=== PATIENT | female | born 1975 | race Asian ===

== ENCOUNTER 2020-11-27 10:47 | Outpatient (REF) | payer OTHER, SELFPAY ==
[2020-12-01 22:52] LABS: HPV mRNA E6/E7 rflx Not Detected (Not Detected)
== END 2020-11-27 10:48 | disposition home or self-care (01) ==
LOC: HO.LAB 10:47
PROVIDERS: PCP Internal Medicine; Visit Provider Advanced Practice Midwife
DX: Z01.419 Encounter for gynecological examination (general) (routine) without abnormal findings (principal); Z11.51 Encounter for screening for human papillomavirus (HPV); E66.9 Obesity, unspecified; Z68.37 Body mass index [BMI] 37.0-37.9, adult
CPT/HCPCS: 36415; 87624; 88142

== ENCOUNTER 2021-02-03 09:02 | Outpatient (REF) | payer OTHER, SELFPAY ==
[2021-02-03 11:25] LABS: MANUAL DIFF FLAG NO
[2021-02-03 11:34] LABS: Basophils Percent Auto 0.3 % (0-2); Eosinophils Absolute Auto 0.2 X10*3/uL (0.0-0.4); Eosinophils Percent Auto 2.6 % (0-4); Hematocrit 40.9 % (37-47); Hemoglobin 13.9 g/dl (12.0-16.0); Imm Gran Abs Auto 0.03 X10*3/uL (0.00-0.03); Imm Gran Pct Auto 0.5 % (0.0-0.4); Lymphocytes Absolute Auto 2.4 X10*3/uL (1.2-4.9); Lymphocytes Percent Auto 36.9 % (20-40); Mean Corpuscular Hemoglobin 29.1 pg (27.0-33.0); Mean Corpuscular Volume 85.7 fL (80-98); Mean Platelet Volume 13.1 fL (9.4-12.3); Monocytes Absolute Auto 0.3 X10*3/uL (0.1-1.2); Monocytes Percent Auto 4.4 % (2-11); Neutrophils Absolute Auto 3.6 X10*3/uL (2.0-8.3); Neutrophils Percent Auto 55.3 % (45-73); Platelet Count 137 X10*3/uL (160-400); Red Blood Count 4.77 X10*6/uL (4.20-5.50); Red Cell Distribution Width 12.1 % (11.0-16.0); White Blood Count 6.4 X10*3/uL (4.8-10.8)
[2021-02-03 11:41] LABS: Estimated Average Glucose 206 mg/dL; Hemoglobin A1c % 8.8 %
[2021-02-03 11:57] LABS: Creatinine Urine 148.28 mg/dL; Microalbum/Creatinine Ratio Ur 13.4 ug/mg cr
[2021-02-03 12:26] LABS: Alanine Aminotransferase 91 U/L (0-31); Albumin Level 4.2 g/dL (3.5-5.0); Alkaline Phosphatase 101 U/L (39-117); Anion Gap 15 (12-20); Aspartate Amino Transferase 50 U/L (5-31); Bilirubin Total 0.6 mg/dL (0.0-1.0); Blood Urea Nitrogen 12 mg/dL (9-16); Calcium 8.4 mg/dL (8.4-10.2); Carbon Dioxide 16 mmol/L (22-29); Chloride 109 mmol/L (96-108); Cholesterol 171 mg/dL; Estimated Glomerular Filt Rate > 60; Glucose Fasting 272 mg/dL (60-99); HDL Cholesterol 40 mg/dL; LDL Cholesterol Calculated 90 mg/dl; Potassium 4.1 mmol/L (3.3-5.1); Sodium 136 mmol/L (135-145); Total Protein 7.4 g/dL (6.5-8.0); Triglycerides 207 mg/dL
[2021-02-05 20:52] LABS: TS Negative Control Passed; TS Panel A 3; TS Panel B 1; TS Positive Control Passed; TSpotTB Negative (SeeBelow)
== END 2021-02-03 09:03 | disposition home or self-care (01) ==
LOC: HO.HMGCLDS 09:02
PROVIDERS: Absent Provider Physician Assistant Medical; PCP Internal Medicine; Visit Provider Physician Assistant Medical
DX: L40.0 Psoriasis vulgaris (principal); E66.9 Obesity, unspecified; E78.5 Hyperlipidemia, unspecified; E11.65 Type 2 diabetes mellitus with hyperglycemia; Z79.899 Other long term (current) drug therapy
CPT/HCPCS: 36415; 80053; 80061; 82043; 83036; 85025; 86481

== ENCOUNTER 2021-09-13 18:19 | Emergency (ER) | payer OTHER, SELFPAY ==
[2021-09-13 18:35] VITALS: BP 142/88; BP 166/84; PULSE 92; PULSE 97; RESP 16; TEMP 36.2; O2SAT 98; BMI 36.8
[2021-09-13 18:39] VITALS: BP 142/88; PULSE 92; RESP 16; TEMP 36.2; O2SAT 98
--- NOTE | 2021-09-13 18:47 | ED_ITS ---
HPI - Psych General Chief Complaint: Psychiatric Symptoms Stated Complaint: crisis Time Seen by Provider: 09/13/21 18:41 Source: patient Limitations: no limitations History of Present Illness HPI Narrative: c/o depression SI, she has hx of prior psych hospitalization in the past MD complaint: suicidal ideation Onset (ago): day(s) (2) Duration: constant History of same: Yes Relieving factors: none Exacerbating factors: none Context: significant life stressor Associated psychiatric symptoms: depression and suicidal ideation Associated symptoms: denies other symptoms Related Data Previous Rx's Medication Instructions Recorded blood sugar diagnostic (FreeStyle #100 ea 09/29/20 Lite Strips) blood-glucose meter (FreeStyle #1 ea 09/29/20 Lite Meter) metformin 1,000 mg tablet 1,000 mg PO BID #60 tab 11/09/20 fluconazole 150 mg tablet 150 mg PO ONCE #1 tab 02/04/21 (Diflucan) lancets 28 gauge (FreeStyle #100 ea 02/04/21 Lancets) Allergies Allergy/AdvReac Type Severity Reaction Status Date / Time No Known Allergies Allergy Verified 02/04/21 12:46 [No Known Allergies*] Review of Systems Review of Systems: Yes all other systems are reviewed and are negative Eyes: Eyes: Reports no additional eye complaints Cardiovascular: Cardiovascular: Reports no additional cardiovascular complaints Respiratory: Respiratory: Reports no additional respiratory complaints Musculoskeletal: Musculoskeletal: Reports no additional musculoskeletal complaints PMFSH Past Medical History Attestation statement: The following information was validated with the patient. Medical History Bipolar disorder Dyslipidemia Obesity Psoriasis Type 2 diabetes mellitus with hyperglycemia, without long-term current use of insulin Surgical History H/O LEEP History of removal of cyst History of tooth extraction Remove/insert IUD Family History Family History Father Asthma Emphysema lung Diabetes mellitus Mother History of heart attack Cervical cancer Iron deficiency CVD (cardiovascular disease) Paternal Grandfather History of heart attack Daughter No problems noted. Son No problems noted. Social History Social History Alcohol intake: former Advance Directives: No Advance Directives Information Provided: No Physical Exam Vital Signs: Vital Signs: Last Vital Signs Temp 97.1 F 09/13/21 18:39 Pulse 92 09/13/21 18:39 Resp 16 09/13/21 18:39 BP 142/88 H 09/13/21 18:39 Pulse Ox 98 09/13/21 18:39 Body Mass Index 36.8 Const: General: cooperative and no acute distress HENMT: Head: Yes normal to inspection and Yes normocephalic Face and sinus: Yes normal facial exam Mouth: Normal oral and palatal mucosa present Throat: Yes posterior oropharynx normal Neck: Neck: Yes normal visual inspection and Yes full ROM Thyroid: Thyroid normal Chest: Chest palpation & inspection: normal inspection of the chest Resp: Effort & Inspection: normal respiratory effort Auscultation: clear to auscultation bilaterally Cardio: Jugular venous distension: no JVD Rate: regular rate Rhythm: regular rhythm GI: Inspection: Yes normal to inspection Palpation (GI): Soft to palpation, not firm, nontender and no guarding Auscultation: normal bowel sounds Extrem: Other: self inflicted abrasions both forearms Course Reevaluation(s) Reevaluation #1: signed off to Dr Dale [facility] [place] - Psych Lab Data Result diagrams: 09/13/21 19:50 09/13/21 19:50 Labs: Lab Results 09/13/21 09/13/21 09/13/21 Range/Units 19:21 19:21 19:22 WBC (4.8-10.8) X10*3/uL RBC (4.20-5.50) X10*6/uL Hgb (12.0-16.0) g/dl Hct (37.0-47.0) % MCV (80.0-98.0) fL MCH (27.0-33.0) pg MCHC (31.0-35.0) g/dl RDW (11.0-16.0) % Plt Count (160-400) X10*3/uL MPV (9.4-12.3) fL Immature Gran % (Auto) (0.0-0.4) % Neut % (Auto) (45-73) % Lymph % (Auto) (20-40) % [place] % (Auto) (2-11) % Eos % (Auto) (0-4) % Baso % (Auto) (0-2) % Lymph # (Auto) (1.2-4.9) X10*3/uL [place] # (Auto) (0.1-1.2) X10*3/uL Eos # (Auto) (0.0-0.4) X10*3/uL Baso # (Auto) (0.0-0.2) X10*3/uL Abs Immat Gran (auto) (0.00-0.03) X10*3/uL Absolute Neuts (auto) (2.0-8.3) x10*3/uL Absolute Nucleated RBC (0.0-0.012) X10*3/uL Nucleated RBC % (auto) (0.0-0.2) /100WBC Sodium (135-145) mmol/L Potassium (3.3-5.1) mmol/L Chloride (96-108) mmol/L Carbon Dioxide (22-29) mmol/L Anion Gap (12-20) BUN (9-16) mg/dL Creatinine (0.5-1.4) mg/dL Estim Creat Clear Calc Estimated GFR Random Glucose (60-115) mg/dL Calcium (8.4-10.2) mg/dL Urine Color YELLOW Urine Appearance CLEAR Urine pH 5.5 (5.0-8.0) Ur Specific [place] 1.020 (1.005-1.025) Urine Protein NEG (NEG-TRACE) MG/DL Urine Glucose (UA) NEG (NEG) MG/DL Urine Ketones 15 (NEG) MG/DL Urine Blood NEG (NEG) Urine Nitrite NEG (NEG) Ur Leukocyte Esterase NEG (NEG) Urine RBC 0 (0) /HPF Urine WBC 0-2 (0-4) /HPF Ur Squamous Epith Cells 2+ /LPF Urine Bacteria TRACE /LPF Urine Mucus 1+ /LPF Urine Test (NEGATIVE) Urine Opiates Screen Not Detected (Not Detect) Urine Fentanyl Screen Not Detected (Not Detect) Ur Barbiturates Screen Not Detected (Not Detect) Ur Phencyclidine Scrn Not Detected (Not Detect) Ur Amphetamines Screen Not Detected (Not Detect) U Benzodiazepines Scrn Not Detected (Not Detect) Urine Cocaine Screen Not Detected (Not Detect) U Marijuana (THC) Screen Not Detected (Not Detect) Ethyl Alcohol mg/dL COVID-19 ([place]) Negative (Negative) COVID-19 Clin Com See Note 09/13/21 09/13/21 09/13/21 Range/Units 19:22 19:50 19:50 WBC 7.3 (4.8-10.8) X10*3/uL RBC 5.10 (4.20-5.50) X10*6/uL Hgb 14.8 (12.0-16.0) g/dl Hct 42.2 (37.0-47.0) % MCV 82.7 (80.0-98.0) fL MCH 29.0 (27.0-33.0) pg MCHC 35.1 H (31.0-35.0) g/dl RDW 12.0 (11.0-16.0) % Plt Count 149 L (160-400) X10*3/uL MPV 12.0 (9.4-12.3) fL Immature Gran % (Auto) 0.4 (0.0-0.4) % Neut % (Auto) 65.9 (45-73) % Lymph % (Auto) 29.9 (20-40) % [place] % (Auto) 3.0 (2-11) % Eos % (Auto) 0.5 (0-4) % Baso % (Auto) 0.3 (0-2) % Lymph # (Auto) 2.2 (1.2-4.9) X10*3/uL [place] # (Auto) 0.2 (0.1-1.2) X10*3/uL Eos # (Auto) 0.0 (0.0-0.4) X10*3/uL Baso # (Auto) 0.0 (0.0-0.2) X10*3/uL Abs Immat Gran (auto) 0.03 (0.00-0.03) X10*3/uL Absolute Neuts (auto) 4.8 (2.0-8.3) x10*3/uL Absolute Nucleated RBC 0.000 (0.0-0.012) X10*3/uL Nucleated RBC % (auto) 0.0 (0.0-0.2) /100WBC Sodium 137 (135-145) mmol/L Potassium 4.2 (3.3-5.1) mmol/L Chloride 105 (96-108) mmol/L Carbon Dioxide 22 (22-29) mmol/L Anion Gap 14 (12-20) BUN 5 L D (9-16) mg/dL Creatinine 0.73 (0.5-1.4) mg/dL Estim Creat Clear Calc 110.3 Estimated GFR > 60 Random Glucose 201 H (60-115) mg/dL Calcium 8.9 (8.4-10.2) mg/dL Urine Color Urine Appearance Urine pH (5.0-8.0) Ur Specific [place] (1.005-1.025) Urine Protein (NEG-TRACE) MG/DL Urine Glucose (UA) (NEG) MG/DL Urine Ketones (NEG) MG/DL Urine Blood (NEG) Urine Nitrite (NEG) Ur Leukocyte Esterase (NEG) Urine RBC (0) /HPF Urine WBC (0-4) /HPF Ur Squamous Epith Cells /LPF Urine Bacteria /LPF Urine Mucus /LPF Urine Test NEGATIVE (NEGATIVE) Urine Opiates Screen (Not Detect) Urine Fentanyl Screen (Not Detect) Ur Barbiturates Screen (Not Detect) Ur Phencyclidine Scrn (Not Detect) Ur Amphetamines Screen (Not Detect) U Benzodiazepines Scrn (Not Detect) Urine Cocaine Screen (Not Detect) U Marijuana (THC) Screen (Not Detect) Ethyl Alcohol mg/dL COVID-19 ([place]) (Negative) COVID-19 Clin Com 09/13/21 Range/Units 19:50 WBC (4.8-10.8) X10*3/uL RBC (4.20-5.50) X10*6/uL Hgb (12.0-16.0) g/dl Hct (37.0-47.0) % MCV (80.0-98.0) fL MCH (27.0-33.0) pg MCHC (31.0-35.0) g/dl RDW (11.0-16.0) % Plt Count (160-400) X10*3/uL MPV (9.4-12.3) fL Immature Gran % (Auto) (0.0-0.4) % Neut % (Auto) (45-73) % Lymph % (Auto) (20-40) % [place] % (Auto) (2-11) % Eos % (Auto) (0-4) % Baso % (Auto) (0-2) % Lymph # (Auto) (1.2-4.9) X10*3/uL [place] # (Auto) (0.1-1.2) X10*3/uL Eos # (Auto) (0.0-0.4) X10*3/uL Baso # (Auto) (0.0-0.2) X10*3/uL Abs Immat Gran (auto) (0.00-0.03) X10*3/uL Absolute Neuts (auto) (2.0-8.3) x10*3/uL Absolute Nucleated RBC (0.0-0.012) X10*3/uL Nucleated RBC % (auto) (0.0-0.2) /100WBC Sodium (135-145) mmol/L Potassium (3.3-5.1) mmol/L Chloride (96-108) mmol/L Carbon Dioxide (22-29) mmol/L Anion Gap (12-20) BUN (9-16) mg/dL Creatinine (0.5-1.4) mg/dL Estim Creat Clear Calc Estimated GFR Random Glucose (60-115) mg/dL Calcium (8.4-10.2) mg/dL Urine Color Urine Appearance Urine pH (5.0-8.0) Ur Specific [place] (1.005-1.025) Urine Protein (NEG-TRACE) MG/DL Urine Glucose (UA) (NEG) MG/DL Urine Ketones (NEG) MG/DL Urine Blood (NEG) Urine Nitrite (NEG) Ur Leukocyte Esterase (NEG) Urine RBC (0) /HPF Urine WBC (0-4) /HPF Ur Squamous Epith Cells /LPF Urine Bacteria /LPF Urine Mucus /LPF Urine Test (NEGATIVE) Urine Opiates Screen (Not Detect) Urine Fentanyl Screen (Not Detect) Ur Barbiturates Screen (Not Detect) Ur Phencyclidine Scrn (Not Detect) Ur Amphetamines Screen (Not Detect) U Benzodiazepines Scrn (Not Detect) Urine Cocaine Screen (Not Detect) U Marijuana (THC) Screen (Not Detect) Ethyl Alcohol < 10 mg/dL COVID-19 ([place]) (Negative) COVID-19 Clin Com Discharge Plan Discharge Clinical Impression: Depression Prescriptions: No Action metformin 1,000 mg tablet 1,000 mg PO BID Qty: 60 RF: 5 (DME) FreeStyle Lite Strips Strip See Rx Instructions .ROUTE .MEDSUPPLY Qty: 100 RF: 8 (DME) blood-glucose meter [FreeStyle Lite Meter] Kit See Rx Instructions .ROUTE .MEDSUPPLY Qty: 1 RF: 0 (DME) lancets [FreeStyle Lancets] 28 gauge misc See Rx Instructions .ROUTE .MEDSUPPLY Qty: 100 RF: 8 fluconazole [Diflucan] 150 mg tablet 150 mg PO ONCE Qty: 1 RF: 0
[2021-09-13 19:39] LABS: Appearance Urine CLEAR; Color Urine YELLOW; Glucose Urine UA NEG (NEG); Leukocyte Esterase Urine NEG (NEG); Nitrite Urine NEG (NEG); PH 5.5 (5.0-8.0); Urine Blood NEG (NEG); Urine Ketones 15 MG/DL (NEG); Urine Protein NEG (NEG-TRACE)
[2021-09-13 19:40] LABS: UPreg QC Valid YES; Urine Pregnancy NEGATIVE (NEGATIVE)
[2021-09-13 19:45] LABS: COVID-19 Test Negative (Negative)
[2021-09-13 19:49] LABS: Amphetamine Screen Urine Not Detected (Not Detect); Barbiturates, Urine Not Detected (Not Detect); Benzodiazepines Screen Urine Not Detected (Not Detect); Cannabinoid Screen Urine Not Detected (Not Detect); Cocaine Screen Urine Not Detected (Not Detect); Fentanyl, urine Not Detected (Not Detect); Opiate Screen Urine Not Detected (Not Detect); Phencyclidine Screen Urine Not Detected (Not Detect)
[2021-09-13 19:49] LABS: Bacteria Urine TRACE /LPF; Mucus Urine 1+ /LPF; RBC Urine 0 /HPF (0); Squamous Epithelial Cell Urine 2+ /LPF; WBC Urine 0-2 /HPF (0-4)
[2021-09-13 19:59] LABS: Basophils Percent Auto 0.3 % (0-2); Eosinophils Percent Auto 0.5 % (0-4); Hematocrit 42.2 % (37.0-47.0); Hemoglobin 14.8 g/dl (12.0-16.0); Imm Gran Abs Auto 0.03 X10*3/uL (0.00-0.03); Imm Gran Pct Auto 0.4 % (0.0-0.4); Lymphocytes Absolute Auto 2.2 X10*3/uL (1.2-4.9); Lymphocytes Percent Auto 29.9 % (20-40); MANUAL DIFF FLAG NO; Mean Corpuscular HGB Conc 35.1 g/dl (31.0-35.0); Mean Corpuscular Volume 82.7 fL (80.0-98.0); Monocytes Absolute Auto 0.2 X10*3/uL (0.1-1.2); Neutrophils Absolute Auto 4.8 x10*3/uL (2.0-8.3); Neutrophils Percent Auto 65.9 % (45-73); Platelet Count 149 X10*3/uL (160-400); White Blood Count 7.3 X10*3/uL (4.8-10.8)
[2021-09-13 20:22] LABS: Anion Gap 14 (12-20); Blood Urea Nitrogen 5 mg/dL (9-16); Calcium 8.9 mg/dL (8.4-10.2); Carbon Dioxide 22 mmol/L (22-29); Chloride 105 mmol/L (96-108); Creatinine Clr Calc Pharmacy 110.3; Estimated Glomerular Filt Rate > 60; Glucose Random 201 mg/dL (60-115); Potassium 4.2 mmol/L (3.3-5.1); Sodium 137 mmol/L (135-145)
[2021-09-13 20:23] LABS: Ethanol < 10 mg/dL
[2021-09-13] MEDS: Acetaminophen 325 MG TABLET 650 MG PO (23:26)
[2021-09-14 00:21] VITALS: BP 146/89; PULSE 86; RESP 16; TEMP 36.7; O2SAT 96
[2021-09-14 06:08] LABS: Glucose, Whole Blood 192 mg/dL (60-115)
--- NOTE | 2021-09-14 06:20 | PC.NURSE ---
Patient slept through the night, no distress observed/reported, POC at 0600 was 192, behavior pleasant and calm, VSS, patient is disposition Ana F/U by care team and likely to get discharge, will continue to monitor.
--- NOTE | 2021-09-14 07:17 | PC.NURSE ---
patient appears in no distress at present respirations are even and unlabored.
[2021-09-14 07:56] VITALS: BP 137/80; PULSE 92; RESP 13; TEMP 36.8; O2SAT 96
--- NOTE | 2021-09-14 10:24 | PHA.MEDREC ---
Pharmacy Consult ? Medication Reconciliation Pharmacy has completed the medication reconciliation. Patient reports she is suppose to be on metformin but has not taken any medications in 2 years. Margie Schumacher, PharmD
--- NOTE | 2021-09-14 10:30 | MHC.CARE ---
CARE Team met with patient this morning, she was alert and oriented and easy to engage. She spoke about the events leading up to yesterday, was insightful and articulate, appeared to be speaking with honesty. Identified the triggers (anniversary dates, stress managing her children and their father/numerous providers) with limited natural supports, recent break up. At this time patient denied feeling suicidal, she is remorseful about her actions yesterday, said she wants to live. She is in a DBT group and identified several coping skills, has a therapy appointment today. Detailed safety plan completed with patient including ways to distract, friends, providers and Crisis contact information. Provider, SAMIR Benites updated and in agreement with plan. Patient transported home via [facility]
--- NOTE | 2021-09-15 17:43 | MHC.CARE ---
Pt called back inform the CARE team that she was able to obtain an appointment with her therapist for Monday and also able to obtain more appointments throughout the week. Pt informed this film writer she is doing better and she was advised to call us for any questions or support.
== END 2021-09-14 10:43 | disposition home or self-care (01) ==
PROVIDERS: Emergency Provider Emergency Medicine; PCP Internal Medicine
DX: F32.A Depression, unspecified (principal); R45.851 Suicidal ideations; F31.9 Bipolar disorder, unspecified; F43.10 Post-traumatic stress disorder, unspecified; E11.9 Type 2 diabetes mellitus without complications; Z20.822 Contact with and (suspected) exposure to COVID-19; Z79.899 Other long term (current) drug therapy
CPT/HCPCS: 36415; 80048; 80307; 81001; 81025; 82077; 82947; 85025; 87635; 99284

== ENCOUNTER 2021-09-26 10:37 | Inpatient (IN) | payer OTHER, SELFPAY ==
[2021-09-26 10:56] VITALS: BP 135/90; BP 137/87; PULSE 88; PULSE 91; RESP 18; TEMP 37.6; O2SAT 100; O2SAT 97; BMI 37.8
--- NOTE | 2021-09-26 11:32 | ED_ITS ---
HPI - Psych General Chief Complaint: Psychiatric Symptoms Stated Complaint: CRISIS,SI,SELF INFLICTED CUTS L ARM, SECTION 12 Time Seen by Provider: 09/26/21 11:03 Source: patient Mode of arrival: EMS Limitations: no limitations History of Present Illness HPI Narrative: 46-year-old female with past medical history of anxiety, depression, bipolar, PTSD, presents for feeling suicidal with a plan. Her plan is to kill herself with the pills that her brother did not find. She states to me that she is determined to kill herself when she gets discharged. Patient cut her left upper extremity and left upper thigh today with broken glass. States she feels numb, she has no hope, no choice. She has been more depressed for the last 2 months, and her aunt recently . States she is not taking any of her medications because she does not care about herself anymore. States she does not even care about staying alive for her children. Patient states she is not on any psychiatric medications for last 2 years due to homelessness. She currently lives with her brother. She has a therapist and attended DBT group. Denies homicidal ideation, denies hallucinations. States she had 2 prior psychiatric hospitalizations in the last 2 years. States she has had prior suicidal ideation. Denies taking any pills today, denies drug use, denies alcohol use. MD complaint: suicidal ideation, feels depressed and anxiety Onset (ago): month(s) Duration: constant History of same: Yes Relieving factors: none Exacerbating factors: other (Recent family member's ) Context: not taking psychiatric medications and significant life stressor Associated psychiatric symptoms: depression and suicidal ideation Associated symptoms: nausea Treatments prior to arrival: placed on mental health hold If self harm: admits thoughts of self harm, has plan and self-inflicted trauma Details of plan: To take pills that her brother has Related Data Home Medications Medication Instructions Recorded Confirmed No Known Home Meds 09/14/21 09/26/21 Allergies Allergy/AdvReac Type Severity Reaction Status Date / Time No Known Allergies Allergy Verified 02/04/21 12:46 [No Known Allergies*] Review of Systems Constitutional: Constitutional: Denies body ache(s), Denies chills, Reports fatigue, Denies fever(s), Reports headache(s), Denies malaise and Denies weakness Eyes: Eyes: Denies diplopia ENT: Denies vertigo, Denies dizziness, Denies otalgia, Reports headache(s), Denies mouth pain, Denies post nasal drip, Denies sinus pain, Denies sinus pressure, Denies sore throat and Denies throat swelling Cardiovascular: Cardiovascular: Denies chest pain, Denies syncope, Denies leg edema, Denies lightheadedness, Denies Loss of Consciousness, Denies palpitations and Denies dyspnea Respiratory: Respiratory: Denies chest congestion, Denies cough and Denies dyspnea Gastrointestinal: Gastrointestinal: Denies abdominal pain, Denies hematochezia, Denies constipation, Reports diarrhea, Reports nausea and Denies vomiting Musculoskeletal: Musculoskeletal: Reports no additional musculoskeletal complaints Neurologic: Denies confusion, Denies vertigo, Denies dizziness, Denies syncope, Reports headache(s) and Denies weakness Psychiatric: Psychiatric: Reports anxiety, Denies confusion, Reports depression, Denies auditory hallucinations, Reports hopelessness, Reports anhedonia, Denies paranoia, Denies visual hallucinations, Denies hallucinations, Denies tactile hallucinations, Denies homicidal ideation and Reports suicidal ideation Endocrine: Endocrine: Reports fatigue and Denies palpitations Allergic/Immunologic: Allergic/Immunologic: Denies throat swelling PMFSH Past Medical History Medical History Bipolar disorder Dyslipidemia Obesity Psoriasis Type 2 diabetes mellitus with hyperglycemia, without long-term current use of insulin Surgical History H/O LEEP History of removal of cyst History of tooth extraction Remove/insert IUD Family History Family History Father Asthma Emphysema lung Diabetes mellitus Mother History of heart attack Cervical cancer Iron deficiency CVD (cardiovascular disease) Paternal Grandfather History of heart attack Daughter No problems noted. Son No problems noted. Social History Social History Alcohol intake: former Advance Directives: No Advance Directives Information Provided: No Patient : No Physical Exam Vital Signs: Vital Signs: Last Vital Signs Temp 99.7 F 09/26/21 10:56 Pulse 91 09/26/21 10:56 Resp 18 09/26/21 10:56 BP 137/87 09/26/21 10:56 Pulse Ox 97 09/26/21 10:56 BMI result Body Mass Index 37.8 Const: General: alert, awake and acute distress (anxious, tearful) moderate; No confusion Nutritional Appearance: well nourished Orientation/consciousness: patient oriented x3 and No confusion Limitations: no limitations HENMT: Head: Yes normal to inspection, Yes normocephalic and Yes atraumatic Ears: hearing grossly normal bilaterally, external ears normal, TM's normal bilaterally and EAC's normal General nose exam: Normal external nose present Face and sinus: Yes normal facial exam and Yes sinuses nontender Mouth: Normal oral and palatal mucosa present Throat: Yes posterior oropharynx normal Eyes: Conjunctivae: conjunctivae normal Pupils: Equal, round and reactive pupils present EOM: EOMs intact bilaterally Neck: Neck: Yes full ROM, Yes no lymphadenopathy and Yes supple Resp: Effort & Inspection: normal respiratory effort and able to speak in complete sentences Auscultation: clear to auscultation bilaterally, no crackles, no rales, no rhonchi and no wheezes Cardio: Rate: regular rate Rhythm: regular rhythm Heart sounds: S1 normal heart sound present and S2 normal heart sound present GI: Inspection: Yes normal to inspection Palpation (GI): Soft to palpation, nontender, no guarding and not rigid Percussion: Yes normal to percussion Auscultation: normal bowel sounds Skin: Other: Multiple superficial cuts to left upper extremity, several superficial cuts to left upper anterior thigh No bleeding, no cellulitis Neuro: General: patient oriented x3 and No confusion Cranial nerves: Yes Equal, round and reactive pupils present Extrem: General: Yes normal to inspection and Yes full ROM Psych: Appearance: grossly normal Affect: normal affect Attitude: cooperative Thought process: Normal thought process present Course Course Course Narrative: 46-year-old patient who is suicidal with plan. On exam, patient is tearful and distressed. She feels nauseous. Gave Ativan, Zofran, psych admit labs. Patient has superficial cuts to her left upper extremity and left upper thigh Reevaluation(s) Reevaluation #1: Spoke to be a chin, patient is actively suicidal, patient will be a bed search MDM - Psych Lab Data Result diagrams: 09/26/21 12:05 09/26/21 12:05 Labs: Lab Results 09/26/21 09/26/21 09/26/21 Range/Units 12:05 12:05 12:05 WBC 5.7 (4.8-10.8) X10*3/uL RBC 4.95 (4.20-5.50) X10*6/uL Hgb 14.6 (12.0-16.0) g/dl Hct 41.6 (37.0-47.0) % MCV 84.0 (80.0-98.0) fL MCH 29.5 (27.0-33.0) pg MCHC 35.1 H (31.0-35.0) g/dl RDW 12.1 (11.0-16.0) % Plt Count 163 (160-400) X10*3/uL MPV 11.9 (9.4-12.3) fL Immature Gran % (Auto) 0.2 (0.0-0.4) % Neut % (Auto) 63.1 (45-73) % Lymph % (Auto) 31.5 (20-40) % [place] % (Auto) 4.0 (2-11) % Eos % (Auto) 0.7 (0-4) % Baso % (Auto) 0.5 (0-2) % Lymph # (Auto) 1.8 (1.2-4.9) X10*3/uL [place] # (Auto) 0.2 (0.1-1.2) X10*3/uL Eos # (Auto) 0.0 (0.0-0.4) X10*3/uL Baso # (Auto) 0.0 (0.0-0.2) X10*3/uL Abs Immat Gran (auto) 0.01 (0.00-0.03) X10*3/uL Absolute Neuts (auto) 3.6 (2.0-8.3) x10*3/uL Absolute Nucleated RBC 0.000 (0.0-0.012) X10*3/uL Nucleated RBC % (auto) 0.0 (0.0-0.2) /100WBC Sodium 138 (135-145) mmol/L Potassium 4.0 (3.3-5.1) mmol/L Chloride 105 (96-108) mmol/L Carbon Dioxide 23 (22-29) mmol/L Anion Gap 14 (12-20) BUN 9 (9-16) mg/dL Creatinine 0.80 (0.5-1.4) mg/dL Estim Creat Clear Calc 102.1 Estimated GFR > 60 Random Glucose 290 H (60-115) mg/dL Calcium 9.3 (8.4-10.2) mg/dL Total Bilirubin 1.4 H (0.0-1.0) mg/dL AST 37 H (5-31) U/L ALT 59 H (0-31) U/L Alkaline Phosphatase 98 (39-117) U/L Total Protein 7.8 (6.5-8.0) g/dL Albumin 4.3 (3.5-5.0) g/dL Urine Color Urine Appearance Urine pH (5.0-8.0) Ur Specific [place] (1.005-1.025) Urine Protein (NEG-TRACE) MG/DL Urine Glucose (UA) (NEG) MG/DL Urine Ketones (NEG) MG/DL Urine Blood (NEG) Urine Nitrite (NEG) Ur Leukocyte Esterase (NEG) Urine RBC (0) /HPF Urine WBC (0-4) /HPF Ur Squamous Epith Cells /LPF Calcium Oxalate Crystal /LPF Amorphous Sediment /LPF Urine Bacteria /LPF Urine Test (NEGATIVE) Salicylates < 5.0 L (15-30) mg/dL Urine Opiates Screen (Not Detect) Urine Fentanyl Screen (Not Detect) Acetaminophen < 1 (<30) mcg/mL Ur Barbiturates Screen (Not Detect) Ur Phencyclidine Scrn (Not Detect) Ur Amphetamines Screen (Not Detect) U Benzodiazepines Scrn (Not Detect) Urine Cocaine Screen (Not Detect) U Marijuana (THC) Screen (Not Detect) Ethyl Alcohol mg/dL COVID-19 ([place]) Negative (Negative) COVID-19 Clin Com See Note 09/26/21 09/26/21 09/26/21 Range/Units 12:05 12:38 12:38 WBC (4.8-10.8) X10*3/uL RBC (4.20-5.50) X10*6/uL Hgb (12.0-16.0) g/dl Hct (37.0-47.0) % MCV (80.0-98.0) fL MCH (27.0-33.0) pg MCHC (31.0-35.0) g/dl RDW (11.0-16.0) % Plt Count (160-400) X10*3/uL MPV (9.4-12.3) fL Immature Gran % (Auto) (0.0-0.4) % Neut % (Auto) (45-73) % Lymph % (Auto) (20-40) % [place] % (Auto) (2-11) % Eos % (Auto) (0-4) % Baso % (Auto) (0-2) % Lymph # (Auto) (1.2-4.9) X10*3/uL [place] # (Auto) (0.1-1.2) X10*3/uL Eos # (Auto) (0.0-0.4) X10*3/uL Baso # (Auto) (0.0-0.2) X10*3/uL Abs Immat Gran (auto) (0.00-0.03) X10*3/uL Absolute Neuts (auto) (2.0-8.3) x10*3/uL Absolute Nucleated RBC (0.0-0.012) X10*3/uL Nucleated RBC % (auto) (0.0-0.2) /100WBC Sodium (135-145) mmol/L Potassium (3.3-5.1) mmol/L Chloride (96-108) mmol/L Carbon Dioxide (22-29) mmol/L Anion Gap (12-20) BUN (9-16) mg/dL Creatinine (0.5-1.4) mg/dL Estim Creat Clear Calc Estimated GFR Random Glucose (60-115) mg/dL Calcium (8.4-10.2) mg/dL Total Bilirubin (0.0-1.0) mg/dL AST (5-31) U/L ALT (0-31) U/L Alkaline Phosphatase (39-117) U/L Total Protein (6.5-8.0) g/dL Albumin (3.5-5.0) g/dL Urine Color YELLOW Urine Appearance CLOUDY Urine pH 5.5 (5.0-8.0) Ur Specific [place] >= 1.030 H (1.005-1.025) Urine Protein 2+ H (NEG-TRACE) MG/DL Urine Glucose (UA) 500 H (NEG) MG/DL Urine Ketones 15 (NEG) MG/DL Urine Blood 1+ H (NEG) Urine Nitrite NEG (NEG) Ur Leukocyte Esterase NEG (NEG) Urine RBC 0-2 (0) /HPF Urine WBC 0-2 (0-4) /HPF Ur Squamous Epith Cells 3+ /LPF Calcium Oxalate Crystal 1+ /LPF Amorphous Sediment 2+ /LPF Urine Bacteria 2+ /LPF Urine Test NEGATIVE (NEGATIVE) Salicylates (15-30) mg/dL Urine Opiates Screen (Not Detect) Urine Fentanyl Screen (Not Detect) Acetaminophen (<30) mcg/mL Ur Barbiturates Screen (Not Detect) Ur Phencyclidine Scrn (Not Detect) Ur Amphetamines Screen (Not Detect) U Benzodiazepines Scrn (Not Detect) Urine Cocaine Screen (Not Detect) U Marijuana (THC) Screen (Not Detect) Ethyl Alcohol < 10 mg/dL COVID-19 ([place]) (Negative) COVID-19 Clin Com 09/26/21 Range/Units 12:38 WBC (4.8-10.8) X10*3/uL RBC (4.20-5.50) X10*6/uL Hgb (12.0-16.0) g/dl Hct (37.0-47.0) % MCV (80.0-98.0) fL MCH (27.0-33.0) pg MCHC (31.0-35.0) g/dl RDW (11.0-16.0) % Plt Count (160-400) X10*3/uL MPV (9.4-12.3) fL Immature Gran % (Auto) (0.0-0.4) % Neut % (Auto) (45-73) % Lymph % (Auto) (20-40) % [place] % (Auto) (2-11) % Eos % (Auto) (0-4) % Baso % (Auto) (0-2) % Lymph # (Auto) (1.2-4.9) X10*3/uL [place] # (Auto) (0.1-1.2) X10*3/uL Eos # (Auto) (0.0-0.4) X10*3/uL Baso # (Auto) (0.0-0.2) X10*3/uL Abs Immat Gran (auto) (0.00-0.03) X10*3/uL Absolute Neuts (auto) (2.0-8.3) x10*3/uL Absolute Nucleated RBC (0.0-0.012) X10*3/uL Nucleated RBC % (auto) (0.0-0.2) /100WBC Sodium (135-145) mmol/L Potassium (3.3-5.1) mmol/L Chloride (96-108) mmol/L Carbon Dioxide (22-29) mmol/L Anion Gap (12-20) BUN (9-16) mg/dL Creatinine (0.5-1.4) mg/dL Estim Creat Clear Calc Estimated GFR Random Glucose (60-115) mg/dL Calcium (8.4-10.2) mg/dL Total Bilirubin (0.0-1.0) mg/dL AST (5-31) U/L ALT (0-31) U/L Alkaline Phosphatase (39-117) U/L Total Protein (6.5-8.0) g/dL Albumin (3.5-5.0) g/dL Urine Color Urine Appearance Urine pH (5.0-8.0) Ur Specific [place] (1.005-1.025) Urine Protein (NEG-TRACE) MG/DL Urine Glucose (UA) (NEG) MG/DL Urine Ketones (NEG) MG/DL Urine Blood (NEG) Urine Nitrite (NEG) Ur Leukocyte Esterase (NEG) Urine RBC (0) /HPF Urine WBC (0-4) /HPF Ur Squamous Epith Cells /LPF Calcium Oxalate Crystal /LPF Amorphous Sediment /LPF Urine Bacteria /LPF Urine Test (NEGATIVE) Salicylates (15-30) mg/dL Urine Opiates Screen Not Detected (Not Detect) Urine Fentanyl Screen Not Detected (Not Detect) Acetaminophen (<30) mcg/mL Ur Barbiturates Screen Not Detected (Not Detect) Ur Phencyclidine Scrn Not Detected (Not Detect) Ur Amphetamines Screen Not Detected (Not Detect) U Benzodiazepines Scrn Not Detected (Not Detect) Urine Cocaine Screen Not Detected (Not Detect) U Marijuana (THC) Screen Not Detected (Not Detect) Ethyl Alcohol mg/dL COVID-19 ([place]) (Negative) COVID-19 Clin Com Discharge Plan Discharge Clinical Impression: Suicidal ideation, Acute hyperglycemia Patient Disposition: Still a Patient Prescriptions: No Action No Known Home Meds RF: 0
[2021-09-26] MEDS: LORazepam 1 MG TABLET 2 MG PO ×2 (11:34→22:56)
[2021-09-26] MEDS: Ondansetron ODT 4 MG TAB.RAPDIS TRANSLINGU ×2 (11:34→20:47)
[2021-09-26 12:14] LABS: MANUAL DIFF FLAG NO
[2021-09-26 12:16] LABS: Basophils Percent Auto 0.5 % (0-2); Eosinophils Percent Auto 0.7 % (0-4); Hematocrit 41.6 % (37.0-47.0); Hemoglobin 14.6 g/dl (12.0-16.0); Imm Gran Abs Auto 0.01 X10*3/uL (0.00-0.03); Imm Gran Pct Auto 0.2 % (0.0-0.4); Lymphocytes Absolute Auto 1.8 X10*3/uL (1.2-4.9); Lymphocytes Percent Auto 31.5 % (20-40); Mean Corpuscular HGB Conc 35.1 g/dl (31.0-35.0); Mean Corpuscular Hemoglobin 29.5 pg (27.0-33.0); Mean Platelet Volume 11.9 fL (9.4-12.3); Monocytes Absolute Auto 0.2 X10*3/uL (0.1-1.2); Neutrophils Absolute Auto 3.6 x10*3/uL (2.0-8.3); Neutrophils Percent Auto 63.1 % (45-73); Platelet Count 163 X10*3/uL (160-400); Red Blood Count 4.95 X10*6/uL (4.20-5.50); Red Cell Distribution Width 12.1 % (11.0-16.0); White Blood Count 5.7 X10*3/uL (4.8-10.8)
[2021-09-26 12:28] LABS: COVID-19 Test Negative (Negative)
[2021-09-26 12:38] LABS: Ethanol < 10 mg/dL
[2021-09-26 12:42] LABS: Acetaminophen LAB < 1 mcg/mL (<30); Alanine Aminotransferase 59 U/L (0-31); Albumin Level 4.3 g/dL (3.5-5.0); Alkaline Phosphatase 98 U/L (39-117); Anion Gap 14 (12-20); Aspartate Amino Transferase 37 U/L (5-31); Bilirubin Total 1.4 mg/dL (0.0-1.0); Blood Urea Nitrogen 9 mg/dL (9-16); Calcium 9.3 mg/dL (8.4-10.2); Carbon Dioxide 23 mmol/L (22-29); Chloride 105 mmol/L (96-108); Creatinine Clr Calc Pharmacy 102.1; Estimated Glomerular Filt Rate > 60; Glucose Random 290 mg/dL (60-115); Salicylate < 5.0 mg/dL (15-30); Sodium 138 mmol/L (135-145); Total Protein 7.8 g/dL (6.5-8.0)
[2021-09-26 13:06] LABS: Appearance Urine CLOUDY; Color Urine YELLOW; Glucose Urine UA 500 MG/DL (NEG); Leukocyte Esterase Urine NEG (NEG); Nitrite Urine NEG (NEG); PH 5.5 (5.0-8.0); Specific Gravity - Urine >= 1.030 (1.005-1.025); UACC Culture Trigger NO; Urine Blood 1+ (NEG); Urine Ketones 15 MG/DL (NEG); Urine Protein 2+ MG/DL (NEG-TRACE)
[2021-09-26 13:09] LABS: UPreg QC Valid YES; Urine Pregnancy NEGATIVE (NEGATIVE)
[2021-09-26 13:24] LABS: WBC Urine 0-2 /HPF (0-4)
[2021-09-26 13:25] LABS: Amorphous Sediment Urine 2+ /LPF; Bacteria Urine 2+ /LPF; Calcium Oxalate Crystals Urine 1+ /LPF; RBC Urine 0-2 /HPF (0); Squamous Epithelial Cell Urine 3+ /LPF
[2021-09-26 14:23] LABS: Amphetamine Screen Urine Not Detected (Not Detect); Barbiturates, Urine Not Detected (Not Detect); Benzodiazepines Screen Urine Not Detected (Not Detect); Cannabinoid Screen Urine Not Detected (Not Detect); Cocaine Screen Urine Not Detected (Not Detect); Fentanyl, urine Not Detected (Not Detect); Opiate Screen Urine Not Detected (Not Detect); Phencyclidine Screen Urine Not Detected (Not Detect)
[2021-09-26] MEDS: LORazepam 1 MG TABLET PO (16:26)
--- NOTE | 2021-09-26 17:05 | PC.NURSE ---
patients brother phone number: [phone]
[2021-09-26] MEDS: metFORMIN HCl 500 MG TABLET PO (20:07)
[2021-09-26 20:08] LABS: Glucose, Whole Blood 289 mg/dL (60-115)
[2021-09-26] MEDS: OLANZapine 10 MG TABLET PO (22:56)
--- NOTE | 2021-09-26 23:14 | PC.NURSE ---
Patient reported having intrusive thought, patient was observed head banging, provider notified/ordered Ativan 2 mg PO and Olanzapine 10 mg PO, administered as ordered/pending effect, will continue to monitor.
--- NOTE | 2021-09-27 06:09 | PC.NURSE ---
Patient slept through the night, no distress observed/reported, behavior appropriate at time does head banging due to intrusive thought process as reported by the patient, mood depressed and sad, medication compliant, disposition is section 12 inpatient bed search with no update on bed search status, vss, will continue to monitor.
[2021-09-27 09:28] VITALS: BP 113/71; PULSE 86; RESP 16; TEMP 36.4; O2SAT 98
[2021-09-27 18:00] VITALS: BP 136/86; PULSE 107; RESP 18; TEMP 36.5; O2SAT 97
[2021-09-27] MEDS: hydrOXYzine HCL 25 MG TABLET PO (21:30)
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
[2021-09-28 06:00] VITALS: BP 128/62; PULSE 72; RESP 18; TEMP 36.2; O2SAT 96
[2021-09-28 08:33] LABS: Estimated Average Glucose 235 mg/dL; Hemoglobin A1c % 9.8 %
[2021-09-28 08:46] LABS: Cholesterol 172 mg/dL; HDL Cholesterol 34 mg/dL; LDL Cholesterol Calculated 104 mg/dl; Magnesium 2.1 mg/dL (1.6-2.6); Triglycerides 173 mg/dL
[2021-09-28 09:07] LABS: Free T4 (Free Thyroxine) 1.04 ng/dL (0.71-1.85); Thyroid Stimulating Hormone 2.25 uIU/mL (0.32-4.0)
[2021-09-28 09:34] LABS: Folate 17.1 ng/mL (> or = 4.0); Vitamin B12 405 pg/mL (200-900)
[2021-09-28] MEDS: LORazepam 1 MG TABLET PO (11:55)
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
[2021-09-28] MEDS: lamoTRIgine 25 MG TABLET PO (19:00)
[2021-09-28] MEDS: QUEtiapine Fumarate 50 MG TABLET PO (19:01)
[2021-09-28] MEDS: hydrOXYzine HCL 25 MG TABLET PO (19:04)
[2021-09-29 06:00] VITALS: BP 113/57; PULSE 75; RESP 16; TEMP 36.2; O2SAT 95
[2021-09-29] MEDS: Sertraline HCL 25 MG TABLET PO (08:43)
[2021-09-29] MEDS: LORazepam 1 MG TABLET PO (15:56)
[2021-09-29] MEDS: Bacitracin Oint 14 GM TUBE 1 APPL TOPICAL (16:04)
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
[2021-09-29 16:10] LABS: Glucose, Whole Blood 303 mg/dL (60-115)
[2021-09-29 17:56] VITALS: BP 137/75; PULSE 108; RESP 16; TEMP 37.3; O2SAT 96
[2021-09-29] MEDS: Melatonin 3 MG TABLET PO (20:13)
[2021-09-29] MEDS: Prazosin HCL 1 MG CAPSULE PO (20:13)
[2021-09-29] MEDS: lamoTRIgine 25 MG TABLET PO (20:13)
[2021-09-29] MEDS: QUEtiapine Fumarate 50 MG TABLET PO (20:13)
[2021-09-30 06:32] VITALS: BP 132/66; PULSE 82; RESP 18; TEMP 36.2; O2SAT 94
[2021-09-30 07:00] VITALS: BMI 34.7
[2021-09-30 08:03] LABS: Glucose, Whole Blood 225 mg/dL (60-115)
[2021-09-30] MEDS: Sertraline HCL 25 MG TABLET PO (08:51)
[2021-09-30 12:08] LABS: Glucose, Whole Blood 328 mg/dL (60-115)
[2021-09-30] MEDS: metFORMIN HCl 500 MG TABLET PO ×2 (12:11→17:34)
[2021-09-30] MEDS: Magnesium Hydrox/Alum Hydrox 30 ML ORAL.SUSP PO (14:16)
[2021-09-30 16:27] LABS: Glucose, Whole Blood 307 mg/dL (60-115)
[2021-09-30 18:00] VITALS: BP 131/69; PULSE 99; RESP 18; TEMP 36.7; O2SAT 96
[2021-09-30 20:02] VITALS: BP 132/66; PULSE 82
[2021-09-30] MEDS: Prazosin HCL 1 MG CAPSULE PO (20:02)
[2021-09-30] MEDS: Melatonin 3 MG TABLET PO (20:04)
[2021-09-30] MEDS: QUEtiapine Fumarate 50 MG TABLET PO (20:04)
[2021-09-30] MEDS: lamoTRIgine 25 MG TABLET PO (20:04)
[2021-09-30] MEDS: Bacitracin Oint 14 GM TUBE 1 APPL TOPICAL (20:39)
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
[2021-10-01 06:00] VITALS: BP 127/71; PULSE 102; RESP 14; TEMP 36.3; O2SAT 98
[2021-10-01] MEDS: metFORMIN HCl 500 MG TABLET PO (08:31)
[2021-10-01] MEDS: Sertraline HCL 50 MG TABLET PO (08:31)
[2021-10-01 08:44] LABS: Glucose, Whole Blood 220 mg/dL (60-115)
[2021-10-01] MEDS: Bacitracin Oint 14 GM TUBE 1 APPL TOPICAL (08:49)
--- NOTE | 2021-10-01 11:19 | PM.PSYDC ---
DS: Providers Provider Date of Service: 10/01/21 Date of admission: 09/27/21 15:08 Date of discharge: 10/01/21 Primary care physician: Unknown Physician Admitting clinician: Kareen Kelly Attending physician on admission: Chapo Bolden Attending physician on discharge: Chapo Boldne Discharging clinician: Kareen Kelly DS: Diagnosis Discharge Diagnosis (1) PTSD (post-traumatic stress disorder): Status: Acute (2) Bipolar disorder: Status: Acute DS: Medications Discharge Medications Home Medications: Previous Rx's Medication Instructions Recorded lamotrigine 25 mg tablet 25 mg PO BEDTIME #15 tab 10/01/21 melatonin 3 mg tablet 3 mg PO BEDTIME #15 tab 10/01/21 metformin 500 mg tablet 500 mg PO BIDWM #30 tab 10/01/21 prazosin 1 mg capsule 1 mg PO BEDTIME #15 cap 10/01/21 quetiapine 100 mg tablet (Seroquel) 100 mg PO BEDTIME #15 tab 10/01/21 sertraline 50 mg tablet 50 mg PO DAILY #15 tab 10/01/21 Mental Status Exam Mental Status Exam Patient Appearance: Appropriate Patient Orientation: Person, Place, Time and Situation Level of Consciousness: Alert Patient Behavior: Appropriate, Talkative and Good Eye Contact Mood Description: Anxious and Nervous Affect Description: Flat Patient Cognition Impaired: No Ability to Follow Directions: Good Speech Pattern: Spontaneous Speech Memory Description: Intact Hallucinations: None Delusions: Not Present Thought Process: Goal Oriented Thought Content: positive for Circumstantial and positive for Suicidal Ideation (denies) Depressive Symptoms: Increased Anxiety and Thoughts of /Suicide (denies) Judgement: Good Data Data Completed and Pending Completed studies during hospitalization [Text1]: 09/26/21 09/26/21 09/26/21 12:05 12:05 12:05 WBC 5.7 RBC 4.95 Hgb 14.6 Hct 41.6 MCV 84.0 MCH 29.5 MCHC 35.1 H RDW 12.1 Plt Count 163 MPV 11.9 Immature Gran % (Auto) 0.2 Neut % (Auto) 63.1 Lymph % (Auto) 31.5 [place] % (Auto) 4.0 Eos % (Auto) 0.7 Baso % (Auto) 0.5 Lymph # (Auto) 1.8 [place] # (Auto) 0.2 Eos # (Auto) 0.0 Baso # (Auto) 0.0 Abs Immat Gran (auto) 0.01 Absolute Neuts (auto) 3.6 Absolute Nucleated RBC 0.000 Nucleated RBC % (auto) 0.0 Sodium 138 Potassium 4.0 Chloride 105 Carbon Dioxide 23 Anion Gap 14 BUN 9 Creatinine 0.80 Estim Creat Clear Calc 102.1 Estimated GFR > 60 POC Glucose Random Glucose 290 H Estimat Average Glucose Hemoglobin A1c % Calcium 9.3 Magnesium Total Bilirubin 1.4 H AST 37 H ALT 59 H Alkaline Phosphatase 98 Total Protein 7.8 Albumin 4.3 Triglycerides Cholesterol LDL Cholesterol, Calc HDL Cholesterol Vitamin B12 Folate TSH Free T4 Urine Color Urine Appearance Urine pH Ur Specific [place] Urine Protein Urine Glucose (UA) Urine Ketones Urine Blood Urine Nitrite Ur Leukocyte Esterase Urine RBC Urine WBC Ur Squamous Epith Cells Calcium Oxalate Crystal Amorphous Sediment Urine Bacteria Urine Test Salicylates < 5.0 L Urine Opiates Screen Urine Fentanyl Screen Acetaminophen < 1 Ur Barbiturates Screen Ur Phencyclidine Scrn Ur Amphetamines Screen U Benzodiazepines Scrn Urine Cocaine Screen U Marijuana (THC) Screen Ethyl Alcohol COVID-19 ([place]) Negative COVID-19 Clin Com See Note 09/26/21 09/26/21 09/26/21 12:05 12:38 12:38 WBC RBC Hgb Hct MCV MCH MCHC RDW Plt Count MPV Immature Gran % (Auto) Neut % (Auto) Lymph % (Auto) [place] % (Auto) Eos % (Auto) Baso % (Auto) Lymph # (Auto) [place] # (Auto) Eos # (Auto) Baso # (Auto) Abs Immat Gran (auto) Absolute Neuts (auto) Absolute Nucleated RBC Nucleated RBC % (auto) Sodium Potassium Chloride Carbon Dioxide Anion Gap BUN Creatinine Estim Creat Clear Calc Estimated GFR POC Glucose Random Glucose Estimat Average Glucose Hemoglobin A1c % Calcium Magnesium Total Bilirubin AST ALT Alkaline Phosphatase Total Protein Albumin Triglycerides Cholesterol LDL Cholesterol, Calc HDL Cholesterol Vitamin B12 Folate TSH Free T4 Urine Color YELLOW Urine Appearance CLOUDY Urine pH 5.5 Ur Specific [place] >= 1.030 H Urine Protein 2+ H Urine Glucose (UA) 500 H Urine Ketones 15 Urine Blood 1+ H Urine Nitrite NEG Ur Leukocyte Esterase NEG Urine RBC 0-2 Urine WBC 0-2 Ur Squamous Epith Cells 3+ Calcium Oxalate Crystal 1+ Amorphous Sediment 2+ Urine Bacteria 2+ Urine Test NEGATIVE Salicylates Urine Opiates Screen Urine Fentanyl Screen Acetaminophen Ur Barbiturates Screen Ur Phencyclidine Scrn Ur Amphetamines Screen U Benzodiazepines Scrn Urine Cocaine Screen U Marijuana (THC) Screen Ethyl Alcohol < 10 COVID-19 ([place]) COVID-19 Clin Com 09/26/21 09/26/21 09/28/21 12:38 20:03 07:51 WBC RBC Hgb Hct MCV MCH MCHC RDW Plt Count MPV Immature Gran % (Auto) Neut % (Auto) Lymph % (Auto) [place] % (Auto) Eos % (Auto) Baso % (Auto) Lymph # (Auto) [place] # (Auto) Eos # (Auto) Baso # (Auto) Abs Immat Gran (auto) Absolute Neuts (auto) Absolute Nucleated RBC Nucleated RBC % (auto) Sodium Potassium Chloride Carbon Dioxide Anion Gap BUN Creatinine Estim Creat Clear Calc Estimated GFR POC Glucose 289 H Random Glucose Estimat Average Glucose 235 Hemoglobin A1c % 9.8 Calcium Magnesium Total Bilirubin AST ALT Alkaline Phosphatase Total Protein Albumin Triglycerides Cholesterol LDL Cholesterol, Calc HDL Cholesterol Vitamin B12 Folate TSH Free T4 Urine Color Urine Appearance Urine pH Ur Specific [place] Urine Protein Urine Glucose (UA) Urine Ketones Urine Blood Urine Nitrite Ur Leukocyte Esterase Urine RBC Urine WBC Ur Squamous Epith Cells Calcium Oxalate Crystal Amorphous Sediment Urine Bacteria Urine Test Salicylates Urine Opiates Screen Not Detected Urine Fentanyl Screen Not Detected Acetaminophen Ur Barbiturates Screen Not Detected Ur Phencyclidine Scrn Not Detected Ur Amphetamines Screen Not Detected U Benzodiazepines Scrn Not Detected Urine Cocaine Screen Not Detected U Marijuana (THC) Screen Not Detected Ethyl Alcohol COVID-19 ([place]) COVID-19 Clin Com 09/28/21 09/28/21 09/29/21 07:51 07:51 16:01 WBC RBC Hgb Hct MCV MCH MCHC RDW Plt Count MPV Immature Gran % (Auto) Neut % (Auto) Lymph % (Auto) [place] % (Auto) Eos % (Auto) Baso % (Auto) Lymph # (Auto) [place] # (Auto) Eos # (Auto) Baso # (Auto) Abs Immat Gran (auto) Absolute Neuts (auto) Absolute Nucleated RBC Nucleated RBC % (auto) Sodium Potassium Chloride Carbon Dioxide Anion Gap BUN Creatinine Estim Creat Clear Calc Estimated GFR POC Glucose 303 H Random Glucose Estimat Average Glucose Hemoglobin A1c % Calcium Magnesium 2.1 Total Bilirubin AST ALT Alkaline Phosphatase Total Protein Albumin Triglycerides 173 Cholesterol 172 LDL Cholesterol, Calc 104 HDL Cholesterol 34 Vitamin B12 405 Folate 17.1 TSH 2.25 Free T4 1.04 Urine Color Urine Appearance Urine pH Ur Specific [place] Urine Protein Urine Glucose (UA) Urine Ketones Urine Blood Urine Nitrite Ur Leukocyte Esterase Urine RBC Urine WBC Ur Squamous Epith Cells Calcium Oxalate Crystal Amorphous Sediment Urine Bacteria Urine Test Salicylates Urine Opiates Screen Urine Fentanyl Screen Acetaminophen Ur Barbiturates Screen Ur Phencyclidine Scrn Ur Amphetamines Screen U Benzodiazepines Scrn Urine Cocaine Screen U Marijuana (THC) Screen Ethyl Alcohol COVID-19 ([place]) COVID-19 [employer] 09/30/21 09/30/21 09/30/21 08:00 12:05 16:16 WBC RBC Hgb Hct MCV MCH MCHC RDW Plt Count MPV Immature Gran % (Auto) Neut % (Auto) Lymph % (Auto) [place] % (Auto) Eos % (Auto) Baso % (Auto) Lymph # (Auto) [place] # (Auto) Eos # (Auto) Baso # (Auto) Abs Immat Gran (auto) Absolute Neuts (auto) Absolute Nucleated RBC Nucleated RBC % (auto) Sodium Potassium Chloride Carbon Dioxide Anion Gap BUN Creatinine Estim Creat Clear Calc Estimated GFR POC Glucose 225 H 328 H 307 H Random Glucose Estimat Average Glucose Hemoglobin A1c % Calcium Magnesium Total Bilirubin AST ALT Alkaline Phosphatase Total Protein Albumin Triglycerides Cholesterol LDL Cholesterol, Calc HDL Cholesterol Vitamin B12 Folate TSH Free T4 Urine Color Urine Appearance Urine pH Ur Specific [place] Urine Protein Urine Glucose (UA) Urine Ketones Urine Blood Urine Nitrite Ur Leukocyte Esterase Urine RBC Urine WBC Ur Squamous Epith Cells Calcium Oxalate Crystal Amorphous Sediment Urine Bacteria Urine Test Salicylates Urine Opiates Screen Urine Fentanyl Screen Acetaminophen Ur Barbiturates Screen Ur Phencyclidine Scrn Ur Amphetamines Screen U Benzodiazepines Scrn Urine Cocaine Screen U Marijuana (THC) Screen Ethyl Alcohol COVID-19 ([place]) COVID-19 [employer] 10/01/21 08:40 WBC RBC Hgb Hct MCV MCH MCHC RDW Plt Count MPV Immature Gran % (Auto) Neut % (Auto) Lymph % (Auto) [place] % (Auto) Eos % (Auto) Baso % (Auto) Lymph # (Auto) [place] # (Auto) Eos # (Auto) Baso # (Auto) Abs Immat Gran (auto) Absolute Neuts (auto) Absolute Nucleated RBC Nucleated RBC % (auto) Sodium Potassium Chloride Carbon Dioxide Anion Gap BUN Creatinine Estim Creat Clear Calc Estimated GFR POC Glucose 220 H Random Glucose Estimat Average Glucose Hemoglobin A1c % Calcium Magnesium Total Bilirubin AST ALT Alkaline Phosphatase Total Protein Albumin Triglycerides Cholesterol LDL Cholesterol, Calc HDL Cholesterol Vitamin B12 Folate TSH Free T4 Urine Color Urine Appearance Urine pH Ur Specific [place] Urine Protein Urine Glucose (UA) Urine Ketones Urine Blood Urine Nitrite Ur Leukocyte Esterase Urine RBC Urine WBC Ur Squamous Epith Cells Calcium Oxalate Crystal Amorphous Sediment Urine Bacteria Urine Test Salicylates Urine Opiates Screen Urine Fentanyl Screen Acetaminophen Ur Barbiturates Screen Ur Phencyclidine Scrn Ur Amphetamines Screen U Benzodiazepines Scrn Urine Cocaine Screen U Marijuana (THC) Screen Ethyl Alcohol COVID-19 ([place]) COVID-19 Clin Com 09/26/21 12:38 Urine clean catch - Clean Catch Midstream Urine Culture - Final Strep agalactiae (Grp B) DS: Summary Hospital Course Hospital Course: Admission to adult psychiatry to address symptoms of PTSD, Bipolar Disorder, situational crisis and cessation of medications. Care plan, medication regime and out patient plan of care prior to admission were reviewed. Education was provided regarding management of symptoms, medication and side effects. Nursing and social service worked with Leisa on collateral contacts, planning care, education regarding management of symptoms, medicines and discharge planning. Lamictal, Seroquel and Sertraline were re-started. Prazosin was initiated. Leisa plans to attend [facility] after discharge to continue to process relationship issues which contributed to her crisis prior to admission. Time spent discussing smoking cessation with patient: 3 to 10 minutes Status at Discharge Cognitive/behavioral status at discharge: non-psychotic, non suicidal Functional status at discharge: independent ambulation Overall status at discharge: patient is progressing back to baseline Time Spent with Patient Time attestation: Total time spent providing and/or coordinating discharge services: 35 Time spent: Greater than 30 minutes Discharge Plan Discharge Patient Disposition: Home, Self-Care Discharge Diagnosis: PTSD Bipolar Disorder Referrals: Hosea PARRA [Other] - 10/29/21 10:30 am (Initial Psychiatric Medication Evaluation following Discharge from [facility] Call [facility] to confirm whether this is an in office or tele-health appointment.) [facility] [Other] - 1 Week (Referral for [facility]) Delicia Moctezuma [Other] - 10/07/21 2:00 pm (Follow-up appointment with outpatient therapist following discharge from [facility] Karen Jain MD [Physician] - 1 Week (office will call her with appointment) Discharge Medications: New metformin 500 mg Tablet 500 mg PO BIDWM Qty: 30 RF: 1 prazosin 1 mg Capsule 1 mg PO BEDTIME Qty: 15 RF: 1 melatonin 3 mg Tablet 3 mg PO BEDTIME Qty: 15 RF: 1 lamotrigine 25 mg Tablet 25 mg PO BEDTIME Qty: 15 RF: 1 sertraline 50 mg Tablet 50 mg PO DAILY Qty: 15 RF: 1 quetiapine [Seroquel] 100 mg tablet 100 mg PO BEDTIME Qty: 15 RF: 1 Discharge Orders: Discharge Order (Routine); Ordered 10/01/21 Ordered By: Kareen Kelly Diet: advance to usual diet and diabetic diet Activity on Discharge: As tolerated Stand Alone Forms: Patient Portal Discharge page, Community Support Care Plan Goals: Mood Stabilization Health Concerns: PTSD Bipolar Disorder Diabetes-hyperglycemia; Re-started on Metformin Plan of Treatment: Take medications as directed Attend appointments as scheduled Monitor blood sugars regularly Assessment: Non-psychotic, non-suicidal. Pt reports feeling prepared for discharge, wanting to return to her life and family. Believes she has a better emotional grasp on loss of relationship and is ready to move forward and feeling able to set appropriate boundaries. Discharge Date/Time: 10/01/21 14:30
[2021-10-01] MEDS: Magnesium Hydrox/Alum Hydrox 30 ML ORAL.SUSP PO (12:14)
== END 2021-10-01 14:30 | disposition home or self-care (01) | DRG 753 ==
LOC: HO.ED 18:49 → HO.PM5 09-27 15:15
PROVIDERS: Physician Assistant; Admitting Provider Psychiatry & Neurology Psychiatry; Emergency Provider Emergency Medicine; Visit Provider Clinical Nurse Specialist Psychiatric/Mental Health, Adult
DX: F31.9 Bipolar disorder, unspecified (principal); R45.851 Suicidal ideations; Z91.19 Patient's noncompliance with other medical treatment and regimen; F43.10 Post-traumatic stress disorder, unspecified; Z20.822 Contact with and (suspected) exposure to COVID-19; Z23 Encounter for immunization; Z79.84 Long term (current) use of oral hypoglycemic drugs; Z79.899 Other long term (current) drug therapy
CPT/HCPCS: 36415; 80053; 80061; 80143; 80179; 80307; 81001; 81025; 82077; 82607; 82746; 82947; 83036; 83735; 84439; 84443; 85025; 87086; 87147; 87635; 90686; 99285

== ENCOUNTER 2021-10-08 08:40 | Emergency (ER) | payer OTHER, SELFPAY ==
[2021-10-08] VITALS (11 sets, daily range): BP systolic 102–114; BP diastolic 46–67; PULSE 64–91; RESP 16–18; TEMP 36.4–37.1; O2SAT 93–100; BMI 32.5
--- NOTE | 2021-10-08 08:39 | ED_ITS ---
HPI - Overdose General Chief Complaint: Psychiatric Symptoms Stated Complaint: overdose on psych med Time Seen by Provider: 10/08/21 08:47 Source: patient Mode of arrival: EMS Limitations: no limitations History of Present Illness MD complaint: intentional overdose Onset (ago): hour(s) (7am) Intent: suicide attempt How Overdose Was Discovered: called family/friend Context: Intentional Overdose: other Associated symptoms: depression Treatments Prior to Arrival: none Related Data Previous Rx's Medication Instructions Recorded lamotrigine 25 mg tablet 25 mg PO BEDTIME #15 tab 10/01/21 melatonin 3 mg tablet 3 mg PO BEDTIME #15 tab 10/01/21 metformin 500 mg tablet 500 mg PO BIDWM #30 tab 10/01/21 prazosin 1 mg capsule 1 mg PO BEDTIME #15 cap 10/01/21 quetiapine 100 mg tablet (Seroquel) 100 mg PO BEDTIME #15 tab 10/01/21 sertraline 50 mg tablet 50 mg PO DAILY #15 tab 10/01/21 Allergies Allergy/AdvReac Type Severity Reaction Status Date / Time trazodone AdvReac Unknown Weakness Verified 09/28/21 01:08 Review of Systems Review of Systems: Constitutional : No Fever, No Chills ENT/Mouth : No Ear Pain, No Nasal Congestion, No sore throat Eyes: No Eye Pain, No Swelling, No Redness Cardiovascular : No Chest Pain, No SOB Respiratory : No Cough, No Sputum, No Dyspnea Gastrointestinal : No Nausea, No Vomiting, No Diarrhea, No Hematochezia, No Melena Genitourinary : No Dysuria, No Urinary Frequency, No Hematuria Musculoskeletal : No Myalgias Skin : No Skin Lesions, No rash Neuro : No Weakness, No Numbness, No Paresthesias, No Dizziness, No Headache Psych : positive Anxiety, positive Depression, positive SI no HI Heme/Lymph: No Lymphadenopathy Endocrine : No Polyuria, No Polydipsia All other systems reviewed and are negative [facility] Past Medical History Medical History Bipolar disorder Dyslipidemia Obesity Psoriasis PTSD (post-traumatic stress disorder) Type 2 diabetes mellitus with hyperglycemia, without long-term current use of i nsulin Surgical History H/O LEEP History of removal of cyst History of tooth extraction Remove/insert IUD Family History Family History Father Asthma Emphysema lung Diabetes mellitus Mother History of heart attack Cervical cancer Iron deficiency CVD (cardiovascular disease) Paternal Grandfather History of heart attack Daughter No problems noted. Son No problems noted. Social History Social History Household Members: Other Household Members Other:: Brother Housing: House Do you presently have visiting nurse or other home services: No Alcohol intake: former Patient Tobacco Use Status: Current someday Tobacco user Tobacco use type: Cigarette e-Cigarette/Vaping Use: Never Used Second Hand Smoke Exposure: No Advance Directives: No Advance Directives Information Provided: No service: No Sexual orientation: Straight/Heterosexual Physical Exam Vital Signs: Vital Signs: Last Vital Signs Temp 97.6 F 10/08/21 16:00 Pulse 91 10/08/21 16:00 Resp 18 10/08/21 16:00 BP 114/60 10/08/21 16:00 Pulse Ox 93 10/08/21 16:00 BMI result Body Mass Index 32.5 Appearance: Alert. Oriented X3. No acute distress. Eyes: Pupils equal, round and reactive to light. ENT: Pharynx normal. Neck: Normal inspection. Neck supple. CVS: Normal heart rate and rhythm. Pulses normal. Respiratory: No respiratory distress. Breath sounds normal. Abdomen: Soft and nontender. Skin: Skin warm and dry. Normal skin color. Normal skin turgor. Extremities: No lower extremity edema. No calf ttp Neuro: Oriented X 3. No motor deficit. No sensory deficit. CN2 -12 intact no clonus 2+ patella reflexes bilaterally Course Course Course Narrative: medically cleared at this time stable EKG and labs obs x 6 hours easily woken Physician observation started at 109pm Patient placed in physician observation because the patient needed more time for [facility] to assess the need for inpatient assessment given attempt. At the time observation was started the patient's vitals were stable, patient is alert and oriented, Neuro: nonfocal, CV RRR, Lungs clear signed out pending consult MDM - Overdose MDM Narrative Medical decision making narrative: 46 yo female with DM, PTSD, depression took 250mg of her boyfriends chlorpromazine in SI attempt at 7am at this time will obtain EKG, tox labs, she is on section 12, will have RN consult poison control - once medically cleared will discuss with [facility] Lab Data Result diagrams: 10/08/21 09:49 10/08/21 12:39 Labs: Lab Results 10/08/21 10/08/21 10/08/21 Range/Units 09:42 09:49 09:49 WBC 3.9 L (4.8-10.8) X10*3/uL RBC 4.61 (4.20-5.50) X10*6/uL Hgb 13.4 (12.0-16.0) g/dl Hct 38.9 (37.0-47.0) % MCV 84.4 (80.0-98.0) fL MCH 29.1 (27.0-33.0) pg MCHC 34.4 (31.0-35.0) g/dl RDW 12.1 (11.0-16.0) % Plt Count 143 L (160-400) X10*3/uL MPV 12.1 (9.4-12.3) fL Immature Gran % (Auto) 0.5 H (0.0-0.4) % Neut % (Auto) 61.3 (45-73) % Lymph % (Auto) 33.3 (20-40) % [place] % (Auto) 4.1 (2-11) % Eos % (Auto) 0.5 (0-4) % Baso % (Auto) 0.3 (0-2) % Lymph # (Auto) 1.3 (1.2-4.9) X10*3/uL [place] # (Auto) 0.2 (0.1-1.2) X10*3/uL Eos # (Auto) 0.0 (0.0-0.4) X10*3/uL Baso # (Auto) 0.0 (0.0-0.2) X10*3/uL Abs Immat Gran (auto) 0.02 (0.00-0.03) X10*3/uL Absolute Neuts (auto) 2.4 (2.0-8.3) x10*3/uL Absolute Nucleated RBC 0.000 (0.0-0.012) X10*3/uL Nucleated RBC % (auto) 0.0 (0.0-0.2) /100WBC PT 11.9 (9.9-13.0) SEC INR 1.0 (0.9-1.1) APTT 23.6 L (24.1-38.0) SEC VBG pH (7.32-7.43) VBG pCO2 mmHg VBG pO2 mmHg VBG HCO3 (22-26) mmol/L VBG O2 Saturation % VBG Base Excess mmol/L Sodium (135-145) mmol/L Potassium (3.3-5.1) mmol/L Chloride (96-108) mmol/L Carbon Dioxide (22-29) mmol/L Anion Gap (12-20) BUN (9-16) mg/dL Creatinine (0.5-1.4) mg/dL Estim Creat Clear Calc Estimated GFR Random Glucose (60-115) mg/dL Calcium (8.4-10.2) mg/dL Magnesium (1.6-2.6) mg/dL Total Bilirubin (0.0-1.0) mg/dL Direct Bilirubin (0.0-0.5) mg/dL AST (5-31) U/L ALT (0-31) U/L Alkaline Phosphatase (39-117) U/L Total Protein (6.5-8.0) g/dL Albumin (3.5-5.0) g/dL Beta HCG, Quant < 2 mIU/mL Salicylates (15-30) mg/dL Acetaminophen (<30) mcg/mL Ethyl Alcohol mg/dL COVID-19 ([place]) (Negative) COVID-19 Clin Com 10/08/21 10/08/21 10/08/21 Range/Units 09:49 09:49 09:49 WBC (4.8-10.8) X10*3/uL RBC (4.20-5.50) X10*6/uL Hgb (12.0-16.0) g/dl Hct (37.0-47.0) % MCV (80.0-98.0) fL MCH (27.0-33.0) pg MCHC (31.0-35.0) g/dl RDW (11.0-16.0) % Plt Count (160-400) X10*3/uL MPV (9.4-12.3) fL Immature Gran % (Auto) (0.0-0.4) % Neut % (Auto) (45-73) % Lymph % (Auto) (20-40) % [place] % (Auto) (2-11) % Eos % (Auto) (0-4) % Baso % (Auto) (0-2) % Lymph # (Auto) (1.2-4.9) X10*3/uL [place] # (Auto) (0.1-1.2) X10*3/uL Eos # (Auto) (0.0-0.4) X10*3/uL Baso # (Auto) (0.0-0.2) X10*3/uL Abs Immat Gran (auto) (0.00-0.03) X10*3/uL Absolute Neuts (auto) (2.0-8.3) x10*3/uL Absolute Nucleated RBC (0.0-0.012) X10*3/uL Nucleated RBC % (auto) (0.0-0.2) /100WBC PT (9.9-13.0) SEC INR (0.9-1.1) APTT (24.1-38.0) SEC VBG pH (7.32-7.43) VBG pCO2 mmHg VBG pO2 mmHg VBG HCO3 (22-26) mmol/L VBG O2 Saturation % VBG Base Excess mmol/L Sodium 136 (135-145) mmol/L Potassium 3.6 (3.3-5.1) mmol/L Chloride 104 (96-108) mmol/L Carbon Dioxide 23 (22-29) mmol/L Anion Gap 13 (12-20) BUN 7 L (9-16) mg/dL Creatinine 0.88 (0.5-1.4) mg/dL Estim Creat Clear Calc 85.7 Estimated GFR > 60 Random Glucose 278 H (60-115) mg/dL Calcium 8.7 D (8.4-10.2) mg/dL Magnesium 2.1 (1.6-2.6) mg/dL Total Bilirubin 1.2 H (0.0-1.0) mg/dL Direct Bilirubin 0.5 (0.0-0.5) mg/dL AST 34 H (5-31) U/L ALT 48 H (0-31) U/L Alkaline Phosphatase 93 (39-117) U/L Total Protein 7.1 (6.5-8.0) g/dL Albumin 4.0 (3.5-5.0) g/dL Beta HCG, Quant mIU/mL Salicylates < 5.0 L (15-30) mg/dL Acetaminophen < 1 (<30) mcg/mL Ethyl Alcohol < 10 mg/dL COVID-19 ([place]) Negative (Negative) COVID-19 Clin Com See Note 10/08/21 10/08/21 Range/Units 09:53 12:39 WBC (4.8-10.8) X10*3/uL RBC (4.20-5.50) X10*6/uL Hgb (12.0-16.0) g/dl Hct (37.0-47.0) % MCV (80.0-98.0) fL MCH (27.0-33.0) pg MCHC (31.0-35.0) g/dl RDW (11.0-16.0) % Plt Count (160-400) X10*3/uL MPV (9.4-12.3) fL Immature Gran % (Auto) (0.0-0.4) % Neut % (Auto) (45-73) % Lymph % (Auto) (20-40) % [place] % (Auto) (2-11) % Eos % (Auto) (0-4) % Baso % (Auto) (0-2) % Lymph # (Auto) (1.2-4.9) X10*3/uL [place] # (Auto) (0.1-1.2) X10*3/uL Eos # (Auto) (0.0-0.4) X10*3/uL Baso # (Auto) (0.0-0.2) X10*3/uL Abs Immat Gran (auto) (0.00-0.03) X10*3/uL Absolute Neuts (auto) (2.0-8.3) x10*3/uL Absolute Nucleated RBC (0.0-0.012) X10*3/uL Nucleated RBC % (auto) (0.0-0.2) /100WBC PT (9.9-13.0) SEC INR (0.9-1.1) APTT (24.1-38.0) SEC VBG pH 7.43 (7.32-7.43) VBG pCO2 34 mmHg VBG pO2 84 mmHg VBG HCO3 23 (22-26) mmol/L VBG O2 Saturation 97.0 % VBG Base Excess -0.6 mmol/L Sodium 137 (135-145) mmol/L Potassium 3.8 (3.3-5.1) mmol/L Chloride 105 (96-108) mmol/L Carbon Dioxide 24 (22-29) mmol/L Anion Gap 12 (12-20) BUN 7 L (9-16) mg/dL Creatinine 0.83 (0.5-1.4) mg/dL Estim Creat Clear Calc 90.9 Estimated GFR > 60 Random Glucose 225 H (60-115) mg/dL Calcium 8.9 (8.4-10.2) mg/dL Magnesium (1.6-2.6) mg/dL Total Bilirubin 1.1 H (0.0-1.0) mg/dL Direct Bilirubin 0.5 (0.0-0.5) mg/dL AST 34 H (5-31) U/L ALT 49 H (0-31) U/L Alkaline Phosphatase 90 (39-117) U/L Total Protein 7.0 (6.5-8.0) g/dL Albumin 4.0 (3.5-5.0) g/dL Beta HCG, Quant mIU/mL Salicylates (15-30) mg/dL Acetaminophen (<30) mcg/mL Ethyl Alcohol mg/dL COVID-19 ([place]) (Negative) COVID-19 Clin Com ECG Data Attestation: I personally reviewed and interpreted this ECG as follows: ECG interpretation date: 10/08/21 ECG interpretation time: 09:19 Interpretation: Rate: 81 Rhythm: NSR [place]: left Normal P waves. Normal RENEE. Normal QRS complex. ST T wave : inverted III and aVF, no LAURYN qTC: normal prior studies: no acute ischemia The study has been interpreted contemporaneously by me. EKG #2 Rate: 81 Rhythm: NSR [place]: left Normal P waves. Normal RENEE. Normal QRS complex. ST T wave : nonspecific, no LAURYN qTC: normal prior studies: normal no change The study has been interpreted contemporaneously by me. EKG #3 Rate: 93 Rhythm: NSR [place]: left Normal P waves. Normal RENEE. Normal QRS complex. ST T wave : nonspecific no LAURYN qTC: normal prior studies: normal no change The study has been interpreted contemporaneously by me. . Discharge Plan Discharge Clinical Impression: Suicide attempt Intentional overdose Qualifiers: Encounter type: initial encounter Qualified Code(s): T50.902A - Poisoning by unspecified drugs, medicaments and biological substances, intentional self-harm, initial encounter Prescriptions: No Action metformin 500 mg Tablet 500 mg PO BIDWM Qty: 30 RF: 1 prazosin 1 mg Capsule 1 mg PO BEDTIME Qty: 15 RF: 1 melatonin 3 mg Tablet 3 mg PO BEDTIME Qty: 15 RF: 1 lamotrigine 25 mg Tablet 25 mg PO BEDTIME Qty: 15 RF: 1 sertraline 50 mg Tablet 50 mg PO DAILY Qty: 15 RF: 1 quetiapine [Seroquel] 100 mg tablet 100 mg PO BEDTIME Qty: 15 RF: 1
--- NOTE | 2021-10-08 08:48 | ECG_ITS ---
Test Reason : OVERDOSE Blood Pressure : / mmHG Vent. Rate : 081 BPM Atrial Rate : 081 BPM P-R Int : 152 ms QRS Dur : 084 ms QT Int : 400 ms P-R-T Axes : 061 -39 021 degrees QTc Int : 464 ms Normal sinus rhythm Left axis deviation Possible Inferior infarct Abnormal ECG When compared with ECG of 08-OCT-2019 00:03, Incomplete right bundle branch block is no longer Present Referred By: Effie Marshall Electronically Signed By:WOLFGANG SUNSHINE MD
[2021-10-08 09:56] LABS: MANUAL DIFF FLAG NO
[2021-10-08 09:57] LABS: Basophils Percent Auto 0.3 % (0-2); Eosinophils Percent Auto 0.5 % (0-4); Hematocrit 38.9 % (37.0-47.0); Hemoglobin 13.4 g/dl (12.0-16.0); Imm Gran Abs Auto 0.02 X10*3/uL (0.00-0.03); Imm Gran Pct Auto 0.5 % (0.0-0.4); Lymphocytes Absolute Auto 1.3 X10*3/uL (1.2-4.9); Lymphocytes Percent Auto 33.3 % (20-40); Mean Corpuscular HGB Conc 34.4 g/dl (31.0-35.0); Mean Corpuscular Hemoglobin 29.1 pg (27.0-33.0); Mean Corpuscular Volume 84.4 fL (80.0-98.0); Mean Platelet Volume 12.1 fL (9.4-12.3); Monocytes Absolute Auto 0.2 X10*3/uL (0.1-1.2); Monocytes Percent Auto 4.1 % (2-11); Neutrophils Absolute Auto 2.4 x10*3/uL (2.0-8.3); Neutrophils Percent Auto 61.3 % (45-73); Platelet Count 143 X10*3/uL (160-400); Red Blood Count 4.61 X10*6/uL (4.20-5.50); Red Cell Distribution Width 12.1 % (11.0-16.0); White Blood Count 3.9 X10*3/uL (4.8-10.8)
--- NOTE | 2021-10-08 10:10 | PHA.MEDREC ---
Pharmacy Consult ? Medication Reconciliation Pharmacy has completed the medication reconciliation.
[2021-10-08 10:12] LABS: COVID-19 Test Negative (Negative)
[2021-10-08 10:20] LABS: Ethanol < 10 mg/dL
[2021-10-08 10:20] LABS: VBG Base Excess -0.6 mmol/L; VBG HCO3 23 mmol/L (22-26); VBG pCO2 34 mmHg; VBG pH 7.43 (7.32-7.43); VBG pO2 84 mmHg
[2021-10-08 10:21] LABS: Venous Blood Gas Refer to POC result
[2021-10-08 10:25] LABS: Acetaminophen LAB < 1 mcg/mL (<30); Alanine Aminotransferase 48 U/L (0-31); Alkaline Phosphatase 93 U/L (39-117); Anion Gap 13 (12-20); Aspartate Amino Transferase 34 U/L (5-31); Bilirubin Direct 0.5 mg/dL (0.0-0.5); Bilirubin Total 1.2 mg/dL (0.0-1.0); Blood Urea Nitrogen 7 mg/dL (9-16); Calcium 8.7 mg/dL (8.4-10.2); Carbon Dioxide 23 mmol/L (22-29); Chloride 104 mmol/L (96-108); Creatinine Clr Calc Pharmacy 85.7; Estimated Glomerular Filt Rate > 60; Glucose Random 278 mg/dL (60-115); Magnesium 2.1 mg/dL (1.6-2.6); Potassium 3.6 mmol/L (3.3-5.1); Salicylate < 5.0 mg/dL (15-30); Sodium 136 mmol/L (135-145); Total Protein 7.1 g/dL (6.5-8.0)
[2021-10-08 10:26] LABS: Prothrombin Time 11.9 SEC (9.9-13.0)
[2021-10-08 10:31] LABS: Partial Thromboplastin Time 23.6 SEC (24.1-38.0)
[2021-10-08 10:31] LABS: HCG Quantitative < 2 mIU/mL
[2021-10-08] MEDS: Magnesium Sulfate/H2O 2 GM/50 ML PIGGYBACK IV (12:10)
[2021-10-08] MEDS: 0.9 % Sodium Chloride 1,000 ML 999 ML IVCONT (12:11)
--- NOTE | 2021-10-08 13:00 | ECG_ITS ---
Test Reason : PSYCH Blood Pressure : / mmHG Vent. Rate : 081 BPM Atrial Rate : 081 BPM P-R Int : 142 ms QRS Dur : 080 ms QT Int : 388 ms P-R-T Axes : 052 -29 -01 degrees QTc Int : 450 ms Normal sinus rhythm Possible Inferior infarct Nonspecific ST and T wave abnormality When compared with ECG of 08-OCT-2021 09:08, No significant change was found Referred By: Effie Marshall Electronically Signed By:WOLFGANG SUNSHINE MD
[2021-10-08 13:05] LABS: Alanine Aminotransferase 49 U/L (0-31); Alkaline Phosphatase 90 U/L (39-117); Anion Gap 12 (12-20); Aspartate Amino Transferase 34 U/L (5-31); Bilirubin Direct 0.5 mg/dL (0.0-0.5); Bilirubin Total 1.1 mg/dL (0.0-1.0); Blood Urea Nitrogen 7 mg/dL (9-16); Calcium 8.9 mg/dL (8.4-10.2); Carbon Dioxide 24 mmol/L (22-29); Chloride 105 mmol/L (96-108); Creatinine Clr Calc Pharmacy 90.9; Estimated Glomerular Filt Rate > 60; Glucose Random 225 mg/dL (60-115); Potassium 3.8 mmol/L (3.3-5.1); Sodium 137 mmol/L (135-145)
--- NOTE | 2021-10-08 15:48 | ECG_ITS ---
Test Reason : OVERDOSE Blood Pressure : / mmHG Vent. Rate : 093 BPM Atrial Rate : 093 BPM P-R Int : 140 ms QRS Dur : 074 ms QT Int : 376 ms P-R-T Axes : 069 -39 004 degrees QTc Int : 467 ms Normal sinus rhythm Left axis deviation Inferior infarct , age undetermined Abnormal ECG When compared with ECG of 08-OCT-2021 12:31, No significant change was found Referred By: Effie Marshall Electronically Signed By:WOLFGANG SUNSHINE MD
--- NOTE | 2021-10-08 16:23 | PC.NURSE ---
Pt. is lethargic but arousable and able to communicate effectively. ABle to maintain an awakened state. Denies any complaints at this time. Denying SI/HI. calm and coooperative
--- NOTE | 2021-10-08 19:32 | PC.NURSE ---
Patient is in bed resting quietly, when asked how she had been, she reported same thing , issues with boy friend, I need a break from my situation, denied SI/HI/AVH at this time, disposition per report cleared by BHN and care team for crises, pending providers decision, no distress observed/reported, will continue to monitor.
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
--- NOTE | 2021-10-12 17:52 | MHC.CARE ---
CARE Team has made several attempts to check in with pt, but has been unable to reach her at the number she provided. Pt was discharged to respite on 10/08 so it is possible that pt is still in respite which is why she has been unreachable.
== END 2021-10-08 21:55 | disposition home or self-care (01) ==
PROVIDERS: Emergency Provider Emergency Medicine; PCP Internal Medicine
DX: T40.1X1A Poisoning by heroin, accidental (unintentional), initial encounter (principal); R45.851 Suicidal ideations; F43.10 Post-traumatic stress disorder, unspecified; F31.9 Bipolar disorder, unspecified; F11.10 Opioid abuse, uncomplicated; F17.210 Nicotine dependence, cigarettes, uncomplicated; Z20.822 Contact with and (suspected) exposure to COVID-19; Z71.51 Drug abuse counseling and surveillance of drug abuser; Z71.6 Tobacco abuse counseling; Z79.899 Other long term (current) drug therapy
CPT/HCPCS: 36415; 80048; 80076; 80143; 80179; 82077; 82803; 83735; 84702; 85025; 85610; 85730; 87635; 93005; 96361; 96365; 99284; J3475

== ENCOUNTER 2021-11-05 14:35 | Outpatient (REF) | payer OTHER, SELFPAY ==
[2021-11-05 15:37] LABS: Binax Internal Control QC Valid; Binax Lot number: 9864; Binax Now Covid-19 Ag Negative (Negative)
== END 2021-11-05 14:36 | disposition home or self-care (01) ==
LOC: HO.LAB 14:35
PROVIDERS: Visit Provider Internal Medicine
DX: Z20.822 Contact with and (suspected) exposure to COVID-19 (principal)
CPT/HCPCS: C9803

== ENCOUNTER 2021-11-22 11:15 | Outpatient (REF) | payer OTHER, SELFPAY ==
[2021-11-22 14:08] LABS: Alanine Aminotransferase 56 U/L (0-31); Albumin Level 4.4 g/dL (3.5-5.0); Alkaline Phosphatase 92 U/L (39-117); Anion Gap 14 (12-20); Aspartate Amino Transferase 53 U/L (5-31); Bilirubin Total 0.8 mg/dL (0.0-1.0); Blood Urea Nitrogen 10 mg/dL (9-16); Calcium 9.5 mg/dL (8.4-10.2); Carbon Dioxide 25 mmol/L (22-29); Chloride 103 mmol/L (96-108); Cholesterol 213 mg/dL; Estimated Glomerular Filt Rate > 60; Glucose Fasting 192 mg/dL (60-99); HDL Cholesterol 40 mg/dL; LDL Cholesterol Calculated 136 mg/dl; Potassium 4.3 mmol/L (3.3-5.1); Sodium 138 mmol/L (135-145); Total Protein 8.4 g/dL (6.5-8.0); Triglycerides 186 mg/dL
[2021-11-22 14:22] LABS: Vitamin D 25-OH Total 11.4 ng/mL (>30)
[2021-11-22 14:27] LABS: Creatinine Urine 215.86 mg/dL; Microalbum/Creatinine Ratio Ur 18.9 ug/mg cr
== END 2021-11-22 11:16 | disposition home or self-care (01) ==
LOC: HO.HMGCLDS 11:15
PROVIDERS: Visit Provider Internal Medicine
DX: Z00.01 Encounter for general adult medical examination with abnormal findings (principal); E11.65 Type 2 diabetes mellitus with hyperglycemia; E66.9 Obesity, unspecified; E78.5 Hyperlipidemia, unspecified
CPT/HCPCS: 36415; 80053; 80061; 82043; 82306

== ENCOUNTER 2021-12-03 09:19 | Outpatient (REF) | payer OTHER, SELFPAY ==
[2021-12-04 14:24] LABS: BV Int Neg Control Negative (Negative); BV Int Pos Control Positive (Positive)
[2021-12-04 18:31] LABS: CT PCR NOT DETECTED (Not Detect.); NG PCR NOT DETECTED (Not Detect.)
== END 2021-12-03 09:20 | disposition home or self-care (01) ==
LOC: HO.LAB 09:19
PROVIDERS: PCP Internal Medicine; Visit Provider Advanced Practice Midwife
DX: Z01.411 Encounter for gynecological examination (general) (routine) with abnormal findings (principal); N89.8 Other specified noninflammatory disorders of vagina; N94.10 Unspecified dyspareunia; Z20.2 Contact with and (suspected) exposure to infections with a predominantly sexual mode of transmission
CPT/HCPCS: 87480; 87491; 87510; 87591; 87660

== ENCOUNTER 2022-01-20 08:36 | Outpatient (REF) | payer OTHER, SELFPAY ==
[2022-01-20 11:10] LABS: Thyroid Stimulating Hormone 2.59 uIU/mL (0.32-4.0)
[2022-01-20 18:45] LABS: CT PCR NOT DETECTED (Not Detect.); NG PCR NOT DETECTED (Not Detect.)
[2022-01-21 11:15] LABS: BV Int Neg Control Negative (Negative); BV Int Pos Control Positive (Positive)
== END 2022-01-20 08:37 | disposition home or self-care (01) ==
LOC: HO.LAB 08:36
PROVIDERS: PCP Internal Medicine; Visit Provider Advanced Practice Midwife
DX: Z11.3 Encounter for screening for infections with a predominantly sexual mode of transmission (principal); R10.2 Pelvic and perineal pain; N95.1 Menopausal and female climacteric states; R39.9 Unspecified symptoms and signs involving the genitourinary system; R23.2 Flushing
CPT/HCPCS: 36415; 81003; 81025; 84443; 87480; 87491; 87510; 87591; 87660; 99212

== ENCOUNTER 2022-02-14 09:13 | Outpatient (REF) | payer OTHER, SELFPAY ==
[2022-02-14 12:38] LABS: Alanine Aminotransferase 66 U/L (0-31); Aspartate Amino Transferase 37 U/L (5-31); Cholesterol 220 mg/dL; HDL Cholesterol 45 mg/dL; LDL Cholesterol Calculated 133 mg/dl; Triglycerides 213 mg/dL
[2022-02-14 12:39] LABS: Vitamin D 25-OH Total 31.8 ng/mL (>30)
== END 2022-02-14 09:14 | disposition home or self-care (01) ==
LOC: HO.HMGCLDS 09:13
PROVIDERS: Visit Provider Internal Medicine
DX: E11.65 Type 2 diabetes mellitus with hyperglycemia (principal); E55.9 Vitamin D deficiency, unspecified; E66.9 Obesity, unspecified; E78.5 Hyperlipidemia, unspecified; N76.0 Acute vaginitis
CPT/HCPCS: 36415; 80061; 82306; 84450; 84460

== ENCOUNTER 2022-09-02 06:42 | Outpatient (REF) | payer OTHER, SELFPAY ==
[2022-09-02 12:30] LABS: Creatinine Urine 66.19 mg/dL
[2022-09-02 12:33] LABS: Alanine Aminotransferase 37 U/L (0-31); Anion Gap 18 (12-20); Aspartate Amino Transferase 37 U/L (5-31); Blood Urea Nitrogen 21 mg/dL (9-16); Calcium 9.2 mg/dL (8.4-10.2); Carbon Dioxide 22 mmol/L (22-29); Chloride 105 mmol/L (96-108); Cholesterol 123 mg/dL; Estimated Glomerular Filt Rate > 60; Glucose Fasting 171 mg/dL (60-99); HDL Cholesterol 41 mg/dL; LDL Cholesterol Calculated 57 mg/dl; Potassium 4.4 mmol/L (3.3-5.1); Sodium 141 mmol/L (135-145); Triglycerides 127 mg/dL
[2022-09-02 12:53] LABS: Estimated Average Glucose 166 mg/dL; Hemoglobin A1c % 7.4 %
== END 2022-09-02 06:43 | disposition home or self-care (01) ==
LOC: HO.HMGCLDS 06:42
PROVIDERS: PCP Internal Medicine; Visit Provider Internal Medicine
DX: E11.65 Type 2 diabetes mellitus with hyperglycemia (principal); E66.9 Obesity, unspecified; E78.5 Hyperlipidemia, unspecified
CPT/HCPCS: 36415; 80048; 80061; 82043; 83036; 84450; 84460

== ENCOUNTER 2022-11-15 11:27 | Outpatient (REF) | payer OTHER, SELFPAY ==
--- NOTE | ~2022-11-15 | MM_ITS ---
EXAMINATION: MM SCREENING DIGITAL BREAST TOMOSYNTHESIS, BILATERAL CLINICAL INFORMATION: Screening. Asymptomatic. The lifetime risk of breast cancer based on the Tyrer-Cuzick Model is 10.2%. COMPARISON: Mammography: August 27, 2018 and studies dating back to April 08, 2016 TECHNIQUE: Digital breast tomosynthesis is performed in both the craniocaudal and mediolateral oblique views along with computer-aided detection (CAD). Synthesized 2D images are generated from the tomosynthesis. FINDINGS: There are scattered areas of fibroglandular density (ACR BI-RADS breast composition Category b). There are no significant masses, abnormal calcifications, or other abnormalities. MM/MM tomosynthesis screening BI IMPRESSION: No significant changes ASSESSMENT: BI-RADS 1: Negative RECOMMENDATION: Routine annual mammography screening. This patient's information was entered into a reminder system with a target due date for their next mammogram.
== END 2022-11-15 11:28 | disposition home or self-care (01) ==
LOC: HO.MAMMO 11:27
PROVIDERS: PCP Internal Medicine; Visit Provider Internal Medicine
DX: Z12.31 Encounter for screening mammogram for malignant neoplasm of breast (principal)
CPT/HCPCS: 77063; 77067

== ENCOUNTER → 2022-12-23 11:04 | Outpatient (BNVA) | payer OTHER, SELFPAY | PROVIDERS: PCP Internal Medicine; Visit Provider Nurse Practitioner Family | DX: R74.8 Abnormal levels of other serum enzymes (principal); K92.2 Gastrointestinal hemorrhage, unspecified; R10.9 Unspecified abdominal pain; Z12.11 Encounter for screening for malignant neoplasm of colon | CPT/HCPCS: 99202 ==

== ENCOUNTER 2023-01-09 08:52 | Outpatient (REF) | payer OTHER, SELFPAY ==
[2023-01-09 12:41] LABS: Alanine Aminotransferase 19 U/L (0-31); Albumin Level 4.5 g/dL (3.5-5.0); Alkaline Phosphatase 65 U/L (39-117); Aspartate Amino Transferase 15 U/L (5-31); Bilirubin Direct 0.2 mg/dL (0.0-0.5); Bilirubin Total 0.7 mg/dL (0.0-1.0); Iron 70 mcg/dL (30-160); Percent Iron Saturation 26 % (15-50); Total Iron Binding Capacity 274 mcg/dL (228-428); Total Protein 7.5 g/dL (6.5-8.0); Unsaturated Iron Binding 204 ug/dL
[2023-01-09 12:59] LABS: Ferritin 80 ng/mL (10-250)
== END 2023-01-09 08:53 | disposition home or self-care (01) ==
LOC: HO.HMGCLDS 08:52
PROVIDERS: Nurse Practitioner Family; PCP Internal Medicine; Visit Provider Internal Medicine
DX: R10.9 Unspecified abdominal pain (principal); K92.2 Gastrointestinal hemorrhage, unspecified; R74.8 Abnormal levels of other serum enzymes
CPT/HCPCS: 36415; 80076; 82728; 83540

== ENCOUNTER 2023-01-17 10:22 | Outpatient (REF) | payer OTHER, SELFPAY ==
[2023-01-17 12:21] LABS: Estimated Average Glucose 146 mg/dL; Hemoglobin A1c % 6.7 %
[2023-01-17 14:00] LABS: Alanine Aminotransferase 26 U/L (0-31); Anion Gap 13 (12-20); Aspartate Amino Transferase 21 U/L (5-31); Blood Urea Nitrogen 11 mg/dL (9-16); Calcium 8.8 mg/dL (8.4-10.2); Carbon Dioxide 22 mmol/L (22-29); Chloride 107 mmol/L (96-108); Cholesterol 146 mg/dL; Estimated Glomerular Filt Rate > 60; Glucose Fasting 141 mg/dL (60-99); HDL Cholesterol 41 mg/dL; LDL Cholesterol Calculated 79 mg/dl; Potassium 4.1 mmol/L (3.3-5.1); Sodium 138 mmol/L (135-145); Triglycerides 134 mg/dL
== END 2023-01-17 10:23 | disposition home or self-care (01) ==
LOC: HO.HMGCLDS 10:22
PROVIDERS: PCP Internal Medicine; Visit Provider Internal Medicine
DX: E66.9 Obesity, unspecified (principal); E11.65 Type 2 diabetes mellitus with hyperglycemia; E78.5 Hyperlipidemia, unspecified
CPT/HCPCS: 36415; 80048; 80061; 83036; 84450; 84460

== ENCOUNTER → 2023-01-27 11:09 | Outpatient (BNVA) | payer OTHER, SELFPAY | PROVIDERS: PCP Internal Medicine; Visit Provider Nurse Practitioner Family | DX: R19.7 Diarrhea, unspecified (principal); E55.9 Vitamin D deficiency, unspecified | CPT/HCPCS: 99212 ==

== ENCOUNTER 2023-05-04 06:07 | Day surgery (SDC) | payer OTHER, SELFPAY ==
[2023-05-02 14:11] VITALS: BMI 34.7
--- NOTE | 2023-05-04 06:07 | MHC.SHP ---
Pre-Procedural Eval Section A Date of Service: 05/04/23 Section B Chief Complaint: Encounter for screening for malignant neoplasm Relevant Family History (Specify if Yes): No Relevant Social History: None Present Medications: see Short Stay Collaborative assessment Medical History: Significant History (Bipolar disorder Dyslipidemia Obesity Pneumothorax Psoriasis PTSD (post-traumatic stress disorder) Type 2 diabetes mellitus without complication, with no history of insulin use) History of Previous Operations: Relevant previous surgery/procedure and date(s) (H/O LEEP History of removal of cyst History of tooth extraction Remove/insert IUD) Allergies: Allergies Allergy/AdvReac Type Severity Reaction Status Date / Time trazodone AdvReac Unknown Weakness Verified 01/27/23 11:24 Review of Systems Sugical H&P ROS: Negative: Constitution, Cardiovascular, Respiratory, Neurological, Psychiatric, Hem-Onc, Allergic/Immunologic, Gastrointestinal, Genitourinary, Musculoskeletal, Integumentary, Endocrine and Eyes/Ears/Nose/Throat Exam Surgical H&P Exam: Normal: HEENT, Normal: Heart, Normal: Lungs, Normal: Extremities, Normal: Abdomen and Normal: Neurological and Significant Findings: Skin (psoriasis) Plan Diagnosis/Plan: Unchanged I have reviewed the history and physical and performed a pertinent physical examination on my patient. No changes have occurred unless specified. Time Spent With Patient Time: Total time managing care of this patient today ____ minutes.
[2023-05-04 06:35] VITALS: BP 129/85; PULSE 78; RESP 16; TEMP 36.6; O2SAT 97
[2023-05-04 06:36] LABS: UPreg QC Valid YES; Urine Pregnancy NEGATIVE (NEGATIVE)
[2023-05-04 06:45] LABS: Glucose, Whole Blood 125 mg/dL (60-115)
[2023-05-04] MEDS: Lactated Ringers 1,000 ML 100 ML IVCONT (06:48)
[2023-05-04] MEDS: Sodium Phosphate,Mono-Dibasic 133 ML ENEMA PR ×2 (06:53→07:03)
--- NOTE | 2023-05-04 06:55 | PC.NURSE ---
left lateral position for fleet enema. aware of plan. ant well.
--- NOTE | 2023-05-04 07:00 | PC.NURSE ---
output dark yellow unable to see through toilet water. second fleet to be performed.
--- NOTE | 2023-05-04 07:04 | PC.NURSE ---
nat left lateral fleet enema procedure.
--- NOTE | 2023-05-04 07:15 | PC.NURSE ---
yellow output less dark and no solids.
--- NOTE | 2023-05-04 07:23 | HO.ANESPROP2 ---
[facility] Active Problems Active Problems: All Active Problems (Updated 05/02/23 @ 14:09 by Nani Yanes RN) Breast cancer screening (Acute) Obesity (BMI 30-39.9) (Acute) Abscessed tooth (Acute) Perimenopause (Acute) Hot flashes (Acute) Type 2 diabetes mellitus without complication, with no history of insulin use (Acute) PTSD (post-traumatic stress disorder) (Acute) Bipolar disorder (Acute) Psoriasis (Acute) Dyslipidemia (Acute) Past Medical History Medical History (Updated 05/02/23 @ 14:09 by Nani Yanes RN) Bipolar disorder Dyslipidemia Obesity Pneumothorax Psoriasis PTSD (post-traumatic stress disorder) Type 2 diabetes mellitus without complication, with no history of insulin use Family History Family History Father Asthma Emphysema lung Diabetes mellitus Mother History of heart attack Cervical cancer Iron deficiency CVD (cardiovascular disease) Paternal Grandfather History of heart attack Daughter No problems noted. Son No problems noted. Family history of problems with anesthesia: No Surgical History Surgical History H/O LEEP History of removal of cyst History of tooth extraction Remove/insert IUD History of Problems with Anesthesia: No Social History Social History Household Members: Other Household Members Other:: Brother Housing: House Do you presently have visiting nurse or other home services: No Alcohol intake: former Patient Tobacco Use Status: Never used Tobacco e-Cigarette/Vaping Use: Never Used Second Hand Smoke Exposure: No Advance Directives: No Advance Directives Information Provided: Yes service: No Current occupational status: unemployed Sexual orientation: Straight/Heterosexual Cognitive needs: No Hearing needs: No Vision needs: No Meds Allergies Allergy/AdvReac Type Severity Reaction Status Date / Time trazodone AdvReac Unknown Weakness Verified 01/27/23 11:24 Active Medications: Current Medications Lactated Ringer's (Lr) 1,000 mls @ 100 mls/hr IVCONT .Q10H WAI Last Admin: 05/04/23 06:48 Dose: 100 mls/hr Home Medications Medication Instructions Recorded Confirmed Last Taken Type quetiapine 150 mg tablet,extended 150 mg PO BEDTIME 02/14/22 05/02/23 Unknown History release 24 hr sertraline 100 mg tablet 100 mg PO DAILY 02/14/22 05/02/23 Unknown History Exam Exam Date and Time: May 04, [id number] Height,Weight and Vital Signs: Height 5 ft 4 in Weight 91.626 kg Last Vital Signs Temp 97.9 F 05/04/23 06:35 Pulse 78 05/04/23 06:35 Resp 16 05/04/23 06:35 BP 129/85 05/04/23 06:35 Pulse Ox 97 05/04/23 06:35 O2 Del Method Room Air 05/04/23 06:35 Pertinent Lab Results Pertinent Lab Results: Laboratory Tests 05/04/23 05/04/23 06:11 06:41 POC Glucose 125 H Urine Test NEGATIVE Airway Mallampati Class: II TM Dist: >3cm Neck ROM: Full Assessment and Plan Assessment Anesthesia Assessment: Anesthesia Plan Discussed and Chart Reviewed Final Anesthetic Review Family History of Problems with Anesthesia: No History of Problems with Anesthesia: No NPO: Yes ASA Class: III Final Preanesthetic Review: No Changes in Pt Med Stat, Meds/Allgs Chart Reviewed, Consent Obtained/Reviewed and Anes Risks/Benef Reviewed Patient Risk: Intermediate Procedure Risk: Low Anesthetic Plan Anesthetic Plan: MAC: Disposition: Standard PACU
--- NOTE | 2023-05-04 07:58 | P.OP_ITS ---
Operative Note Operative Note Date of Service: 05/04/23 Narrative: Operative Information Procedure Description: Colonoscopy Indication: screening Anesthesia: MAC COLONOSCOPY Instrument: Olympus variable stiffness pediatric scope 190L Colonoscopy Monitoring: Vital signs and clinical assessment, continuous EKG monitoring, Pulse oximetry, Carbon Dioxide monitoring and blood pressure monitoring were done throughout the procedure. Colon withdrawal time was 11 minutes. Procedure: The patient was placed in the left lateral decubitis position and pre-procedure medications were administered. After a digital rectal examination of the ano-rectum, the video colonoscope was inserted into the rectum and advanced through the colon to the cecum/TI. The colonoscope was slowly withdrawn in a retrograde panoramic fashion and the colon mucosa was carefully examined including a retroflexed view of the rectum. Findings and interventions are described below. Procedure Difficulty: easy Findings: Terminal Ileum-normal Cecum:normal Ascending Colon: normal Transverse Colon -normal Descending Colon:normal Sigmoid Colon: normal Rectum: Retroflexion with small internal hemorrhoids, grade I Anorectum - normal Colon preparation: [place] Bowel Preparation Scale Right colon; 2 Transverse colon: 3 Left colon; 3 (0 = Unprepared colon segment with mucosa not seen due to solid stool that cannot be cleared. 1 = Portion of mucosa of the colon segment seen, but other areas of the colon segment not well seen due to staining, residual stool and/or opaque liquid. 2 = Minor amount of residual staining, small fragments of stool and/or opaque liquid, but mucosa of colon segment seen well. 3 = Entire mucosa of colon segment seen well with no residual staining, small fragments of stool or opaque liquid) Impression and Post Procedure Diagnosis: internal hemorrhoids Plan: High fiber diet leaflet Avoid straining at stool, epsom salts and sitz bath, anusol supps or cream Repeat Colonoscopy in 10 years or earlier if clinically indicated Above findings were reviewed with the patient and relevant handouts were provided if indicated.
[2023-05-04 08:02] VITALS: BP 100/49; PULSE 84; RESP 18; TEMP 36.4; O2SAT 98
[2023-05-04 08:17] VITALS: BP 124/71; PULSE 84; RESP 18; TEMP 36.4; O2SAT 96
== END 2023-05-04 08:52 | disposition home or self-care (01) ==
PROVIDERS: Anesthesiology; PCP Internal Medicine; Visit Provider Internal Medicine Gastroenterology
PROC: 0DJD8ZZ Inspection of Lower Intestinal Tract, Via Natural or Artificial Opening Endoscopic (ICD-10-PCS; CPT 45378; principal; 2023-05-04 07:30)
DX: Z12.11 Encounter for screening for malignant neoplasm of colon (principal); K64.0 First degree hemorrhoids; E11.65 Type 2 diabetes mellitus with hyperglycemia; E78.5 Hyperlipidemia, unspecified; F31.9 Bipolar disorder, unspecified; F43.10 Post-traumatic stress disorder, unspecified; L40.9 Psoriasis, unspecified; E66.9 Obesity, unspecified; Z68.33 Body mass index [BMI] 33.0-33.9, adult; Z79.899 Other long term (current) drug therapy; Z88.8 Allergy status to other drugs, medicaments and biological substances
CPT/HCPCS: 45378; 81025; 82947

== ENCOUNTER → 2023-05-04 06:07 | Outpatient (BNV) | payer OTHER, SELFPAY | PROVIDERS: PCP Internal Medicine; Visit Provider Internal Medicine Gastroenterology | DX: Z12.11 Encounter for screening for malignant neoplasm of colon (principal) | CPT/HCPCS: 45378 ==

== ENCOUNTER 2023-05-17 07:57 | Outpatient (AMB) | payer OTHER, SELFPAY ==
[2023-05-17 08:03] VITALS: BP 136/71; PULSE 78; BMI 35.5
--- NOTE | 2023-05-17 08:03 | A.OFFVIS_ITS ---
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 Patient reports occasional postprandial abdominal bloating without diarrhea or constipation. History of sleep apnea not on CPAP anymore. Patient is not on any anticoagulation medication. Reports no issues with anesthesia in the past. Discussed with patient the importance good bowel prep the for the procedure. What to expect before during and after procedure discussed patient. Stressed the importance of clear liquid diet day before procedure. I will see her after the procedure, sooner on as needed basis. Patient is agreeable to this plan and verbalizes understanding of instructions. She was given the opportunity to ask questions and all questions answered ? Thank you for allowing me to participate in her care Plan Orders Orders Vitamin B12 and Folate 01/27/23 R19.7 Vitamin D 25-OH (D2 and D3) 01/27/23 E55.9 COLONOSCOPY Findings: Terminal Ileum-normal Cecum:normal Ascending Colon: normal Transverse Colon -normal Descending Colon:normal Sigmoid Colon:? normal Rectum: Retroflexion with small internal hemorrhoids, grade I Anorectum - normal Colon preparation: [place] Bowel Preparation Scale Right colon; 2 Transverse colon: 3 Left colon; 3 (0 = Unprepared colon segment with mucosa not seen due to solid stool that cannot be cleared. 1 = Portion of mucosa of the colon segment seen, but other areas of the colon segment not well seen due to staining, residual stool and/or opaque liquid. 2 = Minor amount of residual staining, small fragments of stool and/or opaque liquid, but mucosa of colon segment seen well. 3 = Entire mucosa of colon segment seen well with no residual staining, small fragments of stool or opaque liquid) Impression and Post Procedure Diagnosis: internal hemorrhoids Plan: High fiber diet leaflet Avoid straining at stool, epsom salts and sitz bath, anusol supps or cream Repeat Colonoscopy in 10 years or earlier if clinically indicated TODAY'S VISIT Patient is here today for and to discuss results. Patient denies any ill effects the prep anesthesia or procedure itself. Patient states that she is feeling well. Moving her bowels without any issues. Denies any GI concerning symptoms. Patient denies any melena, hematochezia unintentional weight loss or ribbon like stools. Patient denies any dyspepsia, dysphagia or odynophagia colonoscopy results discussed with patient. PFSH Medical History Bipolar disorder Dyslipidemia Obesity Pneumothorax Psoriasis PTSD (post-traumatic stress disorder) Type 2 diabetes mellitus without complication, with no history of insulin use Surgical History H/O LEEP History of removal of cyst History of tooth extraction Hx of colonoscopy Remove/insert IUD Family History Father Asthma Emphysema lung Diabetes mellitus Mother History of heart attack Cervical cancer Iron deficiency CVD (cardiovascular disease) Paternal Grandfather History of heart attack Daughter No problems noted. Son No problems noted. Social History Household Members: Other Household Members Other:: Brother Housing: House Do you presently have visiting nurse or other home services: No Alcohol intake: former Patient Tobacco Use Status: Never used Tobacco e-Cigarette/Vaping Use: Never Used Second Hand Smoke Exposure: No service: No Current occupational status: unemployed Sexual orientation: Straight/Heterosexual Cognitive needs: No Hearing needs: No Vision needs: No Female Reproductive History Menstrual Age of Menarche: 14 Review of Systems Const Denies weight gain and Denies weight loss ENT Reports no additional complaints, Denies dysphagia and Denies odynophagia Card Reports no additional complaints Resp Reports no additional complaints GI Denies abdominal pain, Denies belching, Denies melena, Denies bloating, Denies change in bowel habits, Denies dysphagia, Denies excessive flatus, Denies dyspepsia, Denies heartburn, Denies diarrhea, Denies loose stools, Denies nausea, Denies odynophagia and Denies vomiting Musc Reports no additional complaints Neuro Reports no additional complaints Psych Reports no additional complaints Endo Reports no additional complaints Physical Exam Vital Signs: BMI result Body Mass Index 35.5 Const General: healthy appearing, no acute distress and well developed Nutritional Appearance: obese Orientation/consciousness: patient oriented x3 HEENT Head: Yes normal to inspection, Yes normocephalic and Yes atraumatic Face and sinus: Yes normal facial exam Mouth: Normal oral and palatal mucosa present Throat: Yes posterior oropharynx normal, Yes tonsils normal and Yes uvula midline Eyes General: appearance normal, both eyes and all related structures Neck Neck: Yes normal visual inspection, Yes full ROM and Yes trachea midline Thyroid: Thyroid normal Resp Effort & Inspection: normal respiratory effort, able to speak in complete sentences, no tracheal deviation and symmetric chest movement Auscultation: clear to auscultation bilaterally Cardio Rate: regular rate Heart sounds: S1 normal heart sound present and S2 normal heart sound present GI Inspection: Yes normal to inspection, No distended and Yes obesity Palpation (GI): Soft to palpation, not firm, nontender and No hepatosplenomegaly present Auscultation: normal bowel sounds General: Yes no CVA tenderness Back/Spine/Pelvis Back: no CVA tenderness Skin General skin exam: elasticity normal, turgor normal and dry skin Neuro General: patient oriented x3 Psych Appearance: grossly normal Mental Status: mental status grossly normal Speech and movement: Normal speech and movement present Affect: normal affect Assessment & Plan Assessment & Plan (1) Status post colonoscopy: Code(s): Z98.890 - Other specified postprocedural states Plan: Colonoscopy will be repeated in 10 years. No polyps found. Internal hemorrhoid s. Patient reports no rectal pain or bleeding. Patient denies any ill effects from the prep, anesthesia or procedure itself. High-fiber diet discussed with patient. Patient will follow-up with us on as needed basis. She is agreeable to plan of care and verbalizes understanding of instructions. She was given the opportunity to ask questions and all questions answered. Thank you allowing me to participate in her care Coding Level of Care Code Est Pt Level 3 (74813) Diagnoses Status post colonoscopy Z98.890 Time Spent (min) 25 Comment 15 minutes spent with patient and additional 10 minutes spent reviewing her records
== END 2023-05-17 08:21 | disposition home or self-care (01) ==
PROVIDERS: PCP Internal Medicine; Visit Provider Nurse Practitioner Family
DX: Z98.890 Other specified postprocedural states (principal)
CPT/HCPCS: 99213

== ENCOUNTER → 2023-05-17 07:57 | Outpatient (BNVA) | payer OTHER, SELFPAY | PROVIDERS: PCP Internal Medicine; Visit Provider Nurse Practitioner Family | DX: Z98.890 Other specified postprocedural states (principal) | CPT/HCPCS: 99212 ==

== ENCOUNTER 2023-06-05 08:43 | Outpatient (AMB) | payer OTHER, SELFPAY ==
--- NOTE | 2023-06-05 09:09 | MHC.OFFWIV ---
Intake Vital Signs 06/05/23 09:13 Weight 202 lb BP 130/90 H Blood Pressure Location Lt brachial Position Sitting Pulse 80 Pulse Source Pulse Oximeter Temp 98 F Temp Source Oral Pulse Oximetry (%) 98 Oxygen Delivery Method Room Air Intake Visit Reasons: EP ?rash on both legs and arms (lobby) Intake Note: Patient here because she has been getting these rashes for about 1 month. she states she has been also having a sore throat for about a week, she has also states that she thought she felt like her right side of neck was swollen. Patient Tobacco Use Status: Never used Tobacco Allergies trazodone Adverse Reaction (Unknown, Verified 06/05/23 09:54) Weakness Medication List - Last Reconciled 06/05/23 by Kieran Mead MD [email or web address] (Jardiance) 25 mg PO QAM metformin 1,000 mg PO BIDWMEAL 3 months quetiapine ER 150 mg PO BEDTIME rosuvastatin 5 mg PO DAILY Do you need a note to return to daycare/school/sports/work: No HPI EP ?rash on both legs and arms (lobby) HPI Details 48-year-old female presents to the office for a sick visit. Patient has history of extensive psoriasis. She takes medications and a cream form for it. In addition she has developed a few lesions or rashes in her upper thighs which are itchy. Symptoms are present for the past week or so. Patient is also diabetic. [facility] Medical History Bipolar disorder Dyslipidemia Obesity Pneumothorax Psoriasis PTSD (post-traumatic stress disorder) Type 2 diabetes mellitus without complication, with no history of insulin use Surgical History H/O LEEP History of removal of cyst History of tooth extraction Hx of colonoscopy Remove/insert IUD Family History Father Asthma Emphysema lung Diabetes mellitus Mother History of heart attack Cervical cancer Iron deficiency CVD (cardiovascular disease) Paternal Grandfather History of heart attack Daughter No problems noted. Son No problems noted. Social History Household Members: Other Household Members Other:: Brother Housing: House Do you presently have visiting nurse or other home services: No Alcohol intake: former Patient Tobacco Use Status: Never used Tobacco e-Cigarette/Vaping Use: Never Used Second Hand Smoke Exposure: No service: No Current occupational status: unemployed Sexual orientation: Straight/Heterosexual Cognitive needs: No Hearing needs: No Vision needs: No Female Reproductive History Menstrual Age of Menarche: 14 Physical Exam Vital Signs: Last Vital Signs Temp 98 F 06/05/23 09:13 Pulse 80 06/05/23 09:13 BP 130/90 H 06/05/23 09:13 Pulse Ox 98 06/05/23 09:13 Oxygen Delivery Method Room Air 06/05/23 09:13 Skin Other: Established sore eyes is in her elbows knees and ankles. In addition there are new papules with scratch roblero in her thigh and lower leg. Assessment & Plan Assessment & Plan (1) Rash: Code(s): R21 - Rash and other nonspecific skin eruption Plan: Most likely allergic in nature. Tapering dose of prednisone given. Coding Level of Care Code Est Pt Level 4 (21936) Diagnoses Rash R21
[2023-06-05 09:13] VITALS: BP 130/90; PULSE 80; TEMP 36.6; O2SAT 98
== END 2023-06-05 10:18 | disposition home or self-care (01) ==
PROVIDERS: PCP Internal Medicine; Visit Provider Internal Medicine
DX: R21 Rash and other nonspecific skin eruption (principal)
CPT/HCPCS: 99214

== ENCOUNTER 2023-06-05 09:53 | Outpatient (REF) | payer OTHER, SELFPAY ==
[2023-06-05 12:25] LABS: Estimated Average Glucose 183 mg/dL
[2023-06-05 13:11] LABS: Cholesterol 175 mg/dL; Glucose Fasting 187 mg/dL (60-99); HDL Cholesterol 40 mg/dL; LDL Cholesterol Calculated 92 mg/dl; Triglycerides 218 mg/dL
[2023-06-06 02:48] LABS: Creatinine Urine 47.64 mg/dL; Microalbumin Urine < 5.0 mg/L
== END 2023-06-05 09:54 | disposition home or self-care (01) ==
LOC: HO.HMGCLDS 09:53
PROVIDERS: PCP Internal Medicine; Visit Provider Internal Medicine
DX: E11.9 Type 2 diabetes mellitus without complications (principal); E78.5 Hyperlipidemia, unspecified
CPT/HCPCS: 36415; 80061; 82043; 82947; 83036

== ENCOUNTER 2023-08-15 12:59 | Outpatient (AMB) | payer OTHER, SELFPAY ==
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
[2023-08-15 13:24] VITALS: BP 140/96; PULSE 85; O2SAT 99; BMI 34.9
== END 2023-08-15 14:34 | disposition home or self-care (01) ==
PROVIDERS: PCP Internal Medicine; Visit Provider Internal Medicine
DX: Z23 Encounter for immunization (principal)
CPT/HCPCS: 90471; 90686; 99214

== ENCOUNTER 2023-11-16 11:28 | Outpatient (REF) | payer OTHER, SELFPAY | END 2023-11-16 11:29 | disposition home or self-care (01) | LOC: HO.MAMMO 11:28 | PROVIDERS: PCP Internal Medicine; Visit Provider Internal Medicine | DX: Z12.31 Encounter for screening mammogram for malignant neoplasm of breast (principal) | CPT/HCPCS: 77063; 77067 ==

== ENCOUNTER → 2023-11-16 12:00 | Outpatient (BNV) | payer OTHER, SELFPAY | PROVIDERS: PCP Internal Medicine; Visit Provider Radiology Diagnostic Radiology | DX: Z12.31 Encounter for screening mammogram for malignant neoplasm of breast (principal) | CPT/HCPCS: 77063; 77067 ==

== ENCOUNTER 2023-11-21 08:53 | Outpatient (AMB) | payer OTHER, SELFPAY ==
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
[2023-11-21 09:47] VITALS: BP 112/74; PULSE 78; O2SAT 97; BMI 34.3
== END 2023-11-21 10:35 | disposition home or self-care (01) ==
PROVIDERS: PCP Internal Medicine; Visit Provider Internal Medicine
DX: E11.9 Type 2 diabetes mellitus without complications (principal)
CPT/HCPCS: 83036; 99396

== ENCOUNTER 2023-11-21 10:35 | Outpatient (REF) | payer OTHER, SELFPAY ==
[2023-11-21 14:02] LABS: Alanine Aminotransferase 40 U/L (0-31); Anion Gap 13 (12-20); Aspartate Amino Transferase 29 U/L (5-31); Blood Urea Nitrogen 12 mg/dL (9-16); Calcium 9.5 mg/dL (8.4-10.2); Carbon Dioxide 24 mmol/L (22-29); Chloride 105 mmol/L (96-108); Cholesterol 131 mg/dL (<200); Estimated Glomerular Filt Rate > 60; Glucose Fasting 163 mg/dL (60-99); HDL Cholesterol 39 mg/dL (>40); LDL Cholesterol Calculated 60 mg/dL (<100); Potassium 4.1 mmol/L (3.3-5.1); Sodium 138 mmol/L (135-145); Triglycerides 164 mg/dL (<150)
[2023-11-21 14:06] LABS: Creatinine Urine 60.98 mg/dL; Microalbum/Creatinine Ratio Ur 19.6 ug/mg cr (<30)
[2023-11-21 14:11] LABS: Vitamin D 25-OH Total 55.9 ng/mL (>30)
== END 2023-11-21 10:36 | disposition home or self-care (01) ==
LOC: HO.HMGCLDS 10:35
PROVIDERS: PCP Internal Medicine; Visit Provider Internal Medicine
DX: E11.65 Type 2 diabetes mellitus with hyperglycemia (principal); E66.9 Obesity, unspecified; E78.5 Hyperlipidemia, unspecified
CPT/HCPCS: 36415; 80048; 80061; 82043; 82306; 82570; 84450; 84460

== ENCOUNTER 2024-01-17 13:01 | Outpatient (AMB) | payer OTHER, SELFPAY ==
[2024-01-17 13:12] VITALS: BP 100/68; BMI 33.6
--- NOTE | 2024-01-17 13:12 | MHC.OFFVIS ---
Intake Vital Signs 01/17/24 13:12 Height 5 ft 4 in Weight 196 lb BMI 33.6 BP 100/68 Intake Visit Reasons: AUB Intake Note: Has had her period every other week for the last 5 weeks and she feel like its going to start again soon. Clipping Marker Required: No Information Interpreted: non-clinical & clinical Affiliate Manager: Affiliate Manager Present (Mehrdad) Allergies trazodone Adverse Reaction (Unknown, Verified 01/17/24 13:16) Weakness Medication List - Last Reconciled 01/17/24 by Yeimy Weeks CNM empagliflozin (Jardiance) 25 mg PO QAM metformin 1,000 mg PO BIDWMEAL 3 months rosuvastatin 5 mg PO DAILY tapinarof 1% (Vtama) appl topical Is last menstrual period known: Yes Last menstrual period: 01/08/24 HPI AUB HPI Details Patient has a history of normal regular cycles. But for the last 5 weeks she has had 3 different periods she had period in October that was normal with a normal spacing and cycle after that then in the beginning of November then 5 days later in mid November and then again in December she had 3 periods a few days apart from each other that all felt like normal periods. She has had a history of diabetes for about 8 years she is trying to get her diabetes under better control she has lost about 10 lb in the last 6 months that she is feels very good about she is taking Jardiance and metformin. She does not have an blood sugar sensor but would be interested in 1. She has a follow-up appointment with her primary coming up next month and she has an annual exam with Luzmaria coming up at the beginning of February as well. She thought this was all just because of her jason menopausal state but then when the 1 came she made this appointment. In the past she was using pills for control then she used Depo-Provera and then she used the Mirena but she had it in for a number of years and her hemochromatosis was affected by not having the menses so she had to take it out. She has not been sexually active for the last 5 years so she has not needed anything. [facility] Medical History (Updated 01/17/24 @ 14:26 by Yeimy Weeks CNM) Diabetes mellitus with hyperglycemia, without long-term current use of insulin Pneumothorax Type 2 diabetes mellitus without complication, with no history of insulin use PTSD (post-traumatic stress disorder) Psoriasis Obesity Dyslipidemia Surgical History Hx of colonoscopy History of removal of cyst History of tooth extraction Remove/insert IUD H/O LEEP Family History Father Asthma Emphysema lung Diabetes mellitus Mother History of heart attack Cervical cancer Iron deficiency CVD (cardiovascular disease) Paternal Grandfather History of heart attack Daughter No problems noted. Son No problems noted. Social History Household Members: Other Household Members Other:: Brother Housing: House Do you presently have visiting nurse or other home services: No Alcohol intake: former Patient Tobacco Use Status: Never used Tobacco e-Cigarette/Vaping Use: Never Used Second Hand Smoke Exposure: No service: No Current occupational status: employed Sexual orientation: Straight/Heterosexual Cognitive needs: No Hearing needs: No Vision needs: Yes Female Reproductive History Menstrual Age of Menarche: 14 Duration of menses: 6-7 days Date of last menstrual period: 01/08/24 control method: none Total pregnancies: 4 Full term: 2 Number of Living Children: 2 Physical Exam Vital Signs: Last Vital Signs BP 100/68 01/17/24 13:12 BMI result Body Mass Index 33.6 Assessment & Plan Assessment & Plan (1) Obesity (BMI 30-39.9): Code(s): E66.9 - Obesity, unspecified (2) Perimenopause: Code(s): N95.1 - Menopausal and female climacteric states (3) History of irregular menstrual bleeding: Comment: Normally has regular monthly cycles. Has had 3 regular periods in the last 5 weeks,(01/17/24) Code(s): Z87.42 - Personal history of other diseases of the female genital tract (4) Hemochromatosis: Code(s): E83.119 - Hemochromatosis, unspecified Plan Discussed the range of possibilities with jason menopausal bleeding patterns this may in fact be normal but it would be nunez to at least check things out and 1st step would be to check with an ultrasound to make sure there is nothing aberrant in her uterus or ovaries I would not be surprised if she did not have some cystic structure show up ovarian nunez that could contribute to the irregular bleeding pattern but we shall see she may in fact end up needing an endometrial biopsy just to double check but since she is premenopausal and the bleeding patterns were normal and like normal menses and not deranged or unusual in character it may or may not be necessary but remains to be seen. Discussed that often Mirena is can be useful to help manage irregular bleeding patterns but she did have difficulty when her iron level built up so much from not having regular monthly bleeds that the ended up being a problem for her. She already has an annual exam with Luzmaria coming up in a few weeks so I am ordering the ultrasound and she will have a follow-up with me but if it is too many appointments and she already sees Luzmaria she may end of reviewing it with Luzmaria. Orders: Orders US pelvic and transvaginal Today E66.9 - Obesity, unspecified, N95.1 - Menopausal and female climacteric states, Z87.42 - Personal history of other diseases of the female genital tract Coding Level of Care Code Est Pt Level 3 (87177) Diagnoses Obesity (BMI 30-39.9) E66.9 Perimenopause N95.1 History of irregular menstrual bleeding Z87.42 Hemochromatosis E83.119
== END 2024-01-17 15:25 | disposition home or self-care (01) ==
LOC: HO.HWSM 13:01
PROVIDERS: PCP Internal Medicine; Visit Provider Advanced Practice Midwife
DX: E66.9 Obesity, unspecified (principal); N95.1 Menopausal and female climacteric states; Z87.42 Personal history of other diseases of the female genital tract; E83.119 Hemochromatosis, unspecified
CPT/HCPCS: 99213

== ENCOUNTER → 2024-01-17 13:01 | Outpatient (BNVA) | payer OTHER, SELFPAY | PROVIDERS: PCP Internal Medicine; Visit Provider Advanced Practice Midwife | DX: N95.1 Menopausal and female climacteric states (principal); E83.119 Hemochromatosis, unspecified; E66.9 Obesity, unspecified; Z68.33 Body mass index [BMI] 33.0-33.9, adult; Z87.42 Personal history of other diseases of the female genital tract | CPT/HCPCS: 99212 ==

== ENCOUNTER 2024-02-19 07:49 | Outpatient (REF) | payer OTHER, SELFPAY ==
[2024-02-19 10:44] LABS: Estimated Average Glucose 131 mg/dL; Hemoglobin A1c % 6.2 % (<6.0)
[2024-02-19 11:29] LABS: Alanine Aminotransferase 23 U/L (0-31); Anion Gap 13 (12-20); Aspartate Amino Transferase 15 U/L (5-31); Blood Urea Nitrogen 14 mg/dL (9-16); Calcium 9.2 mg/dL (8.4-10.2); Carbon Dioxide 24 mmol/L (22-29); Chloride 106 mmol/L (96-108); Cholesterol 110 mg/dL (<200); Estimated Glomerular Filt Rate > 60; Glucose Fasting 125 mg/dL (60-99); HDL Cholesterol 37 mg/dL (>40); LDL Cholesterol Calculated 53 mg/dL (<100); Potassium 4.1 mmol/L (3.3-5.1); Sodium 139 mmol/L (135-145); Triglycerides 101 mg/dL (<150)
== END 2024-02-19 07:50 | disposition home or self-care (01) ==
LOC: HO.HMGCLDS 07:49
PROVIDERS: PCP Internal Medicine; Visit Provider Internal Medicine
DX: E11.9 Type 2 diabetes mellitus without complications (principal); E78.5 Hyperlipidemia, unspecified
CPT/HCPCS: 36415; 80048; 80061; 83036; 84450; 84460

== ENCOUNTER 2024-02-22 07:52 | Outpatient (AMB) | payer OTHER, SELFPAY ==
--- NOTE | 2024-02-22 07:53 | A.OFFPC_ITS ---
Vital Signs 02/22/24 07:56 Height 5 ft 4 in Weight 196 lb BMI 33.6 BP 122/72 Blood Pressure Location Rt brachial Position Sitting Pulse 80 Pulse Source Pulse Oximeter Pulse Oximetry (%) 99 Oxygen Delivery Method Room Air Intake Visit Reasons: f/u DM Intake Note: Pt is here today for her DM f/u Allergies trazodone Adverse Reaction (Unknown, Verified 02/22/24 08:26) Weakness Medication List - Last Reconciled 02/22/24 by Karen Jain MD empagliflozin (Jardiance) 25 mg PO QAM metformin 1,000 mg PO BIDWMEAL 3 months rosuvastatin 5 mg PO DAILY tapinarof 1% (Vtama) appl topical Tobacco use date assessed: 02/22/24 Dental Screening Dental Screen Date: 02/22/24 Did you have a dental visit in the last 12 months?: No Was dental information given to patient?: Patient declined HPI f/u DM HPI Details 49-year-old lady with diabetes mellitus, hyperlipidemia, obesity, psoriasis, here today for her follow-up. She has been compliant with her medications, walks daily to work, and has been compliant with her diet. Diabetes control is better, with hemoglobin A1c at 6.2%, and fasting lipids are within normal limits. She is also currently on a new cream for her psoriasis prescribed by Dr. Shipman which has been working very well . Complains of thick yellow crusting in toenails of right foot, has been present now for several years, would like referral to see podiatry. Has seen a slot editor in [place] in the past which she states did not really help PENDING SALE TO [facility] Medical History Toenail fungus Pneumothorax Type 2 diabetes mellitus without complication, with no history of insulin use PTSD (post-traumatic stress disorder) Psoriasis Obesity Dyslipidemia Surgical History Hx of colonoscopy History of removal of cyst History of tooth extraction Remove/insert IUD H/O LEEP Family History Father Asthma Emphysema lung Diabetes mellitus Mother History of heart attack Cervical cancer Iron deficiency CVD (cardiovascular disease) Paternal Grandfather History of heart attack Daughter No problems noted. Son No problems noted. Social History Household Members: Other Household Members Other:: Brother Housing: House Do you presently have visiting nurse or other home services: No Alcohol intake: former Patient Tobacco Use Status: Never used Tobacco e-Cigarette/Vaping Use: Never Used Second Hand Smoke Exposure: No service: No Current occupational status: employed Sexual orientation: Straight/Heterosexual Cognitive needs: No Hearing needs: No Vision needs: Yes Female Reproductive History Menstrual Age of Menarche: 14 Questionnaire Thrive Questionnaire Date Thrive assessed: 11/21/23 NIKKI-7 AMB Questionnaire NIKKI-7 Date NIKKI - 7 assessed: 11/21/23 Source: Developed by Drs. Joshua Rosales, Jamila Chinchilla, Shahram Fisher and colleagues, with an educational elle from [employer]. Review of Systems Const Reports no additional complaints Eyes Reports no additional complaints ENT Reports no additional complaints and Denies dysphagia Card Reports no additional complaints Resp Reports no additional complaints GI Denies abdominal pain, Denies belching, Denies melena, Denies bloating, Denies change in bowel habits, Denies dysphagia, Denies excessive flatus, Denies dyspepsia and Denies heartburn Reports no additional complaints Musc Reports no additional complaints Skin/Breast Reports as per HPI Neuro Reports no additional complaints Psych Reports no additional complaints Endo Reports no additional complaints Jose/Lymph Reports no additional complaints Aller/Immun Reports no additional complaints Physical exam (Primary Care) Vital Signs: Last Vital Signs Pulse 80 02/22/24 07:56 BP 122/72 02/22/24 07:56 Pulse Ox 99 02/22/24 07:56 Oxygen Delivery Method Room Air 02/22/24 07:56 BMI result Body Mass Index 33.6 Tobacco/Smoking Status: Tobacco use Status Tobacco use date assessed 02/22/24 02/22/24 07:55 Patient Tobacco Use Status Never used Tobacco 02/22/24 07:55 Tobacco use type 01/18/24 09:33 e-Cigarette/Vaping Use Never Used 02/22/24 07:55 Thrive Assessment: Date of Thrive Assessment Date Thrive assessed 11/21/23 02/22/24 07:55 Const Other: Obese, alert, oriented x3, ambulatory normal gait General: no acute distress, alert and Physically active Nutritional Appearance: obese Orientation/consciousness: patient oriented x3 HENMT Head: Yes normocephalic General nose exam: Normal external nose present Face and sinus: Yes face symmetric Mouth: Normal oral and palatal mucosa present, oropharynx normal and moist mucous membranes Eyes General: appearance normal, both eyes and all related structures Neck Other: Supple, no lymphadenopathy, thyroid gland nonpalpable Neck: Yes full ROM, Yes no lymphadenopathy and Yes supple Resp Effort & Inspection: normal respiratory effort and able to speak in complete sentences Auscultation: clear to auscultation bilaterally Cardio Other: S1-S2 present regular rate and rhythm Rate: regular rate Rhythm: regular rhythm Heart sounds: S1 normal heart sound present and S2 normal heart sound present GI Other: Normal bowel sounds, soft, nontender with no mass palpated Auscultation: normal bowel sounds Other: Sees OBGYN for her routine Pap and pelvic exam has appointment for March 06, 2024 General: Yes no CVA tenderness Back/Spine/Pelvis Back: no CVA tenderness and No back tenderness Skin Other: slightly raised erythematous white plaque on extensor surfaces of both elbows Nails: yellow and thickened (Toes on right foot) Neuro General: patient oriented x3, gait normal, tone normal, moves all extremities, Normal light touch and pain sensation, no focal motor deficits and CN's II-XI intact bilaterally Extrem General: Yes full ROM, Yes no joint enlargement, Yes no pedal edema, Yes no calf tenderness and Yes normal gait Psych Appearance: grossly normal and well kempt Mental Status: mental status grossly normal Speech and movement: Normal speech and movement present Affect: normal affect Attitude: cooperative Thought process: Normal thought process present Thought content: Normal thought content present Results Reviewed Results Reviewed: Laboratory Tests 06/05/23 11/21/23 11/21/23 10:00 09:40 10:45 Estimat Average Glucose Hgb A1c (Clinic) 7.3 H Hemoglobin A1c % 8.0 Urine Creatinine 60.98 Urine Microalbumin 12.0 Microalb/Creat Ratio 19.6 02/19/24 07:52 Estimat Average Glucose 131 Hgb A1c (Clinic) Hemoglobin A1c % 6.2 H Urine Creatinine Urine Microalbumin Microalb/Creat Ratio Name: Leisa Segovia Radha Age/Sex: 49/F : 1975 Unit#: [id number] Attend Dr: Karen Jain MD Re02/19/24 Status: DEP REF Location: [facility] Disch: SPEC : [id number] DAVID: 02/19/24 STATUS: COMP REQ : [id number] RECD: 02/19/24-[address]: Karen Jain MD COMP: 02/19/24 ENTERED: 02/19/[address] [facility] [address]: ORDERED: Met Prof Fast, AST, ALT, Lipid Panel Test Result Flag Reference Sodium 139 135-145 mmol/L Potassium 4.1 3.3-5.1 mmol/L CL 106 96-108 mmol/L CO2 24 22-29 mmol/L Gap 13 12-20 BUN 14 9-16 mg/dL Creat 0.72 0.5-1.4 mg/dL EGFR > 60 NOTE: For -Danish individuals, multiply the result by 1.210. Chronic Kidney Disease: Estimated GFR < 60 mL/min/1.73m2 Severe Kidney Disease: Estimated GFR < 15 mL/min/1.73m2 FBS 125 H 60-99 mg/dL A fasting glucose from 100-125 mg/dl is considered impaired (pre-diabetes). CA 9.2 8.4-10.2 mg/dL AST (GOT) 15 5-31 U/L ALT (GPT) 23 0-31 U/L Triglyceride 101 <150 mg/dL Desirable Triglyceride: less than 150 mg/dL Borderline High Triglyceride 150-199 mg/dL High Triglyceride: 200-499 mg/dL Very High Triglyceride: greater than or equal to 5OO mg/dL Cholesterol 110 <200 mg/dL Desirable Cholesterol: less than 200 mg/dL Borderline High Cholesterol: 200-239 mg/dL High Cholesterol: greater than 239 mg/dL LDL Calculated 53 <100 mg/dL Desirable LDL: less than 100 mg/dL Near Optimal/Above Optimal LDL: 110-129 mg/dL Borderline High LDL: 130-159 mg/dL High LDL: 160-189 mg/dL Very High LDL: greater than or equal to 190 mg/dL HDL 37 L >40 mg/dL Desirable HDL: greater than 40 mg/dL Note: This HDL assay may give artificially low results in patients with liver disease. Assessment and Plan Assessment & Plan (1) Type 2 diabetes mellitus without complication, with no history of insulin use: Code(s): E11.9 - Type 2 diabetes mellitus without complications Plan: Continue with metformin and empagliflozin at the same dose, continue with regular exercise and adherence to recommended diet. Reminded that she is due for her diabetes retinopathy screening goes to [place] [facility] [place], referred to podiatry for her diabetes foot exam and evaluation of toenail fungus, up-to-date with her pneumonia vaccine gets yearly flu shot but does not want to get further COVID vaccine (2) Toenail fungus: Code(s): B35.1 - Tinea unguium Plan: Ordered referral to [facility] for further evaluation management (3) Hemochromatosis: Code(s): E83.119 - Hemochromatosis, unspecified Plan: Ordered a CBC and ferritin to drawn prior to next visit (4) Psoriasis: Comment: sees Dr Martini , has tried Otezla Code(s): L40.9 - Psoriasis, unspecified Plan: Currently on Tapinarof 1% cream prescribed by Dr. Martini with good result (5) Dyslipidemia: Code(s): E78.5 - Hyperlipidemia, unspecified Plan: Reviewed recent fasting lipid profile with patient with levels within normal limits except for low good cholesterol . Continue rosuvastatin 5 mg daily , in addition to adherence to low-cholesterol diet and regular exercise, at least 30 minutes 3 to 4 times a week. Advised patient to make healthy food choices, eat more fruits, vegetables, whole grains, wild caught fish and low-fat dairy. Limit amount of meat and fried or fatty food products, as well as processed foods and fast foods. Follow-up scheduled with repeat fasting lipid panel in 5 months. Orders: Orders Hemoglobin A1c 06/21/24 E11.9 - Type 2 diabetes mellitus without complications, E66.9 - Obesity, unspecified, E78.5 - Hyperlipidemia, unspecified, E83.119 - Hemochromatosis, unspecified, L40.9 - Psoriasis, unspecified Comprehensive Roma. Panel Fast 06/21/24 E11.9 - Type 2 diabetes mellitus without complications, E66.9 - Obesity, unspecified, E78.5 - Hyperlipidemia, unspecified, E83.119 - Hemochromatosis, unspecified, L40.9 - Psoriasis, unspecified Complete Blood Count Auto Diff 06/21/24 E11.9 - Type 2 diabetes mellitus without complications, E66.9 - Obesity, unspecified, E78.5 - Hyperlipidemia, unspecified, E83.119 - Hemochromatosis, unspecified, L40.9 - Psoriasis, unspecified IRON PROFILE 06/21/24 E11.9 - Type 2 diabetes mellitus without complications, E66.9 - Obesity, unspecified, E78.5 - Hyperlipidemia, unspecified, E83.119 - Hemochromatosis, unspecified, L40.9 - Psoriasis, unspecified Ferritin 06/21/24 E11.9 - Type 2 diabetes mellitus without complications, E66.9 - Obesity, unspecified, E78.5 - Hyperlipidemia, unspecified, E83.119 - Hemochromatosis, unspecified, L40.9 - Psoriasis, unspecified Lipid Panel 06/21/24 E11.9 - Type 2 diabetes mellitus without complications, E66.9 - Obesity, unspecified, E78.5 - Hyperlipidemia, unspecified, E83.119 - Hemochromatosis, unspecified, L40.9 - Psoriasis, unspecified Vitamin D 25-OH Total 06/21/24 E11.9 - Type 2 diabetes mellitus without complications, E66.9 - Obesity, unspecified, E78.5 - Hyperlipidemia, unspecified, E83.119 - Hemochromatosis, unspecified, L40.9 - Psoriasis, unspecified Referrals Podiatry Referral B35.1 - Tinea unguium Coding Level of Care Code Est Pt Level 4 (69146) Diagnoses Type 2 diabetes mellitus without complication, with no history of insulin use E11.9 Toenail fungus B35.1 Hemochromatosis E83.119 Psoriasis L40.9 Dyslipidemia E78.5
[2024-02-22 07:56] VITALS: BP 122/72; PULSE 80; O2SAT 99; BMI 33.6
== END 2024-02-22 08:40 | disposition home or self-care (01) ==
PROVIDERS: PCP Internal Medicine; Visit Provider Internal Medicine
DX: E11.9 Type 2 diabetes mellitus without complications (principal); B35.1 Tinea unguium; E83.119 Hemochromatosis, unspecified; L40.9 Psoriasis, unspecified; E78.5 Hyperlipidemia, unspecified
CPT/HCPCS: 99214

== ENCOUNTER 2024-03-06 12:53 | Outpatient (REF) | payer OTHER, SELFPAY ==
[2024-03-06 17:31] LABS: Bacterial Vaginosis PCR NEGATIVE (Negative); Candida Group PCR NOT DETECTED (Not Detect); Candida glab krusei PCR NOT DETECTED (Not Detect); Trichomonas vaginalis PCR NOT DETECTED (Not Detect)
[2024-03-07 02:21] LABS: CT PCR NOT DETECTED (Not Detect.); NG PCR NOT DETECTED (Not Detect.)
[2024-03-12 12:49] LABS: HPV mRNA E6/E7 rflx Not Detected (Not Detected)
== END 2024-03-06 12:54 | disposition home or self-care (01) ==
LOC: HO.LNP 12:53
PROVIDERS: PCP Internal Medicine; Visit Provider Advanced Practice Midwife
DX: Z01.419 Encounter for gynecological examination (general) (routine) without abnormal findings (principal); N93.9 Abnormal uterine and vaginal bleeding, unspecified; Z20.2 Contact with and (suspected) exposure to infections with a predominantly sexual mode of transmission
CPT/HCPCS: 0352U; 0353U; 87624; 88142; 99396

== ENCOUNTER 2024-03-06 12:53 | Outpatient (AMB) | payer OTHER, SELFPAY ==
[2024-03-06 13:07] VITALS: BP 118/74; BMI 33.5
--- NOTE | 2024-03-06 13:07 | A.OFFVIS_ITS ---
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 Doing well with concerns: 3 episodes of bleeding in November over a 5 weeks span, bleeding episodes were similar to the length of her normal menses. LMP 03/03/2024, currently bleeding. She tries to eat healthy, lost weight this year and feels better overall, stays active with exercise-walking. Currently is not sexually active. She denies vaginal itching and irritation. STI screening offered; she accepts. Denies family history of breast, ovarian or colon cancer. Last pap smear 2020, negative. History of LEEP in 2006. Mammogram: 2023. [facility] Medical History (Updated 03/06/24 @ 13:33 by Luzmaria Cotto CNM) Toenail fungus Pneumothorax Type 2 diabetes mellitus without complication, with no history of insulin use PTSD (post-traumatic stress disorder) Psoriasis Obesity Dyslipidemia Surgical History (Updated 03/06/24 @ 13:56 by Luzmaria Cotto CNM) Hx of colonoscopy History of removal of cyst History of tooth extraction H/O LEEP Family History Father Asthma Emphysema lung Diabetes mellitus Mother History of heart attack Cervical cancer Iron deficiency CVD (cardiovascular disease) Paternal Grandfather History of heart attack Daughter No problems noted. Son No problems noted. Social History Household Members: Other Household Members Other:: Brother Housing: House Do you presently have visiting nurse or other home services: No Alcohol intake: former Patient Tobacco Use Status: Never used Tobacco e-Cigarette/Vaping Use: Never Used Second Hand Smoke Exposure: No service: No Current occupational status: employed Sexual orientation: Straight/Heterosexual Cognitive needs: No Hearing needs: No Vision needs: Yes Female Reproductive History Menstrual Age of Menarche: 14 Duration of menses: 6-7 days Date of last menstrual period: 03/03/24 control method: none Total pregnancies: 4 Full term: 2 Number of Living Children: 2 Ab induced: 2 Date of last pap smear: 11/30/20 (negative) History of abnormal pap smear: Yes (2006 LUCY 3) Date of Mammogram: 11/16/23 Review of Systems Const All systems reviewed & are unremarkable except as noted in HPI and below Reports as per HPI Eyes Reports no additional complaints ENT Reports no additional complaints Card Reports no additional complaints Resp Reports no additional complaints GI Reports as per HPI and Reports no additional complaints Reports as per HPI Musc Reports no additional complaints Skin/Breast Reports as per HPI Neuro Reports no additional complaints Psych Reports no additional complaints Endo Reports no additional complaints Jose/Lymph Reports no additional complaints Aller/Immun Reports no additional complaints Physical Exam Vital Signs: Last Vital Signs BP 118/74 03/06/24 13:07 BMI result Body Mass Index 33.5 Const General: cooperative, healthy appearing, no acute distress, well developed and alert Orientation/consciousness: patient oriented x3 HEENT Head: Yes normal to inspection Eyes General: appearance normal, both eyes and all related structures Neck Neck: Yes normal visual inspection Thyroid: Thyroid normal Chest Chest palpation & inspection: normal inspection of the chest and other (no puckering, dimpling, peau de orange, retraction, discharge, masses) Breast/axilla inspection: normal inspection of the breasts Breast/axilla palpation: normal palpation of the breasts Resp Effort & Inspection: normal respiratory effort GI Inspection: Yes normal to inspection Palpation (GI): Soft to palpation Rectal Exam - Female: deferred General: Yes bladder normal to palpation External Female Exam: normal external appearance and normal appearance of the urethra Speculum Exam - Vagina: normal appearance of the vagina, normal palpation, normal vaginal discharge and vaginal bleeding Speculum Exam - Cervix: normal appearance of the cervix and normal palpation Bimanual exam- vagina & uterus: normal bimanual exam, normal palpation, uterine size normal, bladder normal to palpation, normal palpation and non-tender Bimanual Exam- Adnexa, other: no masses OB/external & speculum: vaginal bleeding Skin General skin exam: no rashes or lesions noted Rashes: no rashes Neuro General: patient oriented x3 Cognition (Neuro): normal cognition Extrem General: Yes normal to inspection Psych Attitude: cooperative Thought process: Normal thought process present Assessment & Plan Assessment & Plan (1) Encounter for well woman exam with routine gynecological exam: Code(s): Z01.419 - Encounter for gynecological examination (general) (routine) without abnormal findings Category: Medical (2) Abnormal uterine bleeding (AUB): Code(s): N93.9 - Abnormal uterine and vaginal bleeding, unspecified Plan Discussed: Current recommendations for pap smears per ASCCP guidelines. Repeat Pap today. Breast awareness and periodic breast exams. Maintain a healthy lifestyle including a well balanced diet and routine exercise. Use condoms for STI and prevention. STD blood work screening. Mammogram yearly. Workup for AUB including pelvic ultrasound, GC chlamydia, TSH and CBC, EMB. Discussed pre procedure medicating with [id number] either Tylenol or ibuprofen and to take with food 1 hour before the procedure, and hydrate well the same day. Patient verbalizes understanding and agrees to the plan of care. She was given opportunity to ask questions and all questions were answered to the best of my ability. 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 This note is constructed using voice recognition software. While every effort has been made to ensure accuracy, casing trimmer errors may have been included. Orders: Orders Pap Smear Today N93.9 - Abnormal uterine and vaginal bleeding, unspecified US pelvic and transvaginal Today N93.9 - Abnormal uterine and vaginal bleeding, unspecified TSH reflex Free T4 Today N93.9 - Abnormal uterine and vaginal bleeding, unspecified HIV Ab/Ag Today Z20.2 - Contact with and (suspected) exposure to infections with a predominantly sexual mode of transmission Hepatitis C Antibody Reflex Today Z20.2 - Contact with and (suspected) exposure to infections with a predominantly sexual mode of transmission Hepatitis B Core Antibody Today Z20.2 - Contact with and (suspected) exposure to infections with a predominantly sexual mode of transmission Syphilis Screen Today Z20.2 - Contact with and (suspected) exposure to infections with a predominantly sexual mode of transmission Bacterial Vaginosis Panel Today N93.9 - Abnormal uterine and vaginal bleeding, unspecified CT NG by PCR Today N93.9 - Abnormal uterine and vaginal bleeding, unspecified Complete Blood Count no Diff Today N93.9 - Abnormal uterine and vaginal bleeding, unspecified Coding Level of Care Code Est Pt Prev Care 40-64y(90394) Diagnoses Encounter for well woman exam with routine gynecological exam Z01.419 Abnormal uterine bleeding (AUB) N93.9
== END 2024-03-06 14:05 | disposition home or self-care (01) ==
PROVIDERS: PCP Internal Medicine; Visit Provider Advanced Practice Midwife
DX: Z01.419 Encounter for gynecological examination (general) (routine) without abnormal findings (principal); N93.9 Abnormal uterine and vaginal bleeding, unspecified
CPT/HCPCS: 99396

== ENCOUNTER 2024-03-14 14:36 | Outpatient (REF) | payer OTHER, SELFPAY ==
--- NOTE | ~2024-03-14 | US_ITS ---
EXAMINATION: US PELVIS CLINICAL INFORMATION: Abnormal uterine vaginal bleeding, last menstrual period March 03, 2024. COMPARISON: Pelvic ultrasound of 09/06/2012. TECHNIQUE: Ultrasound of the pelvis is performed using both transabdominal and transvaginal transducers along with Doppler. Transvaginal imaging is performed due to inadequate visualization transabdominally. FINDINGS: The uterus is anteverted and measures 7.3 x 4.7 x 5.0 cm. Endometrial thickness is 8 mm. No significant free fluid. Right ovary measures 3.1 x 1.8 x 2.7 cm, volume 7.9 mL. Left ovary measures 3.6 x 1.5 x 1.3 cm, volume 3.7 mL. A 1.8 x 1.2 x 1.3 cm right ovarian cyst appears simple, likely physiologic. There is no specific indication for additional imaging at this time. Left ovarian 0.8 x 0.7 x 0.8 cm complex cyst is difficult to characterize as visualization is limited due to bowel gas. A 0.9 x 0.7 x 0.9 cm complex cystic structure within the uterus along the posterior aspect of the endometrium. Prominent left adnexal vasculature, possibly representing pelvic congestion syndrome. US/US pelvic and transvaginal IMPRESSION: 1. Endometrial thickness is 8 mm. Correlation with clinical exam recommended to determine further management including possible biopsy for this patient with history of abnormal bleeding. 2. Left ovarian 0.9 cm complex cystic structure within the uterus along the posterior aspect of the endometrium was not identified on the 2012 exam. 3. Left ovarian 0.8 cm complex cyst was not identified on the 2012 exam and is difficult to characterize as visualization is limited due to bowel gas. 4. Prominent left adnexal vasculature, possibly representing pelvic congestion syndrome. 5. Follow-up ultrasound in 6-8 weeks could be considered.
[2024-03-14 18:09] LABS: Hemoglobin 14.9 g/dl (12.0-16.0); White Blood Count 7.9 X10*3/uL (4.8-10.8)
[2024-03-14 18:11] LABS: Hematocrit 43.5 % (37.0-47.0); Mean Corpuscular HGB Conc 34.3 g/dl (31.0-35.0); Mean Corpuscular Hemoglobin 28.9 pg (27.0-33.0); Mean Corpuscular Volume 84.5 fL (80.0-98.0); Mean Platelet Volume 13.4 fL (9.4-12.3); Platelet Count 168 X10*3/uL (160-400); Red Blood Count 5.15 X10*6/uL (4.20-5.50); Red Cell Distribution Width 12.6 % (11.0-16.0)
[2024-03-14 18:13] LABS: PLT ABN DIST 1
[2024-03-14 18:42] LABS: TSH reflex Free T4 3.48 uIU/mL (0.32-4.0)
[2024-03-15 04:25] LABS: Syphilis Screen Nonreactive (Nonreactive)
[2024-03-15 04:33] LABS: HBc Num1 0.12 S/CO (0.00-0.79); HIV AB/AG Nonreactive (Nonreactive); HIV Num 1 0.05 S/CO (0.00-0.99); Hepatitis B Core Antibody Nonreactive (Nonreactive); ~HepC Num1 0.16 S/CO (0.00-0.79); ~Hepatitis C Antibody Nonreactive (Nonreactive)
== END 2024-03-14 14:37 | disposition home or self-care (01) ==
LOC: HO.US 14:36
PROVIDERS: PCP Internal Medicine; Visit Provider Advanced Practice Midwife
DX: N93.9 Abnormal uterine and vaginal bleeding, unspecified (principal); Z20.2 Contact with and (suspected) exposure to infections with a predominantly sexual mode of transmission
CPT/HCPCS: 36415; 76830; 76856; 84443; 85027; 86704; 86780; 86803; 87389

== ENCOUNTER 2024-05-15 15:02 | Outpatient (AMB) | payer OTHER, SELFPAY ==
--- NOTE | 2024-05-15 15:08 | A.OFFVIS_ITS ---
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 FORMERLY [facility] Medical History Toenail fungus Pneumothorax Type 2 diabetes mellitus without complication, with no history of insulin use PTSD (post-traumatic stress disorder) Psoriasis Obesity Dyslipidemia Surgical History Hx of colonoscopy History of removal of cyst History of tooth extraction H/O LEEP Family History Father Asthma Emphysema lung Diabetes mellitus Mother History of heart attack Cervical cancer Iron deficiency CVD (cardiovascular disease) Paternal Grandfather History of heart attack Daughter No problems noted. Son No problems noted. Social History Household Members: Other Household Members Other:: Brother Housing: House Do you presently have visiting nurse or other home services: No Alcohol intake: former Patient Tobacco Use Status: Never used Tobacco e-Cigarette/Vaping Use: Never Used Second Hand Smoke Exposure: No service: No Current occupational status: employed Sexual orientation: Straight/Heterosexual Cognitive needs: No Hearing needs: No Vision needs: Yes Female Reproductive History Menstrual Age of Menarche: 14 Duration of menses: 8-10 days Date of last menstrual period: 05/03/24 Physical Exam Vital Signs: Last Vital Signs BP 112/72 05/15/24 15:12 BMI result Body Mass Index 33.5 Results AMB Test Urine AMB Test Urine Negative Last Edit by HERB Beaver on 05/15/24 15:14 Results Reviewed Results Reviewed: Laboratory Last Values [facility] Negative 05/15/24 15:[address] [address] Ultrasound Report Signed Patient: Leisa Segovia MR#: [id number] : 1975 Acct:[id number] Age/Sex: 49 / F ADM Date: 03/14/24 Loc: HO.US Attending Dr: Luzmaria Cotto CNM Ordering Physician: Luzmaria Cotto CNM Date of Service: 03/14/24 Procedure(s): US pelvic and transvaginal Accession Number(s): [id number] cc: Karen Jain MD; Luzmaria Cotto CNM~ EXAMINATION: US PELVIS CLINICAL INFORMATION: Abnormal uterine vaginal bleeding, last menstrual period March 03, 2024. COMPARISON: Pelvic ultrasound of 09/06/2012. TECHNIQUE: Ultrasound of the pelvis is performed using both transabdominal and transvaginal transducers along with Doppler. Transvaginal imaging is performed due to inadequate visualization transabdominally. FINDINGS: The uterus is anteverted and measures 7.3 x 4.7 x 5.0 cm. Endometrial thickness is 8 mm. No significant free fluid. Right ovary measures 3.1 x 1.8 x 2.7 cm, volume 7.9 mL. Left ovary measures 3.6 x 1.5 x 1.3 cm, volume 3.7 mL. A 1.8 x 1.2 x 1.3 cm right ovarian cyst appears simple, likely physiologic. There is no specific indication for additional imaging at this time. Left ovarian 0.8 x 0.7 x 0.8 cm complex cyst is difficult to characterize as visualization is limited due to bowel gas. A 0.9 x 0.7 x 0.9 cm complex cystic structure within the uterus along the posterior aspect of the endometrium. Prominent left adnexal vasculature, possibly representing pelvic congestion syndrome. US/US pelvic and transvaginal IMPRESSION: 1. Endometrial thickness is 8 mm. Correlation with clinical exam recommended to determine further management including possible biopsy for this patient with history of abnormal bleeding. 2. Left ovarian 0.9 cm complex cystic structure within the uterus along the posterior aspect of the endometrium was not identified on the 2012 exam. 3. Left ovarian 0.8 cm complex cyst was not identified on the 2012 exam and is difficult to characterize as visualization is limited due to bowel gas. 4. Prominent left adnexal vasculature, possibly representing pelvic congestion syndrome. 5. Follow-up ultrasound in 6-8 weeks could be considered. Dictated By: Migdalia Vasquez MD Signed By: <Electronically signed by Migdalia Vasquez MD in OV> 03/26/24 0630 DD/ 1541 TD/TT: Feltmaker: Assessment & Plan Assessment & Plan (1) Encounter to discuss test results: Code(s): Z71.2 - Person consulting for explanation of examination or test findings (2) Abnormal uterine bleeding (AUB): Code(s): N93.9 - Abnormal uterine and vaginal bleeding, unspecified (3) Endometrial polyp: Code(s): N84.0 - Polyp of corpus uteri Plan Discussed: Ultrasound findings complex ovarian cyst noted on the left, and complex cystic structure within the endometrium. Pap smear, CBC TSH are normal. Reviewed endometrial polyps information, hysteroscopy procedure. Recommendations for a hysteroscopy to remove any endocervical polyps and to diagnose any abnormal changes within the uterine lining including atypia, precancer, cancer. All of her questions and concerns were addressed to the best of my ability and shared decision making. She is agreeable to the plan of care. Hysteroscopy consult appointment will be made. This note is constructed using voice recognition software. While every effort has been made to ensure accuracy, wood gang sawyer errors may have been included. Orders: Orders AMB HCG Urine Test Today N93.9 - Abnormal uterine and vaginal bleeding, unspecified US pelvic and transvaginal Today N83.299 - Other ovarian cyst, unspecified side Coding Level of Care Code Est Pt Level 3 (43416) Diagnoses Encounter to discuss test results Z71.2 Abnormal uterine bleeding (AUB) N93.9 Endometrial polyp N84.0
[2024-05-15 15:12] VITALS: BP 112/72; BMI 33.5
== END 2024-05-16 07:35 | disposition home or self-care (01) ==
PROVIDERS: PCP Internal Medicine; Visit Provider Advanced Practice Midwife
DX: Z71.2 Person consulting for explanation of examination or test findings (principal); N93.9 Abnormal uterine and vaginal bleeding, unspecified; N84.0 Polyp of corpus uteri
CPT/HCPCS: 99213

== ENCOUNTER → 2024-05-15 15:02 | Outpatient (BNVA) | payer OTHER, SELFPAY | PROVIDERS: PCP Internal Medicine; Visit Provider Advanced Practice Midwife | DX: Z71.2 Person consulting for explanation of examination or test findings (principal); N93.9 Abnormal uterine and vaginal bleeding, unspecified; N84.0 Polyp of corpus uteri; Z32.02 Encounter for pregnancy test, result negative; Z80.49 Family history of malignant neoplasm of other genital organs | CPT/HCPCS: 81025; 99212 ==

== ENCOUNTER 2024-05-22 13:45 | Outpatient (REF) | payer OTHER, SELFPAY ==
--- NOTE | ~2024-05-22 | US_ITS ---
EXAMINATION: US PELVIS CLINICAL INFORMATION: Ovarian cysts, last menstrual period 05/03/2024. COMPARISON: None available. TECHNIQUE: Ultrasound of the pelvis is performed using both transabdominal and transvaginal transducers along with Doppler. Transvaginal imaging is performed due to inadequate visualization transabdominally. Limited visualization due to bowel gas and body habitus. FINDINGS: The uterus is anteverted and measures 8.4 x 4.0 x 5.2 cm. Diffusely heterogeneous myometrium with 0.4 cm myometrial cyst anterior to the endometrium and 0.4 cm myometrial cyst posterior to the endometrium. No significant free fluid. Endometrial thickness is 7 mm. Right ovary measures 2.0 x 1.3 x 2.1 cm, volume 2.9 mL. Left ovary measures 3.0 x 1.8 x 1.6 cm, volume 4.5 mL. Bilateral ovaries are grossly unremarkable, allowing for limited visualization. US/US pelvic and transvaginal IMPRESSION: 1. Diffusely heterogeneous myometrium with 0.4 cm myometrial cyst anterior to the endometrium and 0.4 cm myometrial cyst posterior to the endometrium. Previous exam demonstrated a 0.9 cm complex structure within the uterus along the posterior aspect of the endometrium. 2. Endometrial thickness is 7 mm. 3. Bilateral ovaries are grossly unremarkable. Previously identified bilateral ovarian cysts are not visualized, although visualization is somewhat limited due to bowel gas. 4. Gynecologic consultation recommended to determine further management
== END 2024-05-22 13:46 | disposition home or self-care (01) ==
LOC: HO.US 13:45
PROVIDERS: PCP Internal Medicine; Visit Provider Advanced Practice Midwife
DX: N83.299 Other ovarian cyst, unspecified side (principal)
CPT/HCPCS: 76830; 76856

== ENCOUNTER 2024-06-05 08:50 | Outpatient (AMB) | payer OTHER, SELFPAY ==
--- NOTE | 2024-06-05 09:30 | MHC.OFFVIS ---
Intake Visit Reasons: US follow up Bilingual Account Manager: Bilingual Account Manager Present Allergies trazodone Adverse Reaction (Unknown, Verified 06/05/24 09:30) Weakness Is last menstrual period known: Yes Last menstrual period: 05/03/24 HPI Comments Details: Patient is here for an ultrasound follow up, history of AUB. She reports recent normal cycle. [facility] Medical History Toenail fungus Pneumothorax Type 2 diabetes mellitus without complication, with no history of insulin use PTSD (post-traumatic stress disorder) Psoriasis Obesity Dyslipidemia Surgical History Hx of colonoscopy History of removal of cyst History of tooth extraction H/O LEEP Family History Father Asthma Emphysema lung Diabetes mellitus Mother History of heart attack Cervical cancer Iron deficiency CVD (cardiovascular disease) Paternal Grandfather History of heart attack Daughter No problems noted. Son No problems noted. Social History Household Members: Other Household Members Other:: Brother Housing: House Do you presently have visiting nurse or other home services: No Alcohol intake: former Patient Tobacco Use Status: Never used Tobacco e-Cigarette/Vaping Use: Never Used Second Hand Smoke Exposure: No service: No Current occupational status: employed Sexual orientation: Straight/Heterosexual Cognitive needs: No Hearing needs: No Vision needs: Yes Female Reproductive History Menstrual Age of Menarche: 14 Date of last menstrual period: 05/03/24 Review of Systems Const All systems reviewed & are unremarkable except as noted in HPI and below Endo Reports no additional complaints Physical Exam Const General: cooperative, healthy appearing and no acute distress Psych Appearance: well kempt Attitude: cooperative Thought process: Normal thought process present Results Reviewed Results Reviewed: [address] [address] Ultrasound Report Signed Patient: Leisa Segovia MR#: [id number] : 1975 Acct:[id number] Age/Sex: 49 / F ADM Date: 05/22/24 Loc: HO.US Attending Dr: Luzmaria Cotto CNM Ordering Physician: Luzmaria Cotto CNM Date of Service: 05/22/24 Procedure(s): US pelvic and transvaginal Accession Number(s): [id number] cc: Karen Jain MD; Luzmaria Cotto CNM~ EXAMINATION: US PELVIS CLINICAL INFORMATION: Ovarian cysts, last menstrual period 05/03/2024. COMPARISON: None available. TECHNIQUE: Ultrasound of the pelvis is performed using both transabdominal and transvaginal transducers along with Doppler. Transvaginal imaging is performed due to inadequate visualization transabdominally. Limited visualization due to bowel gas and body habitus. FINDINGS: The uterus is anteverted and measures 8.4 x 4.0 x 5.2 cm. Diffusely heterogeneous myometrium with 0.4 cm myometrial cyst anterior to the endometrium and 0.4 cm myometrial cyst posterior to the endometrium. No significant free fluid. Endometrial thickness is 7 mm. Right ovary measures 2.0 x 1.3 x 2.1 cm, volume 2.9 mL. Left ovary measures 3.0 x 1.8 x 1.6 cm, volume 4.5 mL. Bilateral ovaries are grossly unremarkable, allowing for limited visualization. US/US pelvic and transvaginal IMPRESSION: 1. Diffusely heterogeneous myometrium with 0.4 cm myometrial cyst anterior to the endometrium and 0.4 cm myometrial cyst posterior to the endometrium. Previous exam demonstrated a 0.9 cm complex structure within the uterus along the posterior aspect of the endometrium. 2. Endometrial thickness is 7 mm. 3. Bilateral ovaries are grossly unremarkable. Previously identified bilateral ovarian cysts are not visualized, although visualization is somewhat limited due to bowel gas. 4. Gynecologic consultation recommended to determine further management Dictated By: Migdalia Vasquez MD Signed By: <Electronically signed by Migdalia Vasquez MD in OV> 06/03/24 1445 DD/ 1425 TD/TT: Design Assistant: Assessment & Plan Assessment & Plan (1) Encounter to discuss test results: Code(s): Z71.2 - Person consulting for explanation of examination or test findings (2) Abnormal uterine bleeding (AUB): Code(s): N93.9 - Abnormal uterine and vaginal bleeding, unspecified Plan Discussed: Ultrasound findings requiring further evaluation with hysteroscopy due to possible endometrial polyps. Reviewed anticipatory guidance for day stay surgery. Consult with Dr. Amador to discuss hysteroscopy. All of her questions and concerns were addressed to the best of my ability and shared decision making. She is agreeable to the plan of care. This note is constructed using voice recognition software. While every effort has been made to ensure accuracy, car detailer errors may have been included. Coding Level of Care Code Est Pt Level 3 (17970) Diagnoses Encounter to discuss test results Z71.2 Abnormal uterine bleeding (AUB) N93.9
== END 2024-06-05 10:01 | disposition home or self-care (01) ==
PROVIDERS: PCP Internal Medicine; Visit Provider Advanced Practice Midwife
DX: Z71.2 Person consulting for explanation of examination or test findings (principal); N93.9 Abnormal uterine and vaginal bleeding, unspecified
CPT/HCPCS: 99213

== ENCOUNTER → 2024-06-05 08:50 | Outpatient (BNVA) | payer OTHER, SELFPAY | PROVIDERS: PCP Internal Medicine; Visit Provider Advanced Practice Midwife | DX: Z71.2 Person consulting for explanation of examination or test findings (principal); N93.9 Abnormal uterine and vaginal bleeding, unspecified | CPT/HCPCS: 99212 ==

== ENCOUNTER 2024-07-09 13:28 | Outpatient (AMB) | payer OTHER, SELFPAY ==
[2024-07-09 13:43] VITALS: BMI 33.3
--- NOTE | 2024-07-09 13:43 | A.OFFVIS_ITS ---
Vital Signs 07/09/24 13:43 Height 5 ft 4 in Weight 194 lb 0.108 oz BMI 33.3 Intake Visit Reasons: Consult for Hysteroscopy Crusher Screen Repairer Required: No Information Interpreted: non-clinical & clinical Lamp Cleaner Street Light: Lamp Cleaner Street Light Present Accompanied by: Self / Same As Patient Allergies trazodone Adverse Reaction (Unknown, Verified 07/09/24 13:44) Weakness Is last menstrual period known: Yes Last menstrual period: 08/20/20 Post menopausal: No Patient : No Do you need a note to return to daycare/school/sports/work: Yes (for surgery on monday) HPI Comments Details: The patient is presenting referred from Luzmaria Cotto CNM regarding abnormal uterine bleeding. The following workup was done so far: H&H 14.9/43.5 TSH within normal 11/15 mammogram BI-RADS 1 GC/CT negative Pelvic ultrasound showed the following: The uterus is anteverted and measures 8.4 x 4.0 x 5.2 cm. Diffusely heterogeneous myometrium with 0.4 cm myometrial cyst anterior to the endometrium and 0.4 cm myometrial cyst posterior to the endometrium. No significant free fluid. Endometrial thickness is 7 mm. Right ovary measures 2.0 x 1.3 x 2.1 cm, volume 2.9 mL. Left ovary measures 3.0 x 1.8 x 1.6 cm, volume 4.5 mL. Bilateral ovaries are grossly unremarkable, allowing for limited visualization. [facility] Medical History Toenail fungus Pneumothorax Type 2 diabetes mellitus without complication, with no history of insulin use PTSD (post-traumatic stress disorder) Psoriasis Obesity Dyslipidemia Surgical History Hx of colonoscopy History of removal of cyst History of tooth extraction H/O LEEP Family History Father Asthma Emphysema lung Diabetes mellitus Mother History of heart attack Cervical cancer Iron deficiency CVD (cardiovascular disease) Paternal Grandfather History of heart attack Daughter No problems noted. Son No problems noted. Social History Household Members: Other Household Members Other:: Brother Housing: House Do you presently have visiting nurse or other home services: No Alcohol intake: former Patient Tobacco Use Status: Never used Tobacco e-Cigarette/Vaping Use: Never Used Second Hand Smoke Exposure: No service: No Current occupational status: employed Sexual orientation: Straight/Heterosexual Cognitive needs: No Hearing needs: No Vision needs: Yes Female Reproductive History Menstrual Age of Menarche: 14 Date of last menstrual period: 08/20/20 Total pregnancies: 2 Full term: 2 Review of Systems Card Reports as per HPI and Reports no additional complaints Resp Reports as per HPI and Reports no additional complaints GI Reports as per HPI and Reports no additional complaints Reports as per HPI Physical Exam Vital Signs: BMI result Body Mass Index 33.3 Const General: cooperative, healthy appearing and comfortable Resp Effort & Inspection: normal respiratory effort Auscultation: clear to auscultation bilaterally Percussion: percussion normal Cardio Palpation: normal PMI Rate: regular rate Rhythm: regular rhythm Heart sounds: no murmurs and no rubs Peripheral pulses: Peripheral pulses 2+ throughout GI Inspection: Yes normal to inspection Palpation (GI): Soft to palpation, nontender, no guarding, not rigid and No hepatosplenomegaly present Percussion: Yes normal to percussion Auscultation: normal bowel sounds Rectal Exam - Female: deferred Assessment & Plan Assessment & Plan (1) Abnormal uterine bleeding (AUB): Code(s): N93.9 - Abnormal uterine and vaginal bleeding, unspecified Plan: Discussed with the patient the pelvic ultrasound findings. Recommended to the patient that the next step is an endometrial sampling via hysteroscopy D&C possible polypectomy versus endometrial biopsy to r/o endometrial pathology including hyperplasia or cancer. All the pros and cons risks and benefits of each approach were discussed with the patient, endometrial biopsy being less invasive, office procedure with less sensitivity and inability diagnose a polyp and removal versus hysteroscopy done under anesthesia more invasive more sensitive to endometrial cancer and possibility of diagnosing and endometrial polyp with the possibility of polypectomy. All questions were answered pt verbalized understanding and decided to proceed with hysteroscopy D&C possible polypectomy/myomectomy. Discussed with the patient the procedure , all benefits and risks including but not limited to inability to complete the procedure , insufficient endometrial tissue for a complete evaluation of the endometrial cavity , bleeding, infection, possible need for blood transfusion with all its risk ( HIV,syphilis, Hepatitis, anaphylaxis shock, others..), injury to bladder, rectum, possible need for laparoscopy/laparotomy or hysterectomy. The patient verbalized understanding and signed the consent. Instructions given the patient to stay NPO after midnight the day prior to the procedure, to discontinue Jardiance for 3 days prior to the surgical day and to take only metformin the night before the procedure and to hold any other medication including morning metformin dose. discussed the morning of the surgical procedure and to schedule a 2 week postoperative appointment Coding Level of Care Code Est Pt Level 3 (57744) Diagnoses Abnormal uterine bleeding (AUB) N93.9
== END 2024-07-09 14:27 | disposition home or self-care (01) ==
PROVIDERS: PCP Internal Medicine; Visit Provider Obstetrics & Gynecology
DX: N93.9 Abnormal uterine and vaginal bleeding, unspecified (principal)
CPT/HCPCS: 99213

== ENCOUNTER → 2024-07-09 13:28 | Outpatient (BNVA) | payer OTHER, SELFPAY | PROVIDERS: PCP Internal Medicine; Visit Provider Obstetrics & Gynecology | DX: N93.9 Abnormal uterine and vaginal bleeding, unspecified (principal) | CPT/HCPCS: 99212 ==

== ENCOUNTER 2024-07-19 10:43 | Day surgery (SDC) | payer OTHER, SELFPAY ==
[2024-07-19 11:12] VITALS: BP 109/75; PULSE 85; RESP 16; TEMP 36.9; O2SAT 98; BMI 31.7
[2024-07-19 11:16] LABS: UPreg QC Valid YES; Urine Pregnancy NEGATIVE (NEGATIVE)
[2024-07-19] MEDS: Lactated Ringers 1,000 ML 100 ML IVCONT (11:23)
[2024-07-19 11:29] LABS: Glucose, Whole Blood 137 mg/dL (60-115)
--- NOTE | 2024-07-19 11:40 | HO.ANESPROP2 ---
Documented by User: Mary Thomson NP 07/17/24 14:37 HPI - Anesthesia Eval Consult details Narrative: 49yo F for D&C Hysteroscopy,possible myomectomy,possible polypectomy, Anesthesia Pre-Procedure Meds Is the patient on any of the following meds?: SGLT2 Inhib PMFSH Active Problems Active Problems: All Active Problems Encounter for well woman exam with routine gynecological exam (Acute) Toenail fungus (Acute) Hemochromatosis (Acute) Obesity (BMI 30-39.9) (Acute) Type 2 diabetes mellitus without complication, with no history of insulin use (Acute) PTSD (post-traumatic stress disorder) (Acute) Psoriasis (Acute) Dyslipidemia (Acute) Past Medical History Medical History Toenail fungus Pneumothorax Type 2 diabetes mellitus without complication, with no history of insulin use PTSD (post-traumatic stress disorder) Psoriasis Obesity Dyslipidemia Family History Family History Father Asthma Emphysema lung Diabetes mellitus Mother History of heart attack Cervical cancer Iron deficiency CVD (cardiovascular disease) Paternal Grandfather History of heart attack Daughter No problems noted. Son No problems noted. Family history of problems with anesthesia: No Surgical History Surgical History (Updated 07/19/24 @ 11:17 by Delicia Simms RN) History of cystoscopy Hx of colonoscopy History of removal of cyst History of tooth extraction H/O LEEP History of Problems with Anesthesia: No Social History Social History Household Members: Other Household Members Other:: Brother Housing: House Are you a primary home care scheduler to a significant other at home: No Do you presently have visiting nurse or other home services: No Alcohol intake: former Patient Tobacco Use Status: Never used Tobacco e-Cigarette/Vaping Use: Never Used Second Hand Smoke Exposure: No Use of substances other than those prescribed or required for medical reasons: No Have you been hit, kicked, punched, or otherwise hurt by someone within the past year? If so, by whom?: No Are you DNR?: No Advance Directives: No Advance Directives Information Provided: Yes Recently lost weight without trying: No How much weight loss: Not applicable Eating poorly because of decreased appetite: No Nutrition screen score: 0 Nutrition Risks: No Nutritional Risk Patient : No : No Poor oral hygiene: Yes (chipped teeth) service: No Current occupational status: employed Sexual orientation: Straight/Heterosexual Cognitive needs: No Hearing needs: No Vision needs: Yes Meds Allergies Allergy/AdvReac Type Severity Reaction Status Date / Time trazodone AdvReac Unknown Weakness Verified 07/19/24 11:07 Home Medications ?Medication ?Instructions ?Recorded ?Confirmed ?Last Taken ?Type tapinarof 1 % topical cream (Vtama) 1 appl topical DAILY 01/17/24 07/19/24 Unknown History Assessment and Plan Assessment Anesthesia Assessment: Chart Reviewed Final Anesthetic Review Family History of Problems with Anesthesia: No History of Problems with Anesthesia: No Documented by User: Annita Olmos DO 07/19/24 11:42 HPI - Anesthesia Eval Anesthesia Pre-Procedure Meds Is the patient on any of the following meds?: SGLT2 Inhib PMFSH Past Medical History Medical History Toenail fungus Pneumothorax Type 2 diabetes mellitus without complication, with no history of insulin use PTSD (post-traumatic stress disorder) Psoriasis Obesity Dyslipidemia Family History Family History Father Asthma Emphysema lung Diabetes mellitus Mother History of heart attack Cervical cancer Iron deficiency CVD (cardiovascular disease) Paternal Grandfather History of heart attack Daughter No problems noted. Son No problems noted. Family history of problems with anesthesia: No Surgical History Surgical History (Updated 07/19/24 @ 11:17 by Delicia Simms RN) History of cystoscopy Hx of colonoscopy History of removal of cyst History of tooth extraction H/O LEEP History of Problems with Anesthesia: No Social History Social History Household Members: Other Household Members Other:: Brother Housing: House Are you a primary home care scheduler to a significant other at home: No Do you presently have visiting nurse or other home services: No Alcohol intake: former Patient Tobacco Use Status: Never used Tobacco e-Cigarette/Vaping Use: Never Used Second Hand Smoke Exposure: No Use of substances other than those prescribed or required for medical reasons: No Have you been hit, kicked, punched, or otherwise hurt by someone within the past year? If so, by whom?: No Are you DNR?: No Advance Directives: No Advance Directives Information Provided: Yes Recently lost weight without trying: No How much weight loss: Not applicable Eating poorly because of decreased appetite: No Nutrition screen score: 0 Nutrition Risks: No Nutritional Risk Patient : No : No Poor oral hygiene: Yes (chipped teeth) service: No Current occupational status: employed Sexual orientation: Straight/Heterosexual Cognitive needs: No Hearing needs: No Vision needs: Yes Meds Allergies Allergy/AdvReac Type Severity Reaction Status Date / Time trazodone AdvReac Unknown Weakness Verified 07/19/24 11:07 Home Medications ?Medication ?Instructions ?Recorded ?Confirmed ?Last Taken ?Type tapinarof 1 % topical cream (Vtama) 1 appl topical DAILY 01/17/24 07/19/24 Unknown History Exam Exam Date and Time: 07/19/24 1135 Height,Weight and Vital Signs: Height 5 ft 4 in Weight 83.824 kg Vital Signs Temperature 98.5 F 07/19/24 11:12 Pulse Rate 85 07/19/24 11:12 Respiratory Rate 16 07/19/24 11:12 Blood Pressure 109/75 07/19/24 11:12 Pulse Oximetry 98 07/19/24 11:12 Oxygen Delivery Method Room Air 07/19/24 11:12 Temperature 98.5 F 07/19/24 11:12 Pulse Rate 85 07/19/24 11:12 Respiratory Rate 16 07/19/24 11:12 Blood Pressure 109/75 07/19/24 11:12 Pulse Oximetry 98 07/19/24 11:12 Oxygen Delivery Method Room Air 07/19/24 11:12 Airway Mallampati Class: II TM Dist: >3cm Neck ROM: Full Loose/Missing/Broken Teeth: Yes (multiple broken teeth per patient but nothing loose) Heart: S1S2 Lungs: CTAB Assessment and Plan Assessment Anesthesia Assessment: Anesthesia Plan Discussed and Chart Reviewed Final Anesthetic Review Family History of Problems with Anesthesia: No History of Problems with Anesthesia: No NPO: Yes ASA Class: II Final Preanesthetic Review: No Changes in Pt Med Stat, Meds/Allgs Chart Reviewed, Consent Obtained/Reviewed and Anes Risks/Benef Reviewed Patient Risk: Low Procedure Risk: Low Anesthetic Plan Anesthetic Plan: GA and Agree w/ Assess. and Plan Disposition: Standard PACU
--- NOTE | 2024-07-19 12:05 | MHC.SHP ---
Pre-Procedural Eval Section A - 24 Hr Update-Section A only Date of Service: 07/19/24 The patient is an INPATIENT: No Changes since office visit: No Cold of Flu in the past 2 weeks, No New Medical Problems, No Changes in Medication and No Patient answered all questions The patient has been examined within 24 hours of the surgical procedure. The History & Physical has been completed within 30 days and I have reviewed it.: Yes Section B - Complete if H&P > 30 days Chief Complaint: Abnormal uterine and vaginal bleeding, unspecified Allergies: Allergies Allergy/AdvReac Type Severity Reaction Status Date / Time trazodone AdvReac Unknown Weakness Verified 07/19/24 11:07 Plan Diagnosis/Plan: Unchanged I have reviewed the history and physical and performed a pertinent physical examination on my patient. No changes have occurred unless specified. Time Spent With Patient Time: Total time managing care of this patient today ____ minutes.
--- NOTE | 2024-07-19 12:52 | P.BOP_ITS ---
Brief Operative Note Date of Service: 07/19/24 Pre-op diagnosis: Abnormal uterine bleeding Post-op diagnosis: same (Normal endometrial cavity) Procedure: Hysteroscopy D&C Surgeon: Matt Amador MD Anesthesia: GLMA Was an Contact Lens Polisher used for this Procedure?: No Estimated blood loss (mL): 0 Pathology: other (Endometrial Scrapping.) Condition: stable Disposition: PACU
--- NOTE | 2024-07-19 12:52 | P.OP_ITS ---
Operative Note Operative Note Date of Service: 07/19/24 Narrative: Preop Diagnosis: Abnormal uterine bleeding Operation: Diagnostic Hysteroscopy, Dilataion & Curettage Post Op Diagnosis: Normal endometrial and endocervical cavity, no evidence of pathology QBL: Minimal Anesthesia: GLMA Surgeon: Matt Amador MD Automatic Vulcanizing Operator: None Complication: None Pathology: Endometrial Scrapings Procedure: The patient was put in the dorsal lithotomy position, scrubbed, and draped in the usual manner. A sterile speculum was inserted in the patient's vagina. The anterior lip of the cervix was grasped with a single tooth tenaculum. The cervix was dilated up to 5 mm, then the scope was inserted in the patient's uterus. Inspection revealed normal endocervical & endometrial cavity with no evidence of pathology. The scope was taken out of the uterine cavity , then sharp curetting was carried on with no complications. At the end of the procedure, all instruments were taken out of the patient uterine and vaginal cavity. The single tooth tenaculum was removed and homeostasis was assured using pressure. The patient tolerated the procedure well and was transferred to the PACU in a stable condition.
[2024-07-19 13:00] VITALS: BP 144/80; PULSE 83; RESP 16; TEMP 36.9; O2SAT 99
[2024-07-19 13:05] VITALS: BP 126/86; PULSE 77; RESP 16; O2SAT 97
[2024-07-19 13:10] VITALS: BP 118/73; PULSE 85; RESP 16; O2SAT 97
[2024-07-19 13:15] VITALS: BP 124/80; PULSE 80; RESP 16; O2SAT 98
[2024-07-19 13:30] VITALS: BP 129/84; PULSE 82; RESP 16; TEMP 36.9; O2SAT 98
== END 2024-07-19 13:47 | disposition home or self-care (01) ==
PROVIDERS: Nurse Practitioner; PCP Internal Medicine; Visit Provider Obstetrics & Gynecology
PROC: 0UDB8ZZ Extraction of Endometrium, Via Natural or Artificial Opening Endoscopic (ICD-10-PCS; CPT 58558; principal; 2024-07-19 13:00)
DX: N93.9 Abnormal uterine and vaginal bleeding, unspecified (principal); E11.9 Type 2 diabetes mellitus without complications; E78.5 Hyperlipidemia, unspecified; F43.10 Post-traumatic stress disorder, unspecified; L40.9 Psoriasis, unspecified; E66.9 Obesity, unspecified; Z68.33 Body mass index [BMI] 33.0-33.9, adult; Z79.84 Long term (current) use of oral hypoglycemic drugs; Z79.899 Other long term (current) drug therapy; Z88.8 Allergy status to other drugs, medicaments and biological substances; Z98.890 Other specified postprocedural states
CPT/HCPCS: 58558; 81025; 82947; 88305; J1100; J1885; J2405; J2704; J3010

== ENCOUNTER → 2024-07-19 10:43 | Outpatient (BNV) | payer OTHER, SELFPAY | PROVIDERS: PCP Internal Medicine; Visit Provider Obstetrics & Gynecology | DX: N93.9 Abnormal uterine and vaginal bleeding, unspecified (principal) | CPT/HCPCS: 58558 ==

== ENCOUNTER 2024-08-08 10:42 | Outpatient (AMB) | payer OTHER, SELFPAY ==
--- NOTE | 2024-08-08 10:46 | MHC.OFFVIS ---
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 Intraoperative findings showed normal endometrial cavity with no evidence of any abnormalities The pathology showed the following: Endometrium, curettage: Benign late secretory endometrium with focal breakdown; no atypia or carcinoma. The following workup was done so far: H&H 14.9/43.5 TSH within normal 11/15 mammogram BI-RADS 1 GC/CT negative Pelvic ultrasound showed the following: The uterus is anteverted and measures 8.4 x 4.0 x 5.2 cm. Diffusely heterogeneous myometrium with 0.4 cm myometrial cyst anterior to the endometrium and 0.4 cm myometrial cyst posterior to the endometrium. No significant free fluid. Endometrial thickness is 7 mm. Right ovary measures 2.0 x 1.3 x 2.1 cm, volume 2.9 mL. Left ovary measures 3.0 x 1.8 x 1.6 cm, volume 4.5 mL. Bilateral ovaries are grossly unremarkable, allowing for limited visualization. [facility] Medical History Toenail fungus Pneumothorax Type 2 diabetes mellitus without complication, with no history of insulin use PTSD (post-traumatic stress disorder) Psoriasis Obesity Dyslipidemia Surgical History History of cystoscopy Hx of colonoscopy History of removal of cyst History of tooth extraction H/O LEEP Family History Father Asthma Emphysema lung Diabetes mellitus Mother History of heart attack Cervical cancer Iron deficiency CVD (cardiovascular disease) Paternal Grandfather History of heart attack Daughter No problems noted. Son No problems noted. Social History Household Members: Other Household Members Other:: Brother Housing: House Are you a primary medicare biller to a significant other at home: No Do you presently have visiting nurse or other home services: No Alcohol intake: former Patient Tobacco Use Status: Never used Tobacco e-Cigarette/Vaping Use: Never Used Second Hand Smoke Exposure: No service: No Current occupational status: employed Sexual orientation: Straight/Heterosexual Cognitive needs: No Hearing needs: No Vision needs: Yes Female Reproductive History Menstrual Age of Menarche: 14 Review of Systems Const All systems reviewed & are unremarkable except as noted in HPI and below Reports as per HPI and Reports no additional complaints GI Reports no additional complaints Reports no additional complaints Assessment & Plan Assessment & Plan (1) Abnormal uterine bleeding (AUB): Code(s): N93.9 - Abnormal uterine and vaginal bleeding, unspecified Plan Discussed with the patient the results of the work up done and options of treatment including but not limited to BCP's, cyclic Progesterone, Mirena IUD, endometrial ablation and hysterectomy. All pros, cons, risks and benefits of each option were discussed with the patient and the patient decided to go ahead with cyclic Provera, so a more detailed discussion re: Progesterone treatment including mechanism of action, benefits (regular menses, endometrial protection form unopposed estrogen and reduction in the risk of endometrial hyperplasia and/or cancer ...), risks (Thrombosis, mood changes, weight gain, breast soreness, ? increased breast ca, others). Instructions were given to use a back- up method for contraception since this is not a method control, take the medication 1 tablet daily starting day 15-24 and to schedule a 3 months follow-up appointment; patient verbalized understanding and agreed with the plan. Medications: New medroxyprogesterone (Provera) start Provera 1 tablet daily from day 15-24 cyclically every months, day 1 being 1st day of menses 10 mg PO DAILY 10 days 30 tabs 0RF Coding Level of Care Code Est Pt Level 3 (01379) Diagnoses Abnormal uterine bleeding (AUB) N93.9
== END 2024-08-08 11:00 | disposition home or self-care (01) ==
LOC: HO.HWS 10:42
PROVIDERS: PCP Internal Medicine; Visit Provider Obstetrics & Gynecology
DX: N93.9 Abnormal uterine and vaginal bleeding, unspecified (principal)
CPT/HCPCS: 99213

== ENCOUNTER → 2024-08-08 10:42 | Outpatient (BNVA) | payer OTHER, SELFPAY | PROVIDERS: PCP Internal Medicine; Visit Provider Obstetrics & Gynecology | DX: N93.9 Abnormal uterine and vaginal bleeding, unspecified (principal) | CPT/HCPCS: 99212 ==

== ENCOUNTER 2024-08-26 06:49 | Outpatient (REF) | payer OTHER, SELFPAY ==
[2024-08-26 10:07] LABS: MANUAL DIFF FLAG NO
[2024-08-26 10:14] LABS: Basophils Percent Auto 0.6 % (0-2); Eosinophils Absolute Auto 0.2 X10*3/uL (0.0-0.4); Eosinophils Percent Auto 2.4 % (0-4); Hematocrit 45.5 % (37.0-47.0); Hemoglobin 15.5 g/dl (12.0-16.0); Imm Gran Abs Auto 0.01 X10*3/uL (0.00-0.03); Imm Gran Pct Auto 0.2 % (0.0-0.4); Lymphocytes Absolute Auto 2.6 X10*3/uL (1.2-4.9); Lymphocytes Percent Auto 38.7 % (20-40); Mean Corpuscular HGB Conc 34.1 g/dl (31.0-35.0); Mean Corpuscular Hemoglobin 29.2 pg (27.0-33.0); Mean Corpuscular Volume 85.7 fL (80.0-98.0); Monocytes Absolute Auto 0.3 X10*3/uL (0.1-1.2); Monocytes Percent Auto 4.4 % (2-11); Neutrophils Absolute Auto 3.5 x10*3/uL (2.0-8.3); Neutrophils Percent Auto 53.7 % (45-73); Platelet Count 174 X10*3/uL (160-400); Red Blood Count 5.31 X10*6/uL (4.20-5.50); White Blood Count 6.6 X10*3/uL (4.8-10.8)
[2024-08-26 10:45] LABS: Alanine Aminotransferase 17 U/L (0-31); Albumin Level 4.4 g/dL (3.5-5.0); Alkaline Phosphatase 65 U/L (39-117); Anion Gap 13 (12-20); Aspartate Amino Transferase 22 U/L (5-31); Bilirubin Total 0.7 mg/dL (0.0-1.0); Blood Urea Nitrogen 13 mg/dL (9-16); Calcium 9.3 mg/dL (8.4-10.2); Carbon Dioxide 26 mmol/L (22-29); Chloride 104 mmol/L (96-108); Cholesterol 113 mg/dL (<200); Estimated Glomerular Filt Rate > 60; Glucose Fasting 112 mg/dL (60-99); HDL Cholesterol 46 mg/dL (>40); Iron 76 mcg/dL (30-160); LDL Cholesterol Calculated 45 mg/dL (<100); Percent Iron Saturation 28 % (15-50); Potassium 3.9 mmol/L (3.3-5.1); Sodium 139 mmol/L (135-145); Total Iron Binding Capacity 276 mcg/dL (228-428); Total Protein 7.7 g/dL (6.5-8.0); Triglycerides 113 mg/dL (<150); Unsaturated Iron Binding 200 ug/dL
[2024-08-26 10:50] LABS: Estimated Average Glucose 123 mg/dL; Hemoglobin A1C 165.7405 umol/L; Hemoglobin A1c % 5.9 % (<6.0); Total Hemoglobin (HGBA1C) 4032.6506 umol/L
[2024-08-26 11:05] LABS: Ferritin 50 ng/mL (10-250); Vitamin D 25-OH Total 39.5 ng/mL (>30)
== END 2024-08-26 06:50 | disposition home or self-care (01) ==
LOC: HO.HMGCLDS 06:49
PROVIDERS: PCP Internal Medicine; Visit Provider Internal Medicine
DX: E83.119 Hemochromatosis, unspecified (principal); E66.9 Obesity, unspecified; E78.5 Hyperlipidemia, unspecified; L40.9 Psoriasis, unspecified
CPT/HCPCS: 36415; 80053; 80061; 82306; 82728; 83036; 83540; 85025

== ENCOUNTER 2024-08-28 08:27 | Outpatient (AMB) | payer OTHER, SELFPAY ==
--- NOTE | 2024-08-28 08:55 | MHC.PC.OV ---
Vital Signs 08/28/24 08:56 Height 5 ft 4 in Weight 178 lb BMI 30.6 BP 116/78 Blood Pressure Location Rt brachial Position Sitting Pulse 80 Pulse Source Pulse Oximeter Pulse Oximetry (%) 99 Oxygen Delivery Method Room Air Intake Visit Reasons: DM Intake Note: Pt is here today for her f/u DM Allergies trazodone Adverse Reaction (Unknown, Verified 09/01/24 22:04) Weakness Medication List - Last Reconciled 09/01/24 by Karen Jain MD empagliflozin (Jardiance) 25 mg PO QAM medroxyprogesterone (Provera) 10 mg PO DAILY 10 days metformin 1,000 mg PO BIDWMEAL 3 months rosuvastatin 5 mg PO DAILY tapinarof 1% (Vtama) 1 appl topical DAILY Tobacco use date assessed: 08/28/24 Dental Screening Dental Screen Date: 08/28/24 Did you have a dental visit in the last 12 months?: No Did you have a dental problem in the last 6 months where you did not have access to dental care?: No Was dental information given to patient?: Patient has dentist HPI DM HPI Details 49-year-old lady with diabetes mellitus, hyperlipidemia, psoriasis, here today for follow-up. She has been doing well, works 2 jobs, where she does a lot of walking, has lost weight. Compliant with taking her medications and has been following recommended diet. Psoriasis has been controlled very well with Vtama, prescribed by her sheet rock applier, Dr. Martini . Latest fasting labs showed diabetes and lipids very well controlled with hemoglobin A1c now at 5.9% and fasting lipids within normal limits. [facility] Medical History (Updated 08/28/24 @ 09:45 by Karen Jain MD) Controlled diabetes mellitus type II without complication Toenail fungus Pneumothorax Type 2 diabetes mellitus without complication, with no history of insulin use PTSD (post-traumatic stress disorder) Psoriasis Obesity Dyslipidemia Surgical History History of cystoscopy Hx of colonoscopy History of removal of cyst History of tooth extraction H/O LEEP Family History Father Asthma Emphysema lung Diabetes mellitus Mother History of heart attack Cervical cancer Iron deficiency CVD (cardiovascular disease) Paternal Grandfather History of heart attack Daughter No problems noted. Son No problems noted. Social History Household Members: Other Household Members Other:: Brother Housing: House Are you a primary direct care worker to a significant other at home: No Do you presently have visiting nurse or other home services: No Alcohol intake: former Patient Tobacco Use Status: Never used Tobacco e-Cigarette/Vaping Use: Never Used Second Hand Smoke Exposure: No service: No Current occupational status: employed Sexual orientation: Straight/Heterosexual Cognitive needs: No Hearing needs: No Vision needs: Yes Female Reproductive History Menstrual Age of Menarche: 14 Questionnaire Thrive Questionnaire Date Thrive assessed: 08/28/24 I am a: Patient What is your living situation today?: I have a steady place to live Within the past 12 months, did the food you bought not last and you didn't have the money to get more?: Sometimes True Within the past 12 months, did you worry whether your food would run out before you got money to buy more?: Sometimes True Do you have trouble paying for medicines?: No Do you have trouble getting transportation to medical appointments?: No Do you have trouble paying your heating and electricity bill?: I choose not to answer this question Do you have trouble taking care of your child, family member or friend?: No Do you have trouble with day-to-day activities such as bathing, preparing meals, shopping, managing finances, etc.?: No Are you currently unemployed and looking for a job?: No Are you interested in more education?: No Please select the resources that you would like help with: Food and Utilities Currently or been in a relationship where the following occur: I choose not to answer THRIVE Score: 2 AUDIT C Alcohol Use Questionnaire (AUDIT-C) 1. How often do you have a drink containing alcohol?: Never 2. How many drinks containing alcohol do you have on a typical day when you are drinking?: 1 or 2 3. How often do you have six or more drinks on one occasion?: Never Total Score: 0 NIKKI-7 AMB Questionnaire NIKKI-7 Date NIKKI - 7 assessed: 11/21/23 Feeling nervous, anxious, or on edge: 1 = Several days Not being able to stop or control worryin = Nearly every day Worrying too much about different things: 1 = Several days Trouble relaxin = More than half the days Being so restless that it is hard to sit still: 0 = Not at all Becoming easily annoyed or irritable: 1 = Several days Feeling afraid as if something awful might happen: 1 = Several days Total NIKKI-7 score (0-4 normal; 5-9 mild; 10-14 moderate; 15-21 severe): 9 Source: Developed by Drs. Joshua Rosales, Jamila Chinchilla, Shahram Fisher and colleagues, with an educational elle from [employer]. Review of Systems Const Reports no additional complaints Eyes Reports no additional complaints ENT Reports no additional complaints Card Reports no additional complaints Resp Reports no additional complaints GI Denies abdominal pain, Denies belching, Denies melena, Denies bloating, Denies change in bowel habits, Denies excessive flatus, Denies dyspepsia and Denies heartburn Reports no additional complaints Musc Reports no additional complaints Skin/Breast Reports as per HPI Neuro Reports no additional complaints Psych Reports no additional complaints Endo Reports no additional complaints Jose/Lymph Reports no additional complaints Aller/Immun Reports no additional complaints Physical exam (Primary Care) Vital Signs: Last Vital Signs Pulse 80 08/28/24 08:56 BP 116/78 08/28/24 08:56 Pulse Ox 99 08/28/24 08:56 Oxygen Delivery Method Room Air 08/28/24 08:56 BMI result Body Mass Index 30.6 Tobacco/Smoking Status: Tobacco use Status Tobacco use date assessed 08/28/24 08/28/24 09:00 Patient Tobacco Use Status Never used Tobacco 08/28/24 08:56 Tobacco use type 01/18/24 09:33 e-Cigarette/Vaping Use Never Used 08/28/24 08:56 PHQ-9: PHQ-9 Score PHQ-9: Total score 5 08/28/24 09:42 Thrive Assessment: Date of Thrive Assessment Date Thrive assessed 08/28/24 08/28/24 09:00 Currently or been in a relationship where the following occur: I choose not to answer Const Other: Obese, alert, oriented x3, ambulatory normal gait General: no acute distress HENMT Head: Yes normocephalic General nose exam: Normal external nose present Face and sinus: Yes face symmetric Mouth: Normal oral and palatal mucosa present, oropharynx normal and moist mucous membranes Eyes General: appearance normal, both eyes and all related structures Neck Other: Supple, no lymphadenopathy, thyroid gland nonpalpable Neck: Yes full ROM, Yes no lymphadenopathy and Yes supple Resp Effort & Inspection: normal respiratory effort and able to speak in complete sentences Auscultation: clear to auscultation bilaterally Cardio Rate: regular rate Rhythm: regular rhythm Heart sounds: S1 normal heart sound present and S2 normal heart sound present GI Other: Normal bowel sounds, soft, nontender with no mass palpated Auscultation: normal bowel sounds Other: Sees OBGYN for her routine Pap and pelvic exam has appointment for March 06, 2024 General: Yes no CVA tenderness Back/Spine/Pelvis Back: no CVA tenderness and No back tenderness Skin Other: slightly raised erythematous white plaque on extensor surfaces of both elbows Nails: yellow and thickened (Toes on right foot) Neuro General: gait normal, tone normal, moves all extremities, Normal light touch and pain sensation, no focal motor deficits and CN's II-XI intact bilaterally Extrem General: Yes full ROM, Yes no joint enlargement, Yes no pedal edema, Yes no calf tenderness and Yes normal gait Psych Appearance: grossly normal and well kempt Mental Status: mental status grossly normal Speech and movement: Normal speech and movement present Affect: normal affect Attitude: cooperative Thought process: Normal thought process present Thought content: Normal thought content present Office Procedures Flu Questionnaire Does the patient have a severe egg allergy?: No Does the patient have severe life threatening allergies?: No Does the patient have a fever or illness today?: No Has the patient ever had Guillain-Bayside Syndrome?: No Has the patient ever had any past reaction to a flu shot?: No Immunizations Fluarix Triv 3721-4088 (PF) 45 mcg (15 mcg x 3)/0.5 mL IM syringe Performing Provider: Karen Jain MD Performing Location: [facility] [place] [facility] Administered by: Marianne Shahid CMA on 08/28/24 09:09 Dose Route Admin Location Dispensed Lot Number Expiration Date [facility] Cte Teacher 0.5 mL IM Right Deltoid 0.5 mL [id number] 04/21/25 [id number] Contour VIS Given Date VIS Provided VIS Publication Date 08/28/24 Single Vaccine 21 Eligibility Eligibility Date Funding Source Not VFC Eligible 08/28/24 Private Results Reviewed Results Reviewed: Name: Leisa Segovia Age/Sex: 49/F : 1975 Unit#: [id number] Attend Dr: Karen Jain MD Re08/26/24 Status: DEP REF Location: [facility] Disch: SPEC : [id number] DAVID: 08/26/24 STATUS: COMP REQ : [id number] RECD: 08/26/24-[address]: Karen Jain MD COMP: 08/26/24 ENTERED: 08/26/[address] [facility] [address]: ORDERED: CBC Auto Diff Test Result Flag Reference WBC 6.6 4.8-10.8 X10*3/uL RBC 5.31 4.20-5.50 X10*6/uL HGB 15.5 12.0-16.0 g/dl HCT 45.5 37.0-47.0 % MCV 85.7 80.0-98.0 fL MCH 29.2 27.0-33.0 pg MCHC 34.1 31.0-35.0 g/dl RDW 12.0 11.0-16.0 % PLT 174 160-400 X10*3/uL MPV 12.0 9.4-12.3 fL Neut Pct Auto 53.7 45-73 % ImGran Pct Auto 0.2 0.0-0.4 % Lymp Pct Auto 38.7 20-40 % [place] Pct Auto 4.4 2-11 % Eos Pct Auto 2.4 0-4 % Baso Pct Auto 0.6 0-2 % NRBC Pct Auto 0.0 0.0-0.2 /100WBC ANC Neut Abs # 3.5 2.0-8.3 x10*3/uL ImGran Abs Auto 0.01 0.00-0.03 X10*3/uL Lymph Abs Auto 2.6 1.2-4.9 X10*3/uL [place] Abs Auto 0.3 0.1-1.2 X10*3/uL Eos Abs Auto 0.2 0.0-0.4 X10*3/uL Baso Abs Auto 0.0 0.0-0.2 X10*3/uL NRBC Abs Auto 0.000 0.0-0.012 X10*3/uL Name: Leisa Segovia Age/Sex: 49/F : 1975 Unit#: [id number] Attend Dr: Karen Jain MD Re08/26/24 Status: DEP REF Location: [facility] Disch: SPEC : [id number] DAVID: 08/26/24 STATUS: COMP REQ : [id number] RECD: 08/26/24-[address]: Karen Jain MD COMP: 08/26/24 ENTERED: 08/26/24-[address] [facility] [address]: ORDERED: CMP Fast, IRON PROF, Ferritin, Lipid Panel, Vitamin D 25-OH Test Result Flag Reference Sodium 139 135-145 mmol/L Potassium 3.9 3.3-5.1 mmol/L CL 104 96-108 mmol/L CO2 26 22-29 mmol/L Gap 13 12-20 BUN 13 9-16 mg/dL Creat 0.80 0.5-1.4 mg/dL EGFR > 60 NOTE: For -B[place] individuals, multiply the result by 1.210. Chronic Kidney Disease: Estimated GFR < 60 mL/min/1.73m2 Severe Kidney Disease: Estimated GFR < 15 mL/min/1.73m2 FBS 112 H 60-99 mg/dL A fasting glucose from 100-125 mg/dl is considered impaired (pre-diabetes). CA 9.3 8.4-10.2 mg/dL Iron 76 30-160 mcg/dL TIBC 276 228-428 mcg/dL Saturation 28 15-50 % UIBC 200 ug/dL Ferritin 50 10-250 ng/mL Total Bili 0.7 0.0-1.0 mg/dL AST (GOT) 22 5-31 U/L ALT (GPT) 17 0-31 U/L Protein, Total 7.7 6.5-8.0 g/dL Alb 4.4 3.5-5.0 g/dL Triglyceride 113 <150 mg/dL Desirable Triglyceride: less than 150 mg/dL Borderline High Triglyceride 150-199 mg/dL High Triglyceride: 200-499 mg/dL Very High Triglyceride: greater than or equal to 5OO mg/dL Cholesterol 113 <200 mg/dL Desirable Cholesterol: less than 200 mg/dL Borderline High Cholesterol: 200-239 mg/dL High Cholesterol: greater than 239 mg/dL LDL Calculated 45 <100 mg/dL Desirable LDL: less than 100 mg/dL Near Optimal/Above Optimal LDL: 110-129 mg/dL Borderline High LDL: 130-159 mg/dL High LDL: 160-189 mg/dL Very High LDL: greater than or equal to 190 mg/dL HDL 46 >40 mg/dL Desirable HDL: greater than 40 mg/dL Note: This HDL assay may give artificially low results in patients with liver disease. Alk Phos 65 39-117 U/L Vit D 25-OH Tot 39.5 >30 ng/mL Health Based Reference Values* < 20 ng/mL Deficient 20-30 ng/mL Insufficient > 30 ng/mL Sufficient Laboratory Tests 11/21/23 08/26/24 10:45 06:52 Estimat Average Glucose 123 Hemoglobin A1c % 5.9 Microalb/Creat Ratio 19.6 Coding Level of Care Code Est Pt Level 4 (46283) Complex EM visit Add On G2211 Diagnoses Dyslipidemia E78.5 Controlled diabetes mellitus type II without complication E11.9 Assessment & Plan Assessment & Plan (1) Dyslipidemia: Code(s): E78.5 - Hyperlipidemia, unspecified Category: Medical Plan: Lipids are within normal limits, continued on rosuvastatin 5 mg daily, continue doing regular exercise, and adherence to healthy diet. (2) Controlled diabetes mellitus type II without complication: Code(s): E11.9 - Type 2 diabetes mellitus without complications Category: Medical Plan: Excellent control of diabetes mellitus now observed, with hemoglobin A1c at 5.9%. Continue with metformin 1000 mg 1 tablet twice a day with meals and Jardiance 25 mg daily in a.m.. Reinforced importance of following diabetic diet and getting regular exercise. Reminded to get updated yearly eye exam for diabetes retinopathy screening. Orders: Orders Lipid Panel 11/16/24 E11.9 - Type 2 diabetes mellitus without complications, E78.5 - Hyperlipidemia, unspecified, Z78.0 - Asymptomatic menopausal state Vitamin D 25-OH Total 11/16/24 E11.9 - Type 2 diabetes mellitus without complications, E78.5 - Hyperlipidemia, unspecified, Z78.0 - Asymptomatic menopausal state Influenza [id number] Immunization 08/28/24 Z23 - Encounter for immunization Hemoglobin A1c 11/16/24 E11.9 - Type 2 diabetes mellitus without complications, E78.5 - Hyperlipidemia, unspecified, Z78.0 - Asymptomatic menopausal state Alanine Aminotransferase 11/16/24 E11.9 - Type 2 diabetes mellitus without complications, E78.5 - Hyperlipidemia, unspecified, Z78.0 - Asymptomatic menopausal state Aspartate Amino Transferase 11/16/24 E11.9 - Type 2 diabetes mellitus without complications, E78.5 - Hyperlipidemia, unspecified, Z78.0 - Asymptomatic menopausal state Basic Metabolic Panel Fasting 11/16/24 E11.9 - Type 2 diabetes mellitus without complications, E78.5 - Hyperlipidemia, unspecified, Z78.0 - Asymptomatic menopausal state Microalbumin, Random (w Creat) 11/16/24 E11.9 - Type 2 diabetes mellitus without complications, E78.5 - Hyperlipidemia, unspecified, Z78.0 - Asymptomatic menopausal state
[2024-08-28 08:56] VITALS: BP 116/78; PULSE 80; O2SAT 99; BMI 30.6
== END 2024-08-28 11:02 | disposition home or self-care (01) ==
LOC: HO.HMCC 08:28
PROVIDERS: PCP Internal Medicine; Visit Provider Internal Medicine
DX: E78.5 Hyperlipidemia, unspecified (principal); E11.9 Type 2 diabetes mellitus without complications

== ENCOUNTER → 2024-08-28 08:27 | Outpatient (BNVA) | payer OTHER, SELFPAY | PROVIDERS: PCP Internal Medicine; Visit Provider Internal Medicine | DX: Z23 Encounter for immunization (principal); E11.9 Type 2 diabetes mellitus without complications; E78.5 Hyperlipidemia, unspecified | CPT/HCPCS: 90471; 90656; 99212 ==

== ENCOUNTER 2025-08-07 07:45 | Outpatient (REF) | payer OTHER, SELFPAY ==
--- OUTSIDE RECORDS SUMMARY | 2025-08-07 07:48 | XMS_ITS | Clinical Summary ---
Author Organization [address] [place] [address] Address [address] [place] [address] Phone Care Team Providers Care Ad Writer Name Role Phone Karen Jain MD Primary Care Provider [phone] Allergies Active Allergy Reactions Criticality Noted Date Comments Trazodone Weakness 05/10/2024 Medications empagliflozin (Jardiance) 25 mg tablet Take 25 mg by mouth every morning. Active metFORMIN (GLUCOPHAGE) 1,000 mg tablet Take 1 Tablet by mouth 2 times daily (with meals). Active rosuvastatin (CRESTOR) 5 mg tablet Take 1 Tablet by mouth daily. Active tapinarof (Vtama) 1 % cream Apply topically. Active Active Problems Problem Noted Date Diagnosed Date Dyslipidemia 09/02/2024 Obesity 09/02/2024 Pneumothorax 09/02/2024 Psoriasis 09/02/2024 PTSD (post-traumatic stress disorder) 09/02/2024 T2DM (type 2 diabetes mellitus) (CMS/HCC V24, CM S/HCC V28) 09/02/2024 Toenail fungus 09/02/2024 Social History Tobacco Use Types Packs/Day Years Used Date Smoking Tobacco: Never Assessed Comments Unknown Sex and Gender Information Value Date Recorded Sex Assigned at Not on file Legal Sex Female 11:02 AM EDT Gender Identity Not on file Sexual Orientation Not on file Last Filed Vital Signs Vital Sign Reading Time Taken Comments Blood Pressure - - Pulse - - Temperature - - Respiratory Rate - - Oxygen Saturation - - Inhaled Oxygen Concentration - - Weight 86.2 kg (190 lb) 11/28/2024 8:12 AM EST Height 162.6 cm (5' 4.02 ) 11/28/2024 8:12 AM ES T Body Mass Index 32.6 11/28/2024 8:12 AM EST Plan of Treatment Health Maintenance Due Date Last Done Comments Breast Cancer Screening 1975 Colorectal Cancer Screening: Colonoscopy 1975 Diabetes: Annual GFR (Glomerular Filtration Rate) 1975 Diabetes: Annual Foot Exam 01/21/1986 Diabetes: Annual Retina Eye Exam 01/21/1986 Hepatitis B Vaccines (1 of 3 - 19+ 3-dose series) 01/21/1995 Cervical Cancer Screening: Pap Smear 01/21/1997 Pneumococcal Vaccine: Pediatrics (0 to 5 Years) and At-Risk Patients (6 to 49 Years) (2 of 2 - PPSV23, PCV20, or PCV21) 11/13/2018 09/18/2018 Cholesterol Screening (Lipid Panel) 05/15/2024 Diabetes: Annual Urine Albumin-Creatinine Ratio (uACR) 05/15/2024 Diabetes: Blood Sugar Control Test (HGBA1C) 05/15/2024 HIV Screening 05/15/2024 Hepatitis C Screening 05/15/2024 Social Influencers of Health Screening 05/15/2024 Depression Screening 10/23/2024 Influenza Vaccine (#1) 2025 , 08/15/2023, 09/06/2022, Additional history exists DTaP,Tdap,and Td Vaccines (2 - Td or Tdap) 12/06/2025 12/06/2015 RSV Immunization Adult Patients (1 - 1-dose 75+ series) 01/21/2051 COVID-19 Vaccine Completed 09/04/2024, , 02/12/2022, Additional history exists HIB Vaccines Aged Out No longer eligi ble based on patient's age to complete this topic HPV Vaccines Aged Out No longer eligi ble based on patient's age to complete this topic Hepatitis A Vaccines Aged Out No long er eligible based on patient's age to complete this topic IPV Vaccines Aged Out No longer eligi ble based on patient's age to complete this topic MMR Vaccines Aged Out No longer eligi ble based on patient's age to complete this topic Meningococcal ACWY Vaccine Aged Out N o longer eligible based on patient's age to complete this topic Meningococcal B Vaccine Aged Out No l onger eligible based on patient's age to complete this topic RSV Immunization Patients Under 20 months Aged Out No longer eligible based on patient's age to complete this topic Varicella Vaccines Aged Out No longer eligible based on patient's age to complete this topic Insurance [facility] Care Teams Ad Writer Relationship Specialty Start Date End Date Karen Jain MD [address] [place] [address] PCP - General 03/01/24
[2025-08-07 11:19] LABS: Alanine Aminotransferase 60 U/L (0-31); Anion Gap 12 (12-20); Aspartate Amino Transferase 39 U/L (5-31); Blood Urea Nitrogen 10 mg/dL (9-16); Calcium 8.7 mg/dL (8.4-10.2); Carbon Dioxide 23 mmol/L (22-29); Chloride 106 mmol/L (96-108); Cholesterol 111 mg/dL (<200); Estimated Glomerular Filt Rate > 60; HDL Cholesterol 40 mg/dL (>40); Potassium 3.9 mmol/L (3.3-5.1); Sodium 137 mmol/L (135-145)
[2025-08-07 11:21] LABS: Triglycerides 104 mg/dL (<150)
== END 2025-08-07 07:46 | disposition home or self-care (01) ==
LOC: HO.HMGCLDS 07:45
PROVIDERS: PCP Internal Medicine; Visit Provider Internal Medicine
DX: E11.9 Type 2 diabetes mellitus without complications (principal); E78.5 Hyperlipidemia, unspecified; Z78.0 Asymptomatic menopausal state
CPT/HCPCS: 36415; 80048; 80061; 82043; 82306; 82570; 83036; 84450; 84460

== ENCOUNTER 2025-08-11 10:57 | Outpatient (AMB) | payer OTHER, SELFPAY ==
[2025-08-11 11:24] VITALS: BP 102/80; PULSE 82; RESP 16; TEMP 36.9; O2SAT 98; BMI 34.5
--- NOTE | 2025-08-11 11:24 | A.OFFPC_ITS ---
Vital Signs 08/11/25 11:24 Height 5 ft 4 in Weight 201 lb BMI 34.5 BP 102/80 Blood Pressure Location Rt brachial Position Sitting Respiration 16 Pulse 82 Pulse Source Pulse Oximeter Temp 98.5 F Temp Source Oral Pulse Oximetry (%) 98 Oxygen Delivery Method Room Air Intake Visit Reasons: Annual PE Intake Note: Pt is here today for her PE: mammogram 11/16/23, papsmear 03/07/24 Furnace Combustion Analyst Required: No Allergies trazodone Adverse Reaction (Unknown, Verified 08/11/25 11:53) Weakness Medication List - Last Reconciled 08/11/25 by Karen Jain MD clonidine HCl 0.1 mg PO BEDTIME empagliflozin (Jardiance) 25 mg PO QAM escitalopram oxalate 20 mg PO DAILY medroxyprogesterone (Provera) 10 mg PO DAILY 10 days metformin 1,000 mg PO BIDWMEAL 3 months rosuvastatin 5 mg PO DAILY tapinarof 1% (Vtama) 1 appl topical DAILY Tobacco use date assessed: 08/11/25 Dental Screening Dental Screen Date: 08/11/25 Did you have a dental visit in the last 12 months?: Yes Did you have a dental problem in the last 6 months where you did not have access to dental care?: No Was dental information given to patient?: Patient has dentist HPI Annual PE HPI Details 50-year-old lady here today for her phys ical exam. Up-to-date with her cervical cancer screening, last done in 2023 with negative findings, due for her breast cancer screening, with last mammogram done 11/16/2023 [facility] Medical History (Updated 08/11/25 @ 12:09 by Karen Jain MD) Controlled diabetes mellitus type II without complication Toenail fungus Pneumothorax Type 2 diabetes mellitus without complication, with no history of insulin use PTSD (post-traumatic stress disorder) Psoriasis Obesity Dyslipidemia Surgical History History of cystoscopy Hx of colonoscopy History of removal of cyst History of tooth extraction H/O LEEP Family History Father Asthma Emphysema lung Diabetes mellitus Mother History of heart attack Cervical cancer Iron deficiency CVD (cardiovascular disease) Paternal Grandfather History of heart attack Daughter No problems noted. Son No problems noted. Social History Household Members: Other Household Members Other:: Brother Housing: House Are you a primary caretaker grounds to a significant other at home: No Do you presently have visiting nurse or other home services: No Alcohol intake: former Patient Tobacco Use Status: Never used Tobacco e-Cigarette/Vaping Use: Never Used Second Hand Smoke Exposure: No service: No Current occupational status: employed Sexual orientation: Straight/Heterosexual Cognitive needs: No Hearing needs: No Vision needs: Yes Female Reproductive History Menstrual Age of Menarche: 14 Questionnaire PHQ-9 Over the last 2 weeks, how often have you been bothered by any of the following problems? 1. Little interest or pleasure in doing things: not at all 2. Feeling down, depressed, or hopeless: not at all 3. Trouble falling or staying asleep, or sleeping too much: not at all 4. Feeling tired or having little energy: not at all 5. Poor appetite or overeating: not at all 6. Feeling bad about yourself - or that you are a failure or have let yourself or your family down: not at all 7. Trouble concentrating on things, such as reading the newspaper or watching television: not at all 8. Moving or speaking so slowly that other people could have noticed. Or the opposite - being so fidgety or restless that you have been moving around a lot more than usual: not at all 9. Thoughts that you would be better off or of hurting yourself in some way: not at all Total score: 0 Depression Screening Interpretation: Negative Depression Screening Done: Yes 49878 - PHQ-9 Billing: Yes Source: Developed by Drs. Joshua Rosales, Jamila Chinchilla, Shahram Fisher and colleagues, with an educational elle from [employer]. Thrive Questionnaire Date Thrive assessed: 08/28/24 I am a: Patient What is your living situation today?: I have a steady place to live Within the past 12 months, did the food you bought not last and you didn't have the money to get more?: Sometimes True Do you have trouble paying for medicines?: No Do you have trouble getting transportation to medical appointments?: No Do you have trouble paying your heating and electricity bill?: No Do you have trouble taking care of your child, family member or friend?: No Do you have trouble with day-to-day activities such as bathing, preparing meals, shopping, managing finances, etc.?: No Are you currently unemployed and looking for a job?: No Are you interested in more education?: No Please select the resources that you would like help with: None Currently or been in a relationship where the following occur: No concerns reported THRIVE Score: 1 AUDIT C Alcohol Use Questionnaire (AUDIT-C) 1. How often do you have a drink containing alcohol?: Never 2. How many drinks containing alcohol do you have on a typical day when you are drinking?: 1 or 2 3. How often do you have six or more drinks on one occasion?: Never Total Score: 0 Score Reviewed/Action Taken: Yes NIKKI-7 AMB Questionnaire NIKKI-7 Date NIKKI - 7 assessed: 08/11/25 Feeling nervous, anxious, or on edge: 0 = Not at all Not being able to stop or control worryin = Not at all Worrying too much about different things: 0 = Not at all Trouble relaxin = Not at all Being so restless that it is hard to sit still: 0 = Not at all Becoming easily annoyed or irritable: 1 = Several days Feeling afraid as if something awful might happen: 0 = Not at all Total NIKKI-7 score (0-4 normal; 5-9 mild; 10-14 moderate; 15-21 severe): 1 Source: Developed by Drs. Joshua Rosales, Jamila Chinchilla, Shahram Fisher and colleagues, with an educational elle from [employer]. NIKKI-7 Assessment Billing NIKKI-7 Assessment Tool: NIKKI-7 Assessment 99854 Physical exam (Primary Care) Vital Signs: Last Vital Signs Temp 98.5 F 08/11/25 11:24 Pulse 82 08/11/25 11:24 Resp 16 08/11/25 11:24 BP 102/80 08/11/25 11:24 Pulse Ox 98 08/11/25 11:24 Oxygen Delivery Method Room Air 08/11/25 11:24 BMI result Body Mass Index 34.5 Tobacco/Smoking Status: Tobacco use Status Tobacco use date assessed 08/11/25 08/11/25 11:27 Patient Tobacco Use Status Never used Tobacco 08/11/25 11:27 Tobacco use type 01/18/24 09:33 e-Cigarette/Vaping Use Never Used 08/11/25 11:27 PHQ-9: PHQ-9 Score PHQ-9: Total score 0 08/11/25 11:53 Depression Screening Interpretation: Negative Thrive Assessment: Date of Thrive Assessment Date Thrive assessed 08/28/24 08/11/25 11:27 Currently or been in a relationship where the following occur: No concerns reported Office Procedures Flu Questionnaire Does the patient have a severe egg allergy?: No Does the patient have severe life threatening allergies?: No Does the patient have a fever or illness today?: No Has the patient ever had Guillain-Moonachie Syndrome?: No Has the patient ever had any past reaction to a flu shot?: No Immunizations Fluarix [id number] (PF) 45 mcg (15 mcg x 3)/0.5 mL IM syringe Performing Provider: Karen Jain MD Performing Location: [facility] Administered by: Marianne Shahid CMA on 08/11/25 11:52 Dose Route Admin Location Dispensed Lot Number Expiration Date [facility] Warehouse Examiner 0.5 mL IM Right Deltoid 0.5 mL [id number] 04/21/26 01101-798-41 [employer] VIS Given Date VIS Provided VIS Publication Date 08/11/25 Single Vaccine 24 Eligibility Eligibility Date Funding Source Not [facility] Eligible 08/11/25 Private Results Reviewed Results Reviewed: Name: Leisa Segovia Age/Sex: 50/F : 1975 Unit#: [id number] Attend Dr: Karen Jain MD Re08/07/25 Status: DEP REF [facility] Disch: SPEC : [id number] DAVID: 08/07/250750 STATUS: COMP REQ : [id number] RECD: 08/07/25-[address]: Karen Jain MD COMP: 08/07/25-1119 ENTERED: 08/07/250749 OT DR: ORDERED: Met Prof Fast, AST, ALT, Lipid Panel, Vitamin D 25-OH Test Result Flag Reference Sodium 137 135-145 mmol/L Potassium 3.9 3.3-5.1 mmol/L CL 106 96-108 mmol/L CO2 23 22-29 mmol/L Gap 12 12-20 BUN 10 9-16 mg/dL Creat 0.72 0.5-1.4 mg/dL eGFR > 60 Chronic Kidney Disease: Estimated GFR < 60 mL/min/1.73m2 Severe Kidney Disease: Estimated GFR < 15 mL/min/1.73m2 FBS 129 H 60-99 mg/dL A fasting glucose of 126 mg/dl or greater on more than one occasion is considered diagnostic of diabetes. CA 8.7 # 8.4-10.2 mg/dL AST (GOT) 39 H 5-31 U/L ALT (GPT) 60 H 0-31 U/L Triglyceride 104 <150 mg/dL Desirable Triglyceride: less than 150 mg/dL Borderline High Triglyceride 150-199 mg/dL High Triglyceride: 200-499 mg/dL Very High Triglyceride: greater than or equal to 5OO mg/dL Cholesterol 111 <200 mg/dL Desirable Cholesterol: less than 200 mg/dL Borderline High Cholesterol: 200-239 mg/dL High Cholesterol: greater than 239 mg/dL LDL Calculated 51 <100 mg/dL Desirable LDL: less than 100 mg/dL Near Optimal/Above Optimal LDL: 110-129 mg/dL Borderline High LDL: 130-159 mg/dL High LDL: 160-189 mg/dL Very High LDL: greater than or equal to 190 mg/dL HDL 40 L >40 mg/dL Desirable HDL: greater than 40 mg/dL Note: This HDL assay may give artificially low results in patients with liver disease. Vitamin D 25-OH 22.3 L >30 ng/mL Health Based Reference Values* < 20 ng/mL Deficient 20-30 ng/mL Insufficient > 30 ng/mL Sufficient Laboratory Tests 08/07/25 08/07/25 07:50 07:55 Estimat Average Glucose 143 Hemoglobin A1c % 6.6 H Urine Creatinine 78.58 Urine Microalbumin < 5.0 Microalb/Creat Ratio TNP Coding Additional Codes NIKKI-7 Assessment Billing - NIKKI-7 Assessment Tool: NIKKI-7 Assessment 99067 ([id number]) PHQ-9 - 57235 - PHQ-9 Billing: Yes ([id number]) Assessment & Plan Assessment & Plan Orders: Orders Aspartate Amino Transferase 3 Months E11.9 - Type 2 diabetes mellitus without complications, E66.9 - Obesity, unspecified, E78.5 - Hyperlipidemia, unspecified, F43.10 - Post-traumatic stress disorder, unspecified, Z00.01 - Encounter for general adult medical examination with abnormal findings Microalbumin, Random (w Creat) 3 Months E11.9 - Type 2 diabetes mellitus without complications, E66.9 - Obesity, unspecified, E78.5 - Hyperlipidemia, unspecified, F43.10 - Post-traumatic stress disorder, unspecified, Z00.01 - Encounter for general adult medical examination with abnormal findings Influenza [id number] Immunization Today Z23 - Encounter for immunization Lipid Panel 3 Months E11.9 - Type 2 diabetes mellitus without complications, E66.9 - Obesity, unspecified, E78.5 - Hyperlipidemia, unspecified, F43.10 - Post-traumatic stress disorder, unspecified, Z00.01 - Encounter for general adult medical examination with abnormal findings Basic Metabolic Panel Fasting 3 Months E11.9 - Type 2 diabetes mellitus without complications, E66.9 - Obesity, unspecified, E78.5 - Hyperlipidemia, unspecified, F43.10 - Post-traumatic stress disorder, unspecified, Z00.01 - Encounter for general adult medical examination with abnormal findings Alanine Aminotransferase 3 Months E11.9 - Type 2 diabetes mellitus without complications, E66.9 - Obesity, unspecified, E78.5 - Hyperlipidemia, unspecified, F43.10 - Post-traumatic stress disorder, unspecified, Z00.01 - Encounter for general adult medical examination with abnormal findings Hemoglobin A1c 3 Months E11.9 - Type 2 diabetes mellitus without complications, E66.9 - Obesity, unspecified, E78.5 - Hyperlipidemia, unspecified, F43.10 - Post-traumatic stress disorder, unspecified, Z00.01 - Encounter for general adult medical examination with abnormal findings Vitamin D 25-OH Total 3 Months E11.9 - Type 2 diabetes mellitus without complications, E66.9 - Obesity, unspecified, E78.5 - Hyperlipidemia, unspecified, F43.10 - Post-traumatic stress disorder, unspecified, Z00.01 - Encounter for general adult medical examination with abnormal findings Medications: New cholecalciferol (vitamin D3) 1,250 mcg PO QWEEK 13 caps 0RF 3 months
== END 2025-08-11 12:18 | disposition home or self-care (01) ==
LOC: HO.HMCC 10:57
PROVIDERS: PCP Internal Medicine; Visit Provider Internal Medicine
DX: Z23 Encounter for immunization (principal)

== ENCOUNTER → 2025-08-11 10:57 | Outpatient (BNVA) | payer OTHER, SELFPAY | PROVIDERS: PCP Internal Medicine; Visit Provider Internal Medicine | DX: Z00.01 Encounter for general adult medical examination with abnormal findings (principal); F39 Unspecified mood [affective] disorder; N92.6 Irregular menstruation, unspecified; R23.2 Flushing; E11.9 Type 2 diabetes mellitus without complications; F43.10 Post-traumatic stress disorder, unspecified; E78.5 Hyperlipidemia, unspecified; E66.9 Obesity, unspecified; E83.119 Hemochromatosis, unspecified; L40.9 Psoriasis, unspecified; Z23 Encounter for immunization; Z68.34 Body mass index [BMI] 34.0-34.9, adult | CPT/HCPCS: 90471; 90656; 96127; 99396 ==

== ENCOUNTER 2025-09-10 14:27 | Outpatient (AMB) | payer OTHER, SELFPAY ==
--- NOTE | 2025-09-10 15:08 | MHC.OFFVIS ---
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 Court Advocate concerns: Experiencing hot flashes. Regular monthly menses. Currently is not sexually active. She denies vaginal itching or irritation. STI screening offered; she declined. She tries to eat healthy and stays active with exercise. Denies family history of breast, ovarian or colon cancer. Last pap smear 2023, negative. Mammogram: 2023. [facility] Medical History Controlled diabetes mellitus type II without complication Toenail fungus Pneumothorax Type 2 diabetes mellitus without complication, with no history of insulin use PTSD (post-traumatic stress disorder) Psoriasis Obesity Dyslipidemia Surgical History History of cystoscopy Hx of colonoscopy History of removal of cyst History of tooth extraction H/O LEEP Family History Father Asthma Emphysema lung Diabetes mellitus Mother History of heart attack Cervical cancer Iron deficiency CVD (cardiovascular disease) Paternal Grandfather History of heart attack Daughter No problems noted. Son No problems noted. Social History Household Members: Other Household Members Other:: Brother Housing: House Are you a primary care transition manager to a significant other at home: No Do you presently have visiting nurse or other home services: No Alcohol intake: former Patient Tobacco Use Status: Never used Tobacco e-Cigarette/Vaping Use: Never Used Second Hand Smoke Exposure: No service: No Current occupational status: employed Sexual orientation: Straight/Heterosexual Cognitive needs: No Hearing needs: No Vision needs: Yes Female Reproductive History Menstrual Age of Menarche: 14 Date of last menstrual period: 08/21/25 Total pregnancies: 4 Full term: 2 Number of Living Children: 2 Ab induced: 2 Date of last pap smear: 03/06/24 (neg pap and hpv) History of abnormal pap smear: Yes (hx leep 2007 kapil 3) Date of Mammogram: 11/16/23 (Birad 1) Review of Systems Const All systems reviewed & are unremarkable except as noted in HPI and below Reports as per HPI Eyes Reports no additional complaints ENT Reports no additional complaints Card Reports no additional complaints Resp Reports no additional complaints GI Reports as per HPI and Reports no additional complaints Reports as per HPI Musc Reports no additional complaints Skin/Breast Reports as per HPI Neuro Reports no additional complaints Psych Reports no additional complaints Endo Reports no additional complaints Jose/Lymph Reports no additional complaints Aller/Immun Reports no additional complaints Physical Exam Vital Signs: Last Vital Signs BP 114/70 09/10/25 15:09 BMI result Body Mass Index 34.0 Const General: cooperative, healthy appearing, no acute distress, well developed and alert Orientation/consciousness: patient oriented x3 HEENT Head: Yes normal to inspection Eyes General: appearance normal, both eyes and all related structures Neck Neck: Yes normal visual inspection Thyroid: Thyroid normal Chest Chest palpation & inspection: normal inspection of the chest and other (no puckering, dimpling, peau de orange, retraction, discharge, masses) Breast/axilla inspection: normal inspection of the breasts Breast/axilla palpation: normal palpation of the breasts Resp Effort & Inspection: normal respiratory effort GI Inspection: Yes normal to inspection Palpation (GI): Soft to palpation Rectal Exam - Female: deferred General: Yes bladder normal to palpation External Female Exam: normal external appearance and normal appearance of the urethra Speculum Exam - Vagina: normal appearance of the vagina, normal palpation and normal vaginal discharge Speculum Exam - Cervix: normal appearance of the cervix and normal palpation Bimanual exam- vagina & uterus: normal bimanual exam, normal palpation, uterine size normal, bladder normal to palpation, normal palpation and non-tender Bimanual Exam- Adnexa, other: no masses Skin General skin exam: no rashes or lesions noted Rashes: no rashes Neuro General: patient oriented x3 Cognition (Neuro): normal cognition Extrem General: Yes normal to inspection Psych Attitude: cooperative Thought process: Normal thought process present Assessment & Plan Assessment & Plan (1) Encounter for well woman exam with routine gynecological exam: Code(s): Z01.419 - Encounter for gynecological examination (general) (routine) without abnormal findings Category: Medical Plan: Discussed: Current recommendations for pap smears per ASCCP guidelines. Breast awareness and periodic breast exams. Mammogram yearly. Mammogram ordered. Maintain a healthy lifestyle including a well balanced diet and routine exercise. Monitor menstrual cycles, report any unscheduled bleeding, bleeding episodes <24 days apart or heavy/prolonged menstrual bleeding. Call the office for a follow up for any concerns. Use condoms for STI and prevention. Patient verbalizes understanding and agrees to the plan of care. She was given opportunity to ask questions and all questions were answered to the best of my ability. RTO in one year for annual signal tower director examination. This note is constructed using voice recognition software. While every effort has been made to ensure accuracy, clinical social work aide errors may have been included. (2) Hot flashes: Code(s): R23.2 - [place] Category: Medical Plan Counseled regarding use of HRT, lifestyle changes, dietary changes, exercise, website references menopausal-perimenopause information provided. The patient expressed understanding and agreement with the plan of care. All of her questions and concerns were addressed to the best of my ability. Advised to review the literature and consider her options. Calls for a follow up consultation at appointment if desires. The patient expressed understanding and agreement with the plan of care. All of her questions and concerns were addressed to the best of my ability. Orders: Orders MM tomosynthesis screening BI Today Z12.31 - Encounter for screening mammogram for malignant neoplasm of breast Coding Level of Care Code Est Pt Prev Care 40-64y(13490) Diagnoses Encounter for well woman exam with routine gynecological exam Z01.419 Hot flashes R23.2
[2025-09-10 15:09] VITALS: BP 114/70; BMI 34.0
== END 2025-09-11 08:33 | disposition home or self-care (01) ==
LOC: HO.HWS 14:27
PROVIDERS: PCP Internal Medicine; Visit Provider Advanced Practice Midwife
DX: Z01.419 Encounter for gynecological examination (general) (routine) without abnormal findings (principal); R23.2 Flushing
CPT/HCPCS: 99396; 99459

== ENCOUNTER → 2025-09-10 14:27 | Outpatient (BNVA) | payer OTHER, SELFPAY | PROVIDERS: PCP Internal Medicine; Visit Provider Advanced Practice Midwife | DX: Z01.419 Encounter for gynecological examination (general) (routine) without abnormal findings (principal) | CPT/HCPCS: 99396 ==

== ENCOUNTER 2025-10-07 14:54 | Outpatient (AMB) | payer OTHER, SELFPAY ==
--- NOTE | 2025-10-07 14:54 | MHC.OFFVIS ---
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 Time spent included review of pertinent office notes in the electronic health record; review of laboratory and imaging results; review of personal family medical history; discussing diagnosis and plan of care with the patient; documenting the encounter in the EMR. Patient presents to discuss: Concerns for perimenopausal symptoms including right leg upper thigh collapses before her menses, dizzy spells, lightheadedness, backache, digestive changes, and hot flashes. Has regular monthly menses. [facility] Medical History Controlled diabetes mellitus type II without complication Toenail fungus Pneumothorax Type 2 diabetes mellitus without complication, with no history of insulin use PTSD (post-traumatic stress disorder) Psoriasis Obesity Dyslipidemia Surgical History History of cystoscopy Hx of colonoscopy History of removal of cyst History of tooth extraction H/O LEEP Family History Father Asthma Emphysema lung Diabetes mellitus Mother History of heart attack Cervical cancer Iron deficiency CVD (cardiovascular disease) Paternal Grandfather History of heart attack Daughter No problems noted. Son No problems noted. Social History Household Members: Other Household Members Other:: Brother Housing: House Are you a primary wound care technician to a significant other at home: No Do you presently have visiting nurse or other home services: No Alcohol intake: former Patient Tobacco Use Status: Never used Tobacco e-Cigarette/Vaping Use: Never Used Second Hand Smoke Exposure: No service: No Current occupational status: employed Sexual orientation: Straight/Heterosexual Cognitive needs: No Hearing needs: No Vision needs: Yes Female Reproductive History Menstrual Age of Menarche: 14 Review of Systems Const All systems reviewed & are unremarkable except as noted in HPI and below Endo Reports no additional complaints Physical Exam Const General: cooperative, healthy appearing and no acute distress Psych Appearance: well kempt Attitude: cooperative Thought process: Normal thought process present Telehealth Telehealth Telehealth Platform: [employer] Location of provider rendering services: practice address Location of patient: address on file Patient Identification confirmed using: Name, : Yes Telehealth method: video Patient verbally consented to treatment: Yes Patient verbally consented to billing insurance company: Yes Patient informed of any privacy concerns related to visit: Yes Assessment & Plan Assessment & Plan (1) Hot flashes: Code(s): R23.2 - [place] Plan Discussed benefits and risks of HRT. Perimenopausal changes, has follow up with PCP in October to discuss lab work including glucose and liver functions. We will speak to her primary care about her symptoms and concerns and consider starting HRT. Advised to continue her vitamin-D therapy. Advised to check in (portal response) if wants to have a prescription sent in, side effects, use of patch and how to apply. The patient expressed understanding and agreement with the plan of care. All of her questions and concerns were addressed to the best of my ability. This note is constructed using voice recognition software. While every effort has been made to ensure accuracy, director of aviation errors may have been included. Coding Level of Care Code Tele Est Pt Level 3 (88502) Diagnoses Hot flashes R23.2
--- OUTSIDE RECORDS SUMMARY | 2025-10-07 19:15 | XMS_ITS | Clinical Summary ---
Author Organization [address] [place] [address] Address [address] [place] [address] Phone Care Team Providers Care Automatic Engraver Name Role Phone Karen Jain MD Primary Care Provider Allergies Active Allergy Reactions Criticality Noted Date [...] disorder) 09/02/2024 T2DM (type 2 diabetes mellitus) 09/02/2024 Toenail fungus 09/02/2024 Social History Tobacco [...] of Health Screening 05/15/2024 Depression Screening 10/23/2024 COVID-19 Vaccine ( season) 2025 09/04/2024, 08/12/2023, 02/12/2022, Additional history exists Influenza Vaccine (#1) 2025 , 08/15/2023, 09/06/2022, Additional history exists DTaP,Tdap,and Td Vaccines (2 - Td or Tdap) 12/06/2025 12/06/2015 RSV Immunization Adult Patients (1 - 1-dose 75+ series) 01/21/2051 HIB Vaccines Aged Out No longer eligi [...] patient's age to complete this topic Insurance [facility] Care Teams Automatic Engraver Relationship Specialty Start Date End Date Karen Jain MD [address] [place] [address] PCP - General 03/01/24
== END 2025-10-07 15:56 | disposition home or self-care (01) ==
LOC: HO.HWS 14:54
PROVIDERS: PCP Internal Medicine; Visit Provider Advanced Practice Midwife
DX: R23.2 Flushing (principal)
CPT/HCPCS: 99213